=== PATIENT | male | born 1960 | race Caucasian/White ===

== ENCOUNTER 2020-06-18 11:01 | Inpatient (IN) ==
[2020-06-18 11:56] LABS: Basophils # (auto) 0.01 K/uL (0-0.2); Basophils % (auto) 0.1 %; Eosinophils # (auto) 0.07 K/uL (0-0.5); Eosinophils % (auto) 0.6 %; Hematocrit (blood only) 33.9 % (42-52); Hemoglobin 11.2 g/dL (14.0-18.0); Immature Granulocytes # (auto) 0.09 K/uL (0.00-0.02); Immature Granulocytes % (auto) 0.7 %; Lymphocytes # (auto) 1.29 K/uL (1.2-3.4); Lymphocytes % (auto) 10.2 %; Mean Corpuscular Hemoglobin 27.9 pg (25-34); Mean Corpuscular Volume 84.5 fL (80-100); Mean Platelet Volume 9.9 fL (7.4-10.4); Monocytes # (auto) 1.45 K/uL (0.11-0.59); Monocytes % (auto) 11.5 %; Neutrophils # (auto) 9.68 K/uL (1.4-6.5); Neutrophils % (auto) 76.9 %; Platelet Count 276 K/uL (130-400); RDW Coefficient of Variation 17.2 % (11.5-14.5); RDW Standard Deviation 53.5 fL (36.4-46.3); Red Blood Count 4.01 M/uL (4.7-6.1); White Blood Count 12.59 K/uL (4.8-10.8)
[2020-06-18 12:02] LABS: Albumin Level 1.9 gm/dl (3.4-5.0); BUN Creatinine Ratio 17.3 (10-20); Calcium 8.5 mg/dl (8.5-10.1); Creatinine Clr Calc Pharmacy 68.2 ml/min; Est GFR (African American) 76.5; Magnesium 1.8 mg/dl (1.8-2.4); Potassium 3.3 mmol/L (3.5-5.1)
[2020-06-18 12:06] LABS: INR 1.1 (0.9-1.1); Partial Thromboplastin Ratio 1.2; Prothrombin Time 11.7 Seconds (9.0-12.0)
--- NOTE | 2020-06-18 12:13 | XRay Report ---
XR chest 1V portable CLINICAL HISTORY: Dyspnea COMPARISON STUDY: No previous studies for comparison. FINDINGS: The heart is borderline enlarged. Small subpulmonic pleural effusions are visualized. There are bilateral pulmonary airspace opacities. The findings could represent multifocal pneumonia or pul monary edema.[ IMPRESSION: 1. Bilateral pulmonary airspace opacities, multifocal pneumonia versus pulmonary edema. Clinical and radiographic follow-up is recommended. 2. Suspected small bilateral subpulmonic pleural effusions ACT 112: Negative or not required by law. Electronically signed by: Easton Bazan M.D. 06/18/2020 12:12 PM
[2020-06-18 12:15] LABS: Albumin Globulin Ratio 0.4 (0.9-2); Bilirubin,Total 0.7 mg/dl (0.2-1); Globulin 4.4 gm/dl (2.5-4.0); Total Protein 6.3 gm/dl (6.4-8.2); Troponin I 3.43 ng/ml (0-0.045)
[2020-06-18] MEDS ORDERED: FUROSEMIDE 40 MG/4 ML VIAL IV STA (13:15)
[2020-06-18] MEDS ORDERED: POTASSIUM CHLORIDE / WTR 10 MEQ/100 ML PLCT IV SCH (13:30)
[2020-06-18] MEDS ORDERED: POTASSIUM CHLORIDE CRTAB 20 MEQ TABCR PO STA (13:45)
[2020-06-18] MEDS ORDERED: POTASSIUM CHLORIDE / WTR 10 MEQ/100 ML PLCT IV ONE (13:46)
[2020-06-18 14:12] LABS: Appearance Urine Clear (Clear); Bacteria Urine Automated Negative (Negative); Bilirubin Urine Negative (Negative); Blood Urine Trace (Negative); Color Urine Yellow; Glucose Urine UA Negative (Negative); Ketones Urine Negative (Negative); Leukocyte Esterase Urine Negative (Negative); Nitrite Urine Negative (Negative); Protein Urine Negative (Negative); Specific Gravity Urine 1.014 (1.000-1.030); Urobilinogen Urine Negative (Negative)
--- NOTE | 2020-06-18 14:19 | Cardiology Consultation ---
Date of Consultation June 18, 2020 Assessment & Plan (1) Congestive heart failure due to cardiomyopathy: He appears have an element of pulmonary vascular congestion based on his history, x-ray and examination. He was administered additional dose of intravenous diuretic in the emergency room and his breathing already seems improved. He may have a tenuous fluid balance given his severely reduced LV systolic function. He was discharged on daily dose of diuretic. Will have to see if this is adequate over time. No evidence of peripheral edema. Electrolytes also being replaced. He does have an ischemic cardiomyopathy. He is on metoprolol succinate but Pato inhibition was not initiated due to relative hypotension. His blood pressure still appears to represent a relative contraindication to more aggressive medical therapy. Based on his degree of LV dysfunction and his recent myocardial infarction he was discharged with a LifeVest. In the absence of sustained arrhythmia he will not meet criteria for a permanent implantable device for another 30 days. He does not need to wear the life vest in the hospital provided he is on telemetry and immediate defibrillation is available. (2) Coronary disease: His records suggest LAD disease, but there is no mention of disease in any other distribution. He did undergo percutaneous intervention to the LAD a will need to be continued on dual anti-platelet therapy and high-dose atorvastatin. (3) Elevated troponin: He has elevated biomarkers. Did have some mildly elevated biomarkers at the time of admission on June 07. His records do not report any additional values. I suspect his biomarker elevation peaked much higher than that given his severe cardiomyopathy and EKG changes. While his symptoms this morning could have represented recurrent ischemia resulting in pulmonary edema, I do not think his current troponin value is conclusive in that regard. This certainly could represent a declining value from a recent peak obtained at the time of his infarct. He is currently pain free. His symptoms were somewhat atypical in nature. I do not think he requires urgent re-evaluation of his coronaries in the absence of more sustained and recurrent symptoms or other objective signs of ongoing ischemia. His pain could also represent post myocardial chest discomfort. He certainly had a significant infarct, and has some pleuritic symptoms of chest discomfort and a leukocytosis as well. History of Present Illness Reason for Consultation: Shortness of breath, chest pain Requesting Physician: Blayne Attending Physician: Blayne History of Present Illness The patient is a 60-year-old gentleman with a history of coronary artery disease he suffered an acute anterior myocardial infarction on the 07 of June. Patient states on the day of his KS he began to experience symptoms of weakness and chest discomfort. His discomfort involved a sense pressure in the precordium and back discomfort. This was fairly severe in nature any contacted an ambulance and was transported to [facility]. He was noted to have an acute KS and transferred immediately to the catheterization suite where he underwent percutaneous intervention to the left anterior descending. The remainder of his hospitalization was complicated by development heart failure due to severe ischemic cardiomyopathy. He was eventually discharged to a local rehabilitation center for severe weakness and debility. He was sent out of the hospital with a LifeVest due to his recent KS and severely reduced LV systolic function (reported to have an ejection fraction of 16%) The patient arrived at rehab yesterday and this morning began to experience symptoms of both shortness of breath and chest discomfort. This discomfort involves several different portions of his chest including the left lower chest, right lower chest and right side. The symptoms were sharp in character. There were fairly fleeting and not severe. Based on the nature of his symptoms he was transported to our facility for evaluation. At the time of my interview the patient states that he is feeling much better he did not endorse any current symptoms of chest discomfort. He states that his breathing is actually quite good currently. Prior to his myocardial infarction the patient states that he was an active individual although he does not participate in regular exercise. He needs to at ascend 18 stairs at his apartment complex on a routine basis and can do this without symptom. He does have an element of dyspnea at times and is known to have COPD. Leading up to his myocardial infarction he did not have a history of chest discomfort Allergies Allergy/AdvReac Type Severity Reaction Status Date / Time No Known Allergies Allergy Unverified 06/18/20 12:07 Home Medications Medication Instructions Recorded Confirmed Type acetaminophen [Tylenol] 650 mg PO QID PRN 06/18/20 06/18/20 History albuterol 90 mcg INHALATION Q4H PRN 06/18/20 06/18/20 History aripiprazole 10 mg PO DAILY 06/18/20 06/18/20 History ascorbic acid (vitamin C) [Vitamin 500 mg PO DAILY 06/18/20 06/18/20 History C] aspirin 81 mg PO DAILY 06/18/20 06/18/20 History atorvastatin 80 mg PO HS 06/18/20 06/18/20 History cholecalciferol (vitamin D3) 50 mcg PO DAILY 06/18/20 06/18/20 History [Vitamin D3] clonazepam 0 mg PO UD 06/18/20 06/18/20 History clopidogrel 75 mg PO DAILY 06/18/20 06/18/20 History docusate sodium 100 mg PO BID 06/18/20 06/18/20 History duloxetine 60 mg PO BID 06/18/20 06/18/20 History enoxaparin 40 mg SUBCUT DAILY 06/18/20 06/18/20 History famotidine 20 mg PO DAILY 06/18/20 06/18/20 History folic acid 1 mg PO DAILY 06/18/20 06/18/20 History furosemide 20 mg PO DAILY 06/18/20 06/18/20 History hydrocodone-acetaminophen 1 tab PO Q6H PRN 06/18/20 06/18/20 History levothyroxine 50 mcg PO DAILY 06/18/20 06/18/20 History melatonin 3 mg PO HS 06/18/20 06/18/20 History metoprolol succinate 0 mg PO DAILY 06/18/20 06/18/20 History pantoprazole 40 mg PO DAILYBB 06/18/20 06/18/20 History polysaccharide iron complex 150 mg PO BID 06/18/20 06/18/20 History [Ferrex 150] trazodone 150 mg PO HS 06/18/20 06/18/20 History umeclidinium [Incruse Ellipta] 1 inh INHALATION DAILY 06/18/20 06/18/20 History zinc sulfate 220 mg PO DAILY 06/18/20 06/18/20 History Patient History Medical History (Updated 06/18/20 @ 14:20 by ROBYN Villasenor) Congestive heart failure due to cardiomyopathy COPD (chronic obstructive pulmonary disease) Coronary disease Ischemic cardiomyopathy Reported ejection fraction of 16% Myocardial infarction Anterior. 06/07/2020. Treated with percutaneous intervention at [facility] Surgical History (Updated 06/18/20 @ 14:22 by ROBYN Villasenor) Hx of cardiac cath Family History Denies family history of Coronary heart disease Social History Smoking Status: Current every day smoker Tobacco Type: Cigarettes Preferred Language: Occitan Feels Safe at Home: Yes Review of Systems Review of Systems: All systems reviewed & are unremarkable except as noted in HPI & below No recent fevers or chills. Some dizziness on occasion. This tends to occur when changing positions. Severe weakness. Significant drowsiness. Physical Exam Physical Exam: The patient is alert and oriented most of the time, but does become drowsy if not stimulated. He appears quite debilitated. HEENT: Pupils are equal and reactive to light and accommodation. Extraocular movements are intact. The sclerae are anicteric. Surgical scar midline scalp Neuro: Cranial nerves intact (wearing mask) Neck: Patient's neck is supple. He has palpable carotid pulses bilaterally without bruits on auscultation. The thyroid is not enlarged. Lungs: Normal respiratory effort. Crackles in both lungs, right worse than left. No expiratory wheezing. Cardiac: Heart demonstrates a regular rate and rhythm. Normal S1 and S2. No murmurs on examination. Chest: No pain to palpation. Pulses: The patient has palpable radial pulses bilaterally that are equal in intensity but diminished. Extremities: There was no evidence of hypoperfusion. There is no cyanosis or clubbing. There is no edema. Skin: I did not appreciate any rashes on examination today. Multiple ecchymoses in both hands and arms. Results & Data ([facility]) Vital Signs (Past 12 Hours) Vital Signs Temp Pulse Resp BP Pulse Ox 06/18/20 12:00 71 19 97/64 L 92 06/18/20 11:43 73 18 93 06/18/20 11:30 73 16 98/71 L 92 06/18/20 11:07 74 23 99/68 L 94 06/18/20 11:00 36.8 C 74 23 99/68 L 94 Laboratory Results Abnormal Lab Results 06/18/20 06/18/20 06/18/20 11:15 11:15 11:15 WBC 12.59 H RBC 4.01 L Hgb 11.2 L Hct 33.9 L MCV 84.5 MCH 27.9 MCHC 33.0 RDW Std Deviation 53.5 H RDW Coeff of Adrien 17.2 H Plt Count 276 MPV 9.9 Immature Gran % (Auto) 0.7 Neut % (Auto) 76.9 Lymph % (Auto) 10.2 [place] % (Auto) 11.5 Eos % (Auto) 0.6 Baso % (Auto) 0.1 Neut # (Auto) 9.68 H Lymph # (Auto) 1.29 [place] # (Auto) 1.45 H Eos # (Auto) 0.07 Baso # (Auto) 0.01 Immature Gran # (Auto) 0.09 H PT 11.7 INR 1.1 APTT 33.0 H PTT Ratio 1.2 Sodium 135 L Potassium 3.3 L Chloride 98 Carbon Dioxide 31 Anion Gap 6.0 BUN 21 H Creatinine 1.19 Est Cr Clr Drug Dosing 68.2 Est GFR ( Amer) 76.5 Est GFR (Non-Af Amer) 66.0 BUN/Creatinine Ratio 17.3 Glucose 94 Calcium 8.5 Magnesium 1.8 Total Bilirubin 0.7 AST 38 H ALT 48 Alkaline Phosphatase 47 Troponin I 3.430 H* Total Protein 6.3 L Albumin 1.9 L Globulin 4.4 H Albumin/Globulin Ratio 0.4 L COVID-19 Eval Order 06/18/20 13:30 WBC RBC Hgb Hct MCV MCH MCHC RDW Std Deviation RDW Coeff of Adrien Plt Count MPV Immature Gran % (Auto) Neut % (Auto) Lymph % (Auto) [place] % (Auto) Eos % (Auto) Baso % (Auto) Neut # (Auto) Lymph # (Auto) [place] # (Auto) Eos # (Auto) Baso # (Auto) Immature Gran # (Auto) PT INR APTT PTT Ratio Sodium Potassium Chloride Carbon Dioxide Anion Gap BUN Creatinine Est Cr Clr Drug Dosing Est GFR ( Amer) Est GFR (Non-Af Amer) BUN/Creatinine Ratio Glucose Calcium Magnesium Total Bilirubin AST ALT Alkaline Phosphatase Troponin I Total Protein Albumin Globulin Albumin/Globulin Ratio COVID-19 Eval [facility] Findings Chest x-ray obtained the time admission revealed bilateral pulmonary vascular congestion versus viral pneumonia. I reviewed the records from [facility] as well as [facility] ECG Additional Comments: EKG obtained the time admission revealed normal sinus rhythm with old anterior myocardial infarction and T-wave inversions in the inferior lead, likely all related to recent anterior infarct. PG Care Time/CCT Total # of Minutes Spent Total Time Spent with Patient: Total time spent is greater than 50% in coordination of care (as documented) at patient's floor/unit and/or counseling patient: Coding Level of Care Code 97010 OBS Care - Level 3 Diagnoses Congestive heart failure due to cardiomyopathy I50.9; I42.9 Coronary disease I25.10 Elevated troponin R77.8
--- NOTE | 2020-06-18 14:25 | History & Physical Report ---
Date of Service June 18, 2020 Assessment & Plan (1) Coronary disease: As per HPI patient with LAD stent, with return of angina this morning. Patient is currently pain free. - Cardiology consulted- appreciate assistance, no current plans to go to photographic laboratory technician - Continue DAPT - Lovenox 40 if troponin increase consider going to fondaparinux (oasis V trial) - Continue BB as patient remains hemodynamically stable and no evidenc of worsening failure - Continue high dose statin - Trend Troponin and ECG q6 hours / PRN chest pain - Admit to telemetry for observation - A1c morning labs (2) Myocardial infarction: LAD with Stent as above - Trend as above (3) Congestive heart failure due to cardiomyopathy: EF 16% per [facility] [place] reports. Likely ICM - Patient discharged on LifeVest - Continue lifeVest when dishcarged - Medication optimization as above - Mild evidence of congestion in the EMD, diurese now and follow - BiPAP if needed for COPD and CHF on standby - Follow biomarkers and symptoms - Slowly introduce SUZANNE/ARB onto patient as blood pressure can tolerate - Diurese up front offload some volume, follow biomarkers and physical exam - goal 500-1000 ml negative. (4) HTN (hypertension): As above, diurese, beta-valeriy, and add afterload reducing agent if able. (5) COVID-19: Unsure of onset of symptoms or diagnosis. - No results noted from [facility] or [facility] - Patient was treated with ABX and steroids while at [facility] for COPD exacerbation and CAP - Will add on Decadron 6 mg PO daily with COPD - If worsens will add on Azithromycin for COPD exacerbation with COVID - hold remdesivir as patient virtually asymptomatic. If symptoms worsen or biomarkers/end organ perfusion worsens in relation to COVID may add. (6) COPD (chronic obstructive pulmonary disease): As above Patient recently stopped smoking, smoked 1-5 cigarettes per day for 40 years. - Continue albuterol and Umeclidinium (7) Anxiety and depression: Continue current outpatient regime, awaiting outside records from [facility]/outside PCP for reference. (8) VTE (venous thromboembolism): SCDS Lovenox 40 (9) Hypothyroid: TSH pending in morning Continue Synthroid dose History of Present Illness [facility] 60[facility] with a significant history for COPD, smoker quit as of 07 June, general debility and weakness, hypertension, depression/anxiety, hyperlipidemia, and hypothyroidism. Brought to the emergency room today via EMS from [facility] where the patient was a resident following a STEMI on 07 June. Patient was originally seen on 06 June at [facility] where the patient was experiencing chest pain and having a NSTEMI as above and was transferred to [facility] for cardiac cath and evaluation. Patient was taken to the photographic laboratory technician and status post PTCA to the proximal LAD also noticed to have a ejection fraction of 16%. Was discharged on a life vest for further evaluation following rehabilitation. Patient also underwent treatment for CAP at that time and presumed to complete a course of levofloxacin. Patient got up this morning to go to rehab, was experiencing symptoms very similar to what he experienced on 07 June; to include chest pain left sternal squeezing in nature, shortness of breath, not mild nausea, and feeling cold and sweaty. Patient received aspirin oxygen and an EKG at [facility] and that is when the patient's symptoms improved. Patient has been chest pain-free in the ER and on my evaluation. In the emergency room, cardiology was emergently consulted, EKG was done. Patient will be admitted for observation treatment of symptoms and monitoring of hemodynamic/fluid volume status. Patient wishes to be full code. COVID (+) Allergies Allergy/AdvReac Type Severity Reaction Status Date / Time No Known Allergies Allergy Unverified 06/18/20 12:07 Home Medications Medication Instructions Recorded Confirmed Type acetaminophen [Tylenol] 650 mg PO QID PRN 06/18/20 06/18/20 History albuterol 90 mcg INHALATION Q4H PRN 06/18/20 06/18/20 History aripiprazole 10 mg PO DAILY 06/18/20 06/18/20 History ascorbic acid (vitamin C) [Vitamin 500 mg PO DAILY 06/18/20 06/18/20 History C] aspirin 81 mg PO DAILY 06/18/20 06/18/20 History atorvastatin 80 mg PO HS 06/18/20 06/18/20 History cholecalciferol (vitamin D3) 50 mcg PO DAILY 06/18/20 06/18/20 History [Vitamin D3] clonazepam 0 mg PO UD 06/18/20 06/18/20 History clopidogrel 75 mg PO DAILY 06/18/20 06/18/20 History docusate sodium 100 mg PO BID 06/18/20 06/18/20 History duloxetine 60 mg PO BID 06/18/20 06/18/20 History enoxaparin 40 mg SUBCUT DAILY 06/18/20 06/18/20 History famotidine 20 mg PO DAILY 06/18/20 06/18/20 History folic acid 1 mg PO DAILY 06/18/20 06/18/20 History furosemide 20 mg PO DAILY 06/18/20 06/18/20 History hydrocodone-acetaminophen 1 tab PO Q6H PRN 06/18/20 06/18/20 History levothyroxine 50 mcg PO DAILY 06/18/20 06/18/20 History melatonin 3 mg PO HS 06/18/20 06/18/20 History metoprolol succinate 0 mg PO DAILY 06/18/20 06/18/20 History pantoprazole 40 mg PO DAILYBB 06/18/20 06/18/20 History polysaccharide iron complex 150 mg PO BID 06/18/20 06/18/20 History [Ferrex 150] trazodone 150 mg PO HS 06/18/20 06/18/20 History umeclidinium [Incruse Ellipta] 1 inh INHALATION DAILY 06/18/20 06/18/20 History zinc sulfate 220 mg PO DAILY 06/18/20 06/18/20 History Past Med/Surg History Medical History (Updated 06/18/20 @ 15:08 by ROBYN Villasenor) Congestive heart failure due to cardiomyopathy COPD (chronic obstructive pulmonary disease) Coronary disease HTN (hypertension) Hypothyroid Ischemic cardiomyopathy Reported ejection fraction of 16% Myocardial infarction Anterior. 06/07/2020. Treated with percutaneous intervention at [facility] Surgical History (Updated 06/18/20 @ 14:22 by ROBYN Villasenor) Hx of cardiac cath Family History Denies family history of Coronary heart disease Social History Smoking Status: Current every day smoker Tobacco Type: Cigarettes Preferred Language: Bruneian Feels Safe at Home: Yes Review of Systems Review of Systems: REVIEW OF SYSTEMS: Constitutional: No fever, sweats or chills Eyes: No diplopia, no worsening or blurred vision ENT: normal hearing, no trouble swallowing Respiratory: (+) cough, dyspnea on exertion, (-) sputum, dyspnea at rest Cardiovascular: No chest pain at current, Abdomen: No pain, nausea, vomiting, diarrhea or constipation Musculoskeletal: No joint pain, calf pain, swelling Neurologic: No weakness, numbness/tingling, or balance problems Psychiatric: No anxiety or depression Skin: No rash or itch Physical Exam Physical Exam: PHYSICAL EXAM: General: awake, alert, no apparent distress, generally slow in response and speech. Head: Normocephalic, atraumatic ENT: PERRL, EOMI, no pharyngeal exudate, mucous membranes moist Neuro: AAO x 3, speech clear and appropriate, strength intact bilaterally 4/5, sensation intact and equal all extremities, no pronator drift Chest: equal rise and fall of the chest, no accessory muscle use, no heaves or thrills, crackles bilaterally in the bases, on room air, Cardiac: Regular rate and rhythm, telelmetry reviewed, skin warm dry, cap refill <3 seconds, peripheral pusles +2 no JVD, no murmur, no JVD, no edema GI: NABS x 4 quadrants, soft, nontender to palpation, no rebound, guarding or tenderness : Spontaneously voiding, no pain, no CVA tenderness, Extremities: Normal inspection, no peripheral edema or erythema, calfs nontender to palpation Psych: Normal mood and affect cits Skin: no rash or erythema Constitutional: + cachectic; no acute distress Eyes: normal visual arreguin by confrontation and + anicteric sclerae Neck: normal visual inspection and trachea midline Respiratory: normal respiratory effort; no respiratory distress Auscultation: + crackles Cardiovascular: Rate/Rhythm: regular rate and regular rhythm Gastrointestinal (Abdomen): Inspection/Auscultation: abdomen not distended Percussion/Palpation: abdomen soft; abdomen nontender Musculoskeletal: Head/Neck/Chest: normocephalic and head atraumatic Neg for peripheral LE edema, + pedal pulses Skin: no rashes, warm and dry Neurologic: awake; not confused Speech / Cognition: normal speech Psychiatric: A+Ox3, euthymic affect Lymphatic: Exam as done by Sherron Cisneros DO Results & Data Results & Data ([facility]) Vital Signs (Past 12 Hours) Vital Signs Temp Pulse Resp BP Pulse Ox 06/18/20 12:00 71 19 97/64 L 92 06/18/20 11:43 73 18 93 06/18/20 11:30 73 16 98/71 L 92 06/18/20 11:07 74 23 99/68 L 94 06/18/20 11:00 36.8 C 74 23 99/68 L 94 Supervising Physician Co-Signing Physician Notes Pt seen and examined by me. Denies current chest pain or SOB. No further epigastric pain. Does feel nauseated, but no emesis. Tolerating PO without issue. Agree with HPI/ROS as noted by ORCHARD WORKER See above for my exam in PE section Agree with plan as outlined above Recent STEMI, d/c'd from [facility] [place] with Life Vest Trop at 3.4 on admission, uncertain if new event vs trop elevated from last event Seen by cardiology in the ED, planning to monitor trop for now and if further increase, will consider photographic laboratory technician at that time Pt was d/c'd on brilinta, however is currently on plavix Cards recs for resume brilinta COVID + as a screening test, no allison COVID sx PG Care Time/CCT Total # of Minutes Spent Total Time Spent with Patient: Total time spent is greater than 50% in coordination of care (as documented) at patient's floor/unit and/or counseling patient: Coding Level of Care Code 50738 Initial Inpt Care Lvl 3 Diagnoses Coronary disease I25.119 Associated angina: with unspecified angina Coronary Disease-Associated Artery/Lesion type: [place] artery [place] vs. transplanted heart: [place] heart Myocardial infarction I21.9 Congestive heart failure due to cardiomyopathy I50.9; I42.9 HTN (hypertension) I10 Hypertension type: unspecified COVID-19 U07.1 COPD (chronic obstructive pulmonary disease) J44.9 COPD type: emphysema Anxiety and depression F41.9; F32.9 VTE (venous thromboembolism) I82.90 Hypothyroid E03.9 Hypothyroidism type: unspecified (1) Coronary disease Associated angina: with unspecified angina Coronary Disease-Associated Artery/Lesion type: [place] artery [place] vs. transplanted heart: [place] heart Qualified Code(s): I25.119 - Atherosclerotic heart disease of [place] coronary artery with unspecified angina pectoris (2) Hypothyroid Hypothyroidism type: unspecified Qualified Code(s): E03.9 - Hypothyroidism, unspecified (3) COPD (chronic obstructive pulmonary disease) COPD type: emphysema (4) HTN (hypertension) Hypertension type: unspecified Qualified Code(s): I10 - Essential (primary) hypertension
[2020-06-18] MEDS ORDERED: ALBUTEROL HFA 8 GM INHALER INH PRN (16:40)
[2020-06-18] MEDS ORDERED: NITROGLYCERIN SL 0.4 MG/TAB TAB SL PRN (16:40)
--- NOTE | 2020-06-18 16:49 | Electrocardiogram Report ---
Test Reason : Blood Pressure : / mmHG Vent. Rate : 076 BPM Atrial Rate : 076 BPM P-R Int : 168 ms QRS Dur : 094 ms QT Int : 414 ms P-R-T Axes : 061 080 -56 degrees QTc Int : 465 ms Normal sinus rhythm Possible Left atrial enlargement Low voltage QRS old anteroseptal infarct Abnormal ECG No previous ECGs available Confirmed by Faraz Harvey ([id number]) on 06/18/2020 4:49:18 PM Referred By: REFERRED SELF Confirmed By:Douglas Harvey
--- NOTE | 2020-06-18 18:14 | Emergency Department Note ---
Impression & Plan COVID-19, Coronary disease, Elevated troponin, Hypoxia, Low left ventricular ejection fraction ED Provider Note NAME: PATRICK DEAN AGE: 60 SEX: M ARRIVES VIA: Ambulance INFORMANT: Patient, [facility] records, [facility] records ED PROVIDER(S): Rosa M Wright MD CHIEF COMPLAINT: SOB PLAN: Disposition: Inpatient Condition: Fair Referral: Hospitalist, cardiology MEDICAL DECISION MAKING: This pt was evaluated and appeared to be in no distress. Pt appeared to be chronically ill but was fairly stable on n/c O2 supplementation. His Lifevest was removed by EMS, but after interventions were performed it was replaced. IV access was obtained and lab work was drawn. Pt was placed on the surveillance monitor and noted to be in a sinus rhythm at 74 bpm. He was noted to be persistently hypotensive at 90 systolic. EKG reveals deep Q waves anteroseptal leads. Records reveals post [employer] EF of 19% at [facility] via [facility] packet. Today's trop is 3.43, difficult to say if this is trending up of down from recent large infarct. Dr Harvey of [facility] was consulted. Pt CXR was reviewed and is concerning for CHF vs pneumonitis. He recommended Lasix IV, which was given. Pt later tested positive for COVID on admission screening. Case was d/w hospitalist service for further management. Triage Nursing notes reviewed. Prior medical records reviewed, [facility] Vital Signs: reviewed and remarkable for hypoxia, hypotension Differential diagnosis: Reactive airway disease, pneumonia, pneumothorax, COPD, CHF, infections, cardiac ischemia, pulmonary embolism, musculoskeletal, gastrointestinal, as well as other pathologies. ER treatment provided: IV lasix n/c O2 Diagnostics interpreted by me: ECG: NSR at [address] abnl inferior, anteriolateral leads. No PVC, no PAC. Normal QTc at 465. No prior avail Cardiac Monitoring: An order for cardiac monitoring was placed and reveals a NSR at 74 bpm. Laboratory studies: Troponin 3.43 Imaging studies: XR chest 1V portable CLINICAL HISTORY: Dyspnea COMPARISON STUDY: No previous studies for comparison. FINDINGS: The heart is borderline enlarged. Small subpulmonic pleural effusions are visualized. There are bilateral pulmonary airspace opacities. The findings could represent multifocal pneumonia or pulmonary edema.[ IMPRESSION: 1. Bilateral pulmonary airspace opacities, multifocal pneumonia versus pulmonary edema. Clinical and radiographic follow-up is recommended. 2. Suspected small bilateral subpulmonic pleural effusions ACT 112: Negative or not required by law. Electronically signed by: Easton Bazan M.D. 06/18/2020 12:12 PM Dictated: 06/18/201207Transcribed: 06/18/201207 Consultation(s): Hospitalistisaac HPI: 60/M arrives for evaluation of SOB and epigastric pain. Pt had a STEMI 06/12 and was transferred from [facility] to [facility] where he underwent LAD stenting. He has a post procedure EF of 19% by nursing report and was d/c to [facility] for rehab with a LifeVest. Pt had an episode of epigastric pain and SOB today, was noted to be hypoxic. He was given NTG and placed on O2. Pt was transferred to [facility] for further evaluation. ROS: See above HPI for pertinent positives & negatives. A total of 10 systems reviewed and were otherwise negative. PAST MEDICAL HISTORY:See Below PAST SURGICAL HISTORY:See Below FAMILY HISTORY:See Below SOCIAL HISTORY:See Below HOME MEDICATIONS:See Below ALLERGIES:See Below VITALS:See Below PHYSICAL EXAMINATION: Vital signs reviewed. Hypotensive, hypoxia on RA General: Chronically ill-appearing 60 year old male, in no significant distress. Disheveled. HEENT: No scleral icterus, PERRLA, neck supple. Cardiovascular: Regular rate and rhythm, no extra sounds. Pulmonary: Coarse and distant breath sounds to auscultation bilaterally, normal work of breathing on n/c O2. Abdomen: Soft, nontender, nondistended, positive bowel sounds. Musculoskeletal: Atraumatic, no peripheral edema. Neurologic: Patient awake alert and oriented x 3, moves all extremities, but speech is muffled. Articulation is difficult to understand. Aware of surroundings and events. Skin: Warm, dry, no rash Rosa M Wright MD Past Med/Surg History Medical History (Updated 06/18/20 @ 18:14 by Rosa M Wright MD) Congestive heart failure due to cardiomyopathy COPD (chronic obstructive pulmonary disease) Coronary disease HTN (hypertension) Hypothyroid Ischemic cardiomyopathy Reported ejection fraction of 16% Myocardial infarction Anterior. 06/07/2020. Treated with percutaneous intervention at [facility] Surgical History Hx of cardiac cath Family History Denies family history of Coronary heart disease Social History (Updated 06/19/20 @ 09:57 by Rosa M Wright MD) Smoking Status: Current every day smoker Tobacco Type: Cigarettes Cigarettes Per Day: 25; Second Hand Exposure: Yes; Do You Dip or Chew Tobacco: No; Tobacco Cessation Education Requested by Patient: No Hx Alcohol Use: Yes (Beer) Hx Substance Use: Yes Last Used Substance Other:: Cyndie Substance Use Type Other:: Marijuana Preferred Language: Cuban Communication Ability: Effective Beliefs That Will Affect Care: None Current Living Situation: Rehab Current Living Situation Comment: [facility] Feels Safe at Home: Yes Safety Concerns: Feels Safe At This Time Assistive Devices: Glasses Assistive Devices Comment: Life vest Allergies Allergies Allergy/AdvReac Type Severity Reaction Status Date / Time No Known Allergies Allergy Unverified 06/18/20 12:07 Home Meds Home Medications Medication Instructions Recorded Confirmed acetaminophen [Tylenol] 650 mg PO QID PRN 06/18/20 06/18/20 albuterol 90 mcg INHALATION Q4H PRN 06/18/20 06/18/20 aripiprazole 10 mg PO DAILY 06/18/20 06/18/20 ascorbic acid (vitamin C) [Vitamin 500 mg PO DAILY 06/18/20 06/18/20 C] aspirin 81 mg PO DAILY 06/18/20 06/18/20 atorvastatin 80 mg PO HS 06/18/20 06/18/20 cholecalciferol (vitamin D3) 50 mcg PO DAILY 06/18/20 06/18/20 [Vitamin D3] clonazepam 0 mg PO UD 06/18/20 06/18/20 clopidogrel 75 mg PO DAILY 06/18/20 06/18/20 docusate sodium 100 mg PO BID 06/18/20 06/18/20 duloxetine 60 mg PO BID 06/18/20 06/18/20 enoxaparin 40 mg SUBCUT DAILY 06/18/20 06/18/20 famotidine 20 mg PO DAILY 06/18/20 06/18/20 folic acid 1 mg PO DAILY 06/18/20 06/18/20 furosemide 20 mg PO DAILY 06/18/20 06/18/20 hydrocodone-acetaminophen 1 tab PO Q6H PRN 06/18/20 06/18/20 levothyroxine 50 mcg PO DAILY 06/18/20 06/18/20 melatonin 3 mg PO HS 06/18/20 06/18/20 metoprolol succinate 0 mg PO DAILY 06/18/20 06/18/20 pantoprazole 40 mg PO DAILYBB 06/18/20 06/18/20 polysaccharide iron complex 150 mg PO BID 06/18/20 06/18/20 [Ferrex 150] trazodone 150 mg PO HS 06/18/20 06/18/20 umeclidinium [Incruse Ellipta] 1 inh INHALATION DAILY 06/18/20 06/18/20 zinc sulfate 220 mg PO DAILY 06/18/20 06/18/20 Results & Data (ED) Vital Signs Vital Signs - 24 hr 06/18/20 11:00 06/18/20 11:07 06/18/20 11:30 Temperature 36.8 C Temperature Source Oral Pulse Rate 74 74 73 Pulse Rate from SpO2 Sensor 74 73 Respiratory Rate 23 23 16 Respiratory Effort / Characteristics Non-Labored Spontaneous Respiratory Depth Normal Respiratory Pattern Regular Blood Pressure 99/68 L 99/68 L 98/71 L Blood Pressure Mean 78 78 80 Blood Pressure Position Lying Pulse Oximetry 94 94 92 Oxygen Delivery Method Room Air Nasal Cannula Nasal Cannula Nasal Cannula Oxygen Flow Rate 0 2 2 Sepsis Recent Fever Within 48 Hours No Sepsis New/Unexplained Change in Mental Status N/A Sepsis Action Taken by Nursing No Action Required Oxygen Flow Rate - Titration 2 Pulse Oximetry Post Tiitration 95 06/18/20 11:43 06/18/20 12:00 06/18/20 12:30 Temperature Temperature Source Pulse Rate 73 71 72 Pulse Rate from SpO2 Sensor 71 72 Respiratory Rate 18 19 33 H Respiratory Effort / Characteristics Respiratory Depth Respiratory Pattern Blood Pressure 97/64 L 92/67 L Blood Pressure Mean 75 75 Blood Pressure Position Pulse Oximetry 93 92 90 Oxygen Delivery Method Nasal Cannula Nasal Cannula Oxygen Flow Rate 2 2 Sepsis Recent Fever Within 48 Hours Sepsis New/Unexplained Change in Mental Status Sepsis Action Taken by Nursing Oxygen Flow Rate - Titration Pulse Oximetry Post Tiitration 06/18/20 12:54 06/18/20 13:00 06/18/20 13:06 Temperature Temperature Source Pulse Rate 64 87 72 Pulse Rate from SpO2 Sensor 72 Respiratory Rate 15 16 19 Respiratory Effort / Characteristics Respiratory Depth Respiratory Pattern Blood Pressure 139/99 133/78 90/56 L Blood Pressure Mean 112 96 67 Blood Pressure Position Pulse Oximetry 92 Oxygen Delivery Method Oxygen Flow Rate Sepsis Recent Fever Within 48 Hours Sepsis New/Unexplained Change in Mental Status Sepsis Action Taken by Nursing Oxygen Flow Rate - Titration Pulse Oximetry Post Tiitration 06/18/20 13:31 06/18/20 14:00 Temperature Temperature Source Pulse Rate 70 70 Pulse Rate from SpO2 Sensor 70 70 Respiratory Rate 19 19 Respiratory Effort / Characteristics Respiratory Depth Respiratory Pattern Blood Pressure 100/61 104/73 Blood Pressure Mean 74 83 Blood Pressure Position Pulse Oximetry 92 90 Oxygen Delivery Method Oxygen Flow Rate Sepsis Recent Fever Within 48 Hours Sepsis New/Unexplained Change in Mental Status Sepsis Action Taken by Nursing Oxygen Flow Rate - Titration Pulse Oximetry Post Tiitration Laboratory Data Result diagrams: 06/18/20 11:15 06/18/20 11:15 Lab Results 06/18/20 06/18/20 06/18/20 Range/Units 11:15 11:15 11:15 WBC 12.59 H (4.8-10.8) K/uL RBC 4.01 L (4.7-6.1) M/uL Hgb 11.2 L (14.0-18.0) g/dL Hct 33.9 L (42-52) % MCV 84.5 (80-100) fL MCH 27.9 (25-34) pg MCHC 33.0 (32-36) g/dL RDW Std Deviation 53.5 H (36.4-46.3) fL RDW Coeff of Adrien 17.2 H (11.5-14.5) % Plt Count 276 (130-400) K/uL MPV 9.9 (7.4-10.4) fL Immature Gran % (Auto) 0.7 % Neut % (Auto) 76.9 % Lymph % (Auto) 10.2 % [place] % (Auto) 11.5 % Eos % (Auto) 0.6 % Baso % (Auto) 0.1 % Neut # (Auto) 9.68 H (1.4-6.5) K/uL Lymph # (Auto) 1.29 (1.2-3.4) K/uL [place] # (Auto) 1.45 H (0.11-0.59) K/uL Eos # (Auto) 0.07 (0-0.5) K/uL Baso # (Auto) 0.01 (0-0.2) K/uL Immature Gran # (Auto) 0.09 H (0.00-0.02) K/uL PT 11.7 (9.0-12.0) Seconds INR 1.1 (0.9-1.1) APTT 33.0 H (21.0-31.0) Seconds PTT Ratio 1.2 Sodium 135 L (136-145) mmol/L Potassium 3.3 L (3.5-5.1) mmol/L Chloride 98 (98-107) mmol/L Carbon Dioxide 31 (21-32) mmol/L Anion Gap 6.0 (3-11) BUN 21 H (7-18) mg/dl Creatinine 1.19 (0.6-1.4) mg/dl Est Cr Clr Drug Dosing 68.2 ml/min Est GFR ( Amer) 76.5 Est GFR (Non-Af Amer) 66.0 BUN/Creatinine Ratio 17.3 (10-20) Glucose 94 (70-99) mg/dl Estimat Average Glucose mg/dl Hemoglobin A1c (4.5-5.6) % Calcium 8.5 (8.5-10.1) mg/dl Magnesium 1.8 (1.8-2.4) mg/dl Total Bilirubin 0.7 (0.2-1) mg/dl AST 38 H (15-37) U/L ALT 48 (12-78) U/L Alkaline Phosphatase 47 (45-117) U/L Troponin I 3.430 H* (0-0.045) ng/ml Total Protein 6.3 L (6.4-8.2) gm/dl Albumin 1.9 L (3.4-5.0) gm/dl Globulin 4.4 H (2.5-4.0) gm/dl Albumin/Globulin Ratio 0.4 L (0.9-2) Urine Color Urine Appearance (Clear) Urine pH (4.5-7.5) Ur Specific [place] (1.000-1.030) Urine Protein (Negative) Urine Glucose (UA) (Negative) Urine Ketones (Negative) Urine Blood (Negative) Urine Nitrite (Negative) Urine Bilirubin (Negative) Urine Urobilinogen (Negative) Ur Leukocyte Esterase (Negative) Urine WBC (Auto) (0-5) /hpf Urine RBC (Auto) (0-4) /hpf U Hyaline Cast (Auto) (0-5) /lpf U Epithel Cells (Auto) (0-5) /lpf Urine Bacteria (Auto) (Negative) COVID-19 Eval Order SARS-CoV-2, RNA, NAAT (NEGATIVE) 06/18/20 06/18/20 06/18/20 Range/Units 11:15 13:30 13:30 WBC (4.8-10.8) K/uL RBC (4.7-6.1) M/uL Hgb (14.0-18.0) g/dL Hct (42-52) % MCV (80-100) fL MCH (25-34) pg MCHC (32-36) g/dL RDW Std Deviation (36.4-46.3) fL RDW Coeff of Adrien (11.5-14.5) % Plt Count (130-400) K/uL MPV (7.4-10.4) fL Immature Gran % (Auto) % Neut % (Auto) % Lymph % (Auto) % [place] % (Auto) % Eos % (Auto) % Baso % (Auto) % Neut # (Auto) (1.4-6.5) K/uL Lymph # (Auto) (1.2-3.4) K/uL [place] # (Auto) (0.11-0.59) K/uL Eos # (Auto) (0-0.5) K/uL Baso # (Auto) (0-0.2) K/uL Immature Gran # (Auto) (0.00-0.02) K/uL PT (9.0-12.0) Seconds INR (0.9-1.1) APTT (21.0-31.0) Seconds PTT Ratio Sodium (136-145) mmol/L Potassium (3.5-5.1) mmol/L Chloride (98-107) mmol/L Carbon Dioxide (21-32) mmol/L Anion Gap (3-11) BUN (7-18) mg/dl Creatinine (0.6-1.4) mg/dl Est Cr Clr Drug Dosing ml/min Est GFR ( Amer) Est GFR (Non-Af Amer) BUN/Creatinine Ratio (10-20) Glucose (70-99) mg/dl Estimat Average Glucose 117 mg/dl Hemoglobin A1c 5.7 H (4.5-5.6) % Calcium (8.5-10.1) mg/dl Magnesium (1.8-2.4) mg/dl Total Bilirubin (0.2-1) mg/dl AST (15-37) U/L ALT (12-78) U/L Alkaline Phosphatase (45-117) U/L Troponin I (0-0.045) ng/ml Total Protein (6.4-8.2) gm/dl Albumin (3.4-5.0) gm/dl Globulin (2.5-4.0) gm/dl Albumin/Globulin Ratio (0.9-2) Urine Color Yellow Urine Appearance Clear (Clear) Urine pH 6.0 (4.5-7.5) Ur Specific [place] 1.014 (1.000-1.030) Urine Protein Negative (Negative) Urine Glucose (UA) Negative (Negative) Urine Ketones Negative (Negative) Urine Blood Trace H (Negative) Urine Nitrite Negative (Negative) Urine Bilirubin Negative (Negative) Urine Urobilinogen Negative (Negative) Ur Leukocyte Esterase Negative (Negative) Urine WBC (Auto) 1-5 (0-5) /hpf Urine RBC (Auto) 5-10 H (0-4) /hpf U Hyaline Cast (Auto) 1-5 (0-5) /lpf U Epithel Cells (Auto) 10-20 H (0-5) /lpf Urine Bacteria (Auto) Negative (Negative) COVID[facility]19 [facility] [place], RNA, NAAT (NEGATIVE) 06/18/20 Range/Units 13:30 WBC (4.8-10.8) K/uL RBC (4.7-6.1) M/uL Hgb (14.0-18.0) g/dL Hct (42-52) % MCV (80-100) fL MCH (25-34) pg MCHC (32-36) g/dL RDW Std Deviation (36.4-46.3) fL RDW Coeff of Adrien (11.5-14.5) % Plt Count (130-400) K/uL MPV (7.4-10.4) fL Immature Gran % (Auto) % Neut % (Auto) % Lymph % (Auto) % [place] % (Auto) % Eos % (Auto) % Baso % (Auto) % Neut # (Auto) (1.4-6.5) K/uL Lymph # (Auto) (1.2-3.4) K/uL [place] # (Auto) (0.11-0.59) K/uL Eos # (Auto) (0-0.5) K/uL Baso # (Auto) (0-0.2) K/uL Immature Gran # (Auto) (0.00-0.02) K/uL PT (9.0-12.0) Seconds INR (0.9-1.1) APTT (21.0-31.0) Seconds PTT Ratio Sodium (136-145) mmol/L Potassium (3.5-5.1) mmol/L Chloride (98-107) mmol/L Carbon Dioxide (21-32) mmol/L Anion Gap (3-11) BUN (7-18) mg/dl Creatinine (0.6-1.4) mg/dl Est Cr Clr Drug Dosing ml/min Est GFR ( Amer) Est GFR (Non-Af Amer) BUN/Creatinine Ratio (10-20) Glucose (70-99) mg/dl Estimat Average Glucose mg/dl Hemoglobin A1c (4.5-5.6) % Calcium (8.5-10.1) mg/dl Magnesium (1.8-2.4) mg/dl Total Bilirubin (0.2-1) mg/dl AST (15-37) U/L ALT (12-78) U/L Alkaline Phosphatase (45-117) U/L Troponin I (0-0.045) ng/ml Total Protein (6.4-8.2) gm/dl Albumin (3.4-5.0) gm/dl Globulin (2.5-4.0) gm/dl Albumin/Globulin Ratio (0.9-2) Urine Color Urine Appearance (Clear) Urine pH (4.5-7.5) Ur Specific [place] (1.000-1.030) Urine Protein (Negative) Urine Glucose (UA) (Negative) Urine Ketones (Negative) Urine Blood (Negative) Urine Nitrite (Negative) Urine Bilirubin (Negative) Urine Urobilinogen (Negative) Ur Leukocyte Esterase (Negative) Urine WBC (Auto) (0-5) /hpf Urine RBC (Auto) (0-4) /hpf U Hyaline Cast (Auto) (0-5) /lpf U Epithel Cells (Auto) (0-5) /lpf Urine Bacteria (Auto) (Negative) COVID-19 Eval Order SARS-CoV-2, RNA, NAAT POSITIVE A* (NEGATIVE) Administered Medications Aripiprazole (Aripiprazole 10 Mg Tab) 10 mg PO DAILY [facility] Stop: 07/19/20 08:59 Last Admin: 06/19/20 08:54 Dose: 10 mg Documented by: [id number] Ascorbic Acid (Ascorbic Acid 500 Mg Tab) 500 mg PO DAILY [facility] Stop: 07/19/20 08:59 Last Admin: 06/19/20 08:57 Dose: 500 mg Documented by: [id number] Aspirin (Aspirin 81 Mg Ectab) 81 mg PO DAILY [facility] Stop: 07/19/20 08:59 Last Admin: 06/19/20 08:55 Dose: 81 mg Documented by: [id number] Atorvastatin Calcium (Atorvastatin 40 Mg Tab) 80 mg PO HS [facility] Stop: 07/18/20 20:59 Last Admin: 06/18/20 21:01 Dose: 80 mg Documented by: [id number] Clonazepam (Clonazepam 1 Mg Tab) 1 mg PO TID [facility] Stop: 07/18/20 20:59 Last Admin: 06/19/20 08:59 Dose: 1 mg Documented by: [id number] Admin: 06/18/20 21:02 Dose: 1 mg Documented by: [id number] Docusate Sodium (Docusate Sodium 100 Mg Cap) 100 mg PO BID [facility] Stop: 07/18/20 20:59 Last Admin: 06/19/20 08:55 Dose: 100 mg Documented by: [id number] Admin: 06/18/20 21:02 Dose: 100 mg Documented by: [id number] Duloxetine HCl (Duloxetine Hcl 60 Mg Cap) 60 mg PO BID [facility] Stop: 07/18/20 20:59 Last Admin: 06/19/20 08:55 Dose: 60 mg Documented by: [id number] Admin: 06/18/20 21:01 Dose: 60 mg Documented by: [id number] Famotidine (Famotidine 20 Mg Tab) 20 mg PO DAILY [facility] Stop: 07/19/20 08:59 Last Admin: 06/19/20 08:57 Dose: 20 mg Documented by: [id number] Folic Acid (Folic Acid 1 Mg Tab) 1 mg PO DAILY [facility] Stop: 07/19/20 08:59 Last Admin: 06/19/20 08:56 Dose: 1 mg Documented by: [id number] Levothyroxine Sodium (Levothyroxine Sodium 50 Mcg Tablet) 50 mcg PO DAILYBB [facility] Stop: 07/19/20 06:29 Last Admin: 06/19/20 06:23 Dose: 50 mcg Documented by: [id number] Melatonin (Melatonin 3 Mg Tab) 3 mg PO HSZ [facility] Stop: 07/18/20 21:59 Last Admin: 06/19/20 00:05 Dose: 3 mg Documented by: [id number] Metoprolol Succinate (Metoprolol Succ 25mg Ext Rel Tab) 25 mg PO DAILY [facility] Stop: 07/19/20 08:59 Last Admin: 06/19/20 08:57 Dose: Not Given Documented by: [id number] Pantoprazole Sodium (Pantoprazole 40 Mg Tab) 40 mg PO DAILYBB [facility] Stop: 07/19/20 06:29 Last Admin: 06/19/20 06:23 Dose: 40 mg Documented by: [id number] Polysaccharide Iron Complex (Iron Polysaccharide Complex 150 Mg Capsule) 150 mg PO BID [facility] Stop: 07/18/20 20:59 Last Admin: 06/19/20 08:58 Dose: 150 mg Documented by: [id number] Admin: 06/18/20 21:01 Dose: 150 mg Documented by: [id number] Ticagrelor (Ticagrelor 90 Mg Tab) 90 mg PO BID [facility] Stop: 07/18/20 20:59 Last Admin: 06/19/20 08:59 Dose: 90 mg Documented by: [id number] Admin: 06/18/20 21:01 Dose: 90 mg Documented by: [id number] Trazodone HCl (Trazodone Hcl 50 Mg Tab) 150 mg PO HS [facility] Stop: 07/18/20 20:59 Last Admin: 06/18/20 21:02 Dose: 150 mg Documented by: [id number] Umeclidinium [place] (Umeclidinium [place] 62.5mcg/Blister 7 Puffs/Inhaler) 1 puffs INH DAILY [facility] Stop: 07/19/20 08:59 Last Admin: 06/19/20 09:04 Dose: 1 puffs Documented by: [id number] Vitamin D (Cholecalciferol 1,000 Units 25 Mcg Tab) 2,000 units PO DAILY [facility] Stop: 07/19/20 08:59 Last Admin: 06/19/20 08:57 Dose: 2,000 units Documented by: [id number] Zinc Sulfate (Zinc Sulfate 220 Mg Capsule) 220 mg PO DAILY [facility] Stop: 07/19/20 08:59 Last Admin: 06/19/20 08:57 Dose: 220 mg Documented by: [id number] Discontinued Medications Furosemide (Furosemide 40 Mg/4 Ml Vial) 20 mg IV NOW STA Stop: 06/18/20 13:16 Last Admin: 06/18/20 13:49 Dose: 20 mg Documented by: [id number] Potassium Chloride (K Joe / Wtr) 10 meq in 100 mls @ 100 mls/hr IV Q1H [facility] Stop: 06/18/20 15:29 Last Admin: 06/18/20 13:49 Dose: Not Given Documented by: [id number] Potassium Chloride (K Joe / Wtr) 10 meq in 100 mls @ 100 mls/hr IV ONE ONE Stop: 06/18/20 14:45 Last Infusion: 06/18/20 15:05 Dose: 0 mls/hr Documented by: [id number] Admin: 06/18/20 13:51 Dose: 100 mls/hr Documented by: [id number] Potassium Chloride (Potassium Chloride Crtab 20 Meq Tabcr) 40 meq PO NOW STA Stop: 06/18/20 13:46 Last Admin: 06/18/20 14:16 Dose: 40 meq Documented by: [id number] Discharge Plan Visit Data Chief Complaint: Shortness of Breath/Dyspnea ED Provider: Rosa M Wright Discharge Problem: COVID-19, Coronary disease, Elevated troponin, Hypoxia, Low left ventricular ejection fraction Patient Disposition: Admitted As Inpatient Discharge Instructions Interventions: ED Discharge Assessment Last Done: 06/18/20 16:36 Discharge Problem: Coronary disease Qualifiers: Coronary Disease-Associated Artery/Lesion type: [place] artery [place] vs. transplanted heart: [place] heart Associated angina: with unspecified angina Qualified Code(s): I25.119 - Atherosclerotic heart disease of [place] coronary artery with unspecified angina pectoris
[2020-06-18] MEDS: TICAGRELOR 90 MG TAB PO SCH (21:01)
[2020-06-18] MEDS: ATORVASTATIN 40 MG TAB PO SCH (21:01)
[2020-06-18] MEDS: DULoxetine HCL 60 MG CAP PO SCH (21:01)
[2020-06-18] MEDS: IRON POLYSACCHARIDE COMPLEX 150 MG CAPSULE PO SCH (21:01)
[2020-06-18] MEDS: traZODone HCL 50 MG TAB PO SCH (21:02)
[2020-06-18] MEDS: DOCUSATE SODIUM 100 MG CAP PO SCH (21:02)
[2020-06-18] MEDS: clonazePAM 1 MG TAB PO SCH (21:02)
[2020-06-19] MEDS: MELATONIN 3 MG TAB PO SCH ×2 (00:05→21:02)
[2020-06-19 01:13] LABS: Troponin I 2.83 ng/ml (0-0.045)
[2020-06-19 04:45] LABS: Thyroid Stimulating Hormone 4.77 uIu/ml (0.300-4.500)
[2020-06-19 05:50] LABS: Estimated Average Glucose 117 mg/dl; Hemoglobin A1C 5.7 % (4.5-5.6)
[2020-06-19 05:55] LABS: T4 Free Thyroxine 2.25 ng/dl (0.8-1.6)
[2020-06-19] MEDS: LEVOTHYROXINE SODIUM 50 MCG TABLET PO SCH (06:23)
[2020-06-19] MEDS ORDERED: PANTOprazole 40 MG TAB PO SCH (06:30)
[2020-06-19] MEDS: ARIPiprazole 10 MG TAB PO SCH (08:54)
[2020-06-19] MEDS: DOCUSATE SODIUM 100 MG CAP PO SCH ×2 (08:55→21:02)
[2020-06-19] MEDS: DULoxetine HCL 60 MG CAP PO SCH ×2 (08:55→21:03)
[2020-06-19] MEDS: ASPIRIN 81 MG ECTAB PO SCH (08:55)
[2020-06-19] MEDS: FOLIC ACID 1 MG TAB PO SCH (08:56)
[2020-06-19] MEDS: ASCORBIC ACID 500 MG TAB PO SCH (08:57)
[2020-06-19] MEDS: FAMOTIDINE 20 MG TAB PO SCH (08:57)
[2020-06-19] MEDS: METOPROLOL SUCC 25MG EXT REL TAB PO SCH (08:57)
[2020-06-19] MEDS: ZINC SULFATE 220 MG CAPSULE PO SCH (08:57)
[2020-06-19] MEDS: CHOLECALCIFEROL 1,000 UNITS 25 MCG TAB PO SCH (08:57)
[2020-06-19] MEDS: IRON POLYSACCHARIDE COMPLEX 150 MG CAPSULE PO SCH ×2 (08:58→21:04)
[2020-06-19] MEDS: TICAGRELOR 90 MG TAB PO SCH ×2 (08:59→21:02)
[2020-06-19] MEDS: clonazePAM 1 MG TAB PO SCH (08:59)
[2020-06-19] MEDS: UMECLIDINIUM BROMIDE 62.5MCG/BLISTER 7 PUFFS/INHALER INH SCH (09:04)
[2020-06-19] MEDS ORDERED: REMDESIVIR 200 MG in SODIUM CHLORIDE 0.9% 210 ML IV ONE (09:30)
[2020-06-19 09:34] LABS: Hemoglobin 11.4 g/dL (14.0-18.0); Mean Corpuscular Hemoglobin 27.5 pg (25-34); Mean Corpuscular Hgb Conc 32.6 g/dL (32-36); Mean Corpuscular Volume 84.3 fL (80-100); Mean Platelet Volume 9.3 fL (7.4-10.4); Platelet Count 258 K/uL (130-400); RDW Coefficient of Variation 17.3 % (11.5-14.5); RDW Standard Deviation 53.6 fL (36.4-46.3); Red Blood Count 4.15 M/uL (4.7-6.1); White Blood Count 12.58 K/uL (4.8-10.8)
[2020-06-19 09:51] LABS: BUN Creatinine Ratio 15.6 (10-20); Calcium 8.4 mg/dl (8.5-10.1); Creatinine Clr Calc Pharmacy 63.5 ml/min; Est GFR (African American) 71.4; Est GFR (Non-African American) 61.6; Magnesium 1.8 mg/dl (1.8-2.4); Potassium 3.5 mmol/L (3.5-5.1)
[2020-06-19 09:52] LABS: Eosinophils # (auto) 0.02 K/uL (0-0.5); Eosinophils % (auto) 0.2 %; Immature Granulocytes # (auto) 0.04 K/uL (0.00-0.02); Immature Granulocytes % (auto) 0.3 %; Lymphocytes # (auto) 0.94 K/uL (1.2-3.4); Lymphocytes % (auto) 7.5 %; Monocytes # (auto) 0.95 K/uL (0.11-0.59); Monocytes % (auto) 7.6 %; Neutrophils # (auto) 10.63 K/uL (1.4-6.5); Neutrophils % (auto) 84.4 %
--- NOTE | 2020-06-19 09:54 | Electrocardiogram Report ---
Test Reason : Blood Pressure : / mmHG Vent. Rate : 084 BPM Atrial Rate : 084 BPM P-R Int : 158 ms QRS Dur : 092 ms QT Int : 372 ms P-R-T Axes : 068 119 -45 degrees QTc Int : 439 ms Poor data quality, interpretation may be adversely affected Normal sinus rhythm Anterolateral infarct (cited on or before 18-JUN-2020) Abnormal ECG When compared with ECG of 18-JUN-2020 11:12, QRS axis Shifted right Confirmed by Faraz Harvey ([id number]) on 06/19/2020 9:54:24 AM Referred By: REFERRED SELF Confirmed By:Douglas Harvey
[2020-06-19 09:59] LABS: Troponin I 2.31 ng/ml (0-0.045)
[2020-06-19] MEDS: DEXAMETHASONE SOD PHOSPHATE 6 MG in SYRINGE 0 ML IV SCH (10:00)
[2020-06-19] MEDS: FUROSEMIDE 20 MG TAB PO SCH (10:01)
--- NOTE | 2020-06-19 10:19 | Electrocardiogram Report ---
Test Reason : Blood Pressure : / mmHG Vent. Rate : 090 BPM Atrial Rate : 090 BPM P-R Int : 166 ms QRS Dur : 126 ms QT Int : 368 ms P-R-T Axes : 069 228 058 degrees QTc Int : 450 ms Normal sinus rhythm Right bundle branch block Anteroseptal infarct (cited on or before 18-JUN-2020) Abnormal ECG When compared with ECG of 18-JUN-2020 18:00, (unconfirmed) Right bundle branch block is now Present Confirmed by Faraz Harvey ([id number]) on 06/19/2020 10:18:50 AM Referred By: REFERRED SELF Confirmed By:Douglas Harvey
[2020-06-19] MEDS: SODIUM CHLORIDE 0.9% 10ML FLUSH IV SCH (12:08)
[2020-06-19] MEDS: ENOXAPARIN INJ 40 MG/0.4 ML SYR SQ SCH (12:08)
--- NOTE | 2020-06-19 12:41 | Cardiology Progress Note ---
Date of Service June 19, 2020 Assessment & Plan (1) Congestive heart failure due to cardiomyopathy: He likely affected some diuresis yesterday. Appears to have had a negative fluid balance overall. 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 Does not appear to have significant peripheral edema. He has both intrinsic lung disease with known COPD as well as what appears to be a viral pneumonia. He is at high risk for decompensated heart failure given his recent infarct and degree of LV dysfunction. At this point I would continue him on his oral Lasix monitoring his renal function and electrolytes closely. If his breathing deteriorates we may need to consider more aggressive diuresis. I would continue his metoprolol succinate. He does not appear to be in a good position for addition of other heart failure agents such as Pato inhibition or spironolactone. Will continue to monitor for ventricular arrhythmias. He will likely need to begin wearing his LifeVest again at the time of discharge. (2) Coronary disease: His records suggest LAD disease, but there is no mention of disease in any other distribution. He did undergo percutaneous intervention to the LAD a will need to be continued on dual anti-platelet therapy and high-dose atorvastatin. Switch from Plavix to Brilinta given his recent acute coronary syndrome. (3) Elevated troponin: He has elevated biomarkers. Slowly trending downward. I suspect were seeing the tail end of his recent infarct. Does have occasional symptoms of chest discomfort which are atypical and brief in duration. At this point I think it is reasonable simply to continue him on his dual anti-platelet therapy and high-dose atorvastatin. Admission and Anticipated Discharge Date Admission Date: June 18, 2020 Subjective This morning the patient did not report specific breathing difficulty. He did report being quite tired. He did report some pleuritic chest pain and occasional other chest pains in the left lower chest. He also reported dizziness at times Review of Systems Review of Systems: Per HPI Physical Exam Physical Exam: He was somnolent, and appeared debilitated. However, he was easily arousable and answers questions appropriately. HEENT: Pupils are equal and reactive to light and accommodation. Extraocular movements are intact. The sclerae are anicteric. Surgical scar midline scalp Neuro: Cranial nerves intact Lungs: Normal respiratory effort occasional episodes of tachypnea. Expiratory wheezing noted. Occasional crackles in both lung arreguin. Cardiac: Heart demonstrates a regular rate and rhythm. Normal S1 and S2. No murmurs on examination. Chest: No pain to palpation. Pulses: The patient has palpable radial pulses bilaterally that are equal in intensity but diminished. Extremities: There was no evidence of hypoperfusion. There is no cyanosis or clubbing. There is no edema. Skin: I did not appreciate any rashes on examination today. Multiple ecchymoses in both hands and arms. Results & Data ([facility]) Vital Signs (Past 12 Hours) Vital Signs Temp Pulse Resp BP Pulse Ox 06/19/20 11:01 36 C L 81 31 H 95/62 L 96 06/19/20 07:35 36.7 C 93 H 23 99/66 L 92 Laboratory Results Abnormal Lab Results 06/18/20 06/18/20 06/18/20 11:15 13:30 13:30 WBC RBC Hgb Hct MCV MCH MCHC RDW Std Deviation RDW Coeff of Adrien Plt Count MPV Immature Gran % (Auto) Neut % (Auto) Lymph % (Auto) [place] % (Auto) Eos % (Auto) Baso % (Auto) Neut # (Auto) Lymph # (Auto) [place] # (Auto) Eos # (Auto) Baso # (Auto) Immature Gran # (Auto) Sodium Potassium Chloride Carbon Dioxide Anion Gap BUN Creatinine Est Cr Clr Drug Dosing Est GFR ( Amer) Est GFR (Non-Af Amer) BUN/Creatinine Ratio Glucose Estimat Average Glucose 117 Hemoglobin A1c 5.7 H Calcium Magnesium Troponin I TSH Free T4 Urine Color Yellow Urine Appearance Clear Urine pH 6.0 Ur Specific [place] 1.014 Urine Protein Negative Urine Glucose (UA) Negative Urine Ketones Negative Urine Blood Trace H Urine Nitrite Negative Urine Bilirubin Negative Urine Urobilinogen Negative Ur Leukocyte Esterase Negative Urine WBC (Auto) 1-5 Urine RBC (Auto) 5-10 H U Hyaline Cast (Auto) 1-5 U Epithel Cells (Auto) 10-20 H Urine Bacteria (Auto) Negative COVID-19 Eval [facility] SARS-CoV-2, RNA, NAAT 06/18/20 06/19/20 06/19/20 13:30 00:19 09:04 WBC RBC Hgb Hct MCV MCH MCHC RDW Std Deviation RDW Coeff of Adrien Plt Count MPV Immature Gran % (Auto) Neut % (Auto) Lymph % (Auto) [place] % (Auto) Eos % (Auto) Baso % (Auto) Neut # (Auto) Lymph # (Auto) [place] # (Auto) Eos # (Auto) Baso # (Auto) Immature Gran # (Auto) Sodium 135 L Potassium 3.5 Chloride 99 Carbon Dioxide 30 Anion Gap 6.0 BUN 20 H Creatinine 1.26 Est Cr Clr Drug Dosing 63.5 Est GFR ( Amer) 71.4 Est GFR (Non-Af Amer) 61.6 BUN/Creatinine Ratio 15.6 Glucose 114 H Estimat Average Glucose Hemoglobin A1c Calcium 8.4 L Magnesium 1.8 Troponin I 2.830 H* 2.310 H* TSH 4.770 H Free T4 2.25 H Urine Color Urine Appearance Urine pH Ur Specific [place] Urine Protein Urine Glucose (UA) Urine Ketones Urine Blood Urine Nitrite Urine Bilirubin Urine Urobilinogen Ur Leukocyte Esterase Urine WBC (Auto) Urine RBC (Auto) U Hyaline Cast (Auto) U Epithel Cells (Auto) Urine Bacteria (Auto) COVID-19 Eval Order SARS-CoV-2, RNA, NAAT POSITIVE A* 06/19/20 09:04 WBC 12.58 H RBC 4.15 L Hgb 11.4 L Hct 35.0 L MCV 84.3 MCH 27.5 MCHC 32.6 RDW Std Deviation 53.6 H RDW Coeff of Adrien 17.3 H Plt Count 258 MPV 9.3 Immature Gran % (Auto) 0.3 Neut % (Auto) 84.4 Lymph % (Auto) 7.5 [place] % (Auto) 7.6 Eos % (Auto) 0.2 Baso % (Auto) 0.0 Neut # (Auto) 10.63 H Lymph # (Auto) 0.94 L [place] # (Auto) 0.95 H Eos # (Auto) 0.02 Baso # (Auto) 0.00 Immature Gran # (Auto) 0.04 H Sodium Potassium Chloride Carbon Dioxide Anion Gap BUN Creatinine Est Cr Clr Drug Dosing Est GFR ( Amer) Est GFR (Non-Af Amer) BUN/Creatinine Ratio Glucose Estimat Average Glucose Hemoglobin A1c Calcium Magnesium Troponin I TSH Free T4 Urine Color Urine Appearance Urine pH Ur Specific [place] Urine Protein Urine Glucose (UA) Urine Ketones Urine Blood Urine Nitrite Urine Bilirubin Urine Urobilinogen Ur Leukocyte Esterase Urine WBC (Auto) Urine RBC (Auto) U Hyaline Cast (Auto) U Epithel Cells (Auto) Urine Bacteria (Auto) COVID-19 Eval Order SARS-CoV-2, RNA, NAAT PG Care Time/CCT Total # of Minutes Spent Total Time Spent with Patient: Total time spent is greater than 50% in coordination of care (as documented) at patient's floor/unit and/or counseling patient: Coding Level of Care Code 74539 Subseq Hosp Care Lvl 2 Diagnoses Congestive heart failure due to cardiomyopathy I50.9; I42.9 Coronary disease I25.119 Coronary Disease-Associated Artery/Lesion type: [place] artery [place] vs. transplanted heart: [place] heart Associated angina: with unspecified angina Elevated troponin R77.8 (1) Coronary disease Coronary Disease-Associated Artery/Lesion type: [place] artery [place] vs. transplanted heart: [place] heart Associated angina: with unspecified angina Qualified Code(s): I25.119 - Atherosclerotic heart disease of [place] coronary artery with unspecified angina pectoris
[2020-06-19] MEDS ORDERED: PANTOPRAZOLE BOLUS/DRIP 1 EA IV STA (12:56)
[2020-06-19] MEDS ORDERED: PANTOprazole 80 MG in DEXTROSE 5% 100 ML IV ONE (12:56)
[2020-06-19] MEDS ORDERED: SODIUM CHLORIDE 0.9% 250 ML IV PRN (12:59)
--- NOTE | 2020-06-19 13:23 | Gastrointestinal Consultation ---
Date of Consultation June 19, 2020 Assessment & Plan (1) Black stool: This is a 60 y/o male with history of tobacco, ETOH use, recent history of STEMI s/p PCI 06/07/20 with ischemic cardiomyopathy with EF 16%, admitted with recurrent chest pain; COVID +, CHF/pneumonia. He's been started on Remdesevir and Decadron; satting at 90% on 3 LPM NC. GI consulted for GIB as pt had 2 bouts of liquid black stool today. HGB remains stable at 11; repeat BUN pending. He complains of intermittent abd pain but none now. No hematemesis. Vitals are stable; he is ill appearing, though abd soft; he has no active GIB on exam. Diff dx to consider including PUD (recent STEMI, previous ETOH/tobacco us), AVM, gastritis, small bowel or right-sided colonic source. - PPI gtt - NPO - Will obtain CTAP, given abd pain. If indicated, would start broad-spectrum ABX - EGD in the AM - Continue supportive care with IVF - Trend H&H, transfuse PRN - Monitor and document GI output - Appreciate cardiology, critical care/primary team mgmt of his co-morbids, COVID infection Thank you for allowing us to participate in the care of this patient. Please call with any acute changes, questions or concerns. Please see addendum below with additional recommendation from my supervising physician. Supervising Physician Co-Signing Physician Notes Late entry: Patient was seen and examined on 06/19 with Andre Reyes PA-C whose note reflects our findings and plan. History of Present Illness Reason for Consultation: GI Bleed Requesting Physician: Dr. Cook Attending Physician: Miguelina Cook MD History of Present Illness This is a 60 y/o male with h/o recent STEMI s/p PCI LAD 06/07/20 at [facility], with ischemic cardiomyopathy with LVEF 16%, on outpt ASA and Plavix daily. He was admitted yesterday with recurrent chest pain found to have COVID +, CHF/pneumonia on CXR, and had elevated troponin that has been trending down 3.4- >2.3, (unclear if this is tail end from his recent ACS or new bump), and is being managed by cardiology. Pt on Brilinta during this hospitalization given recent ACS. He's satting 90% on O2 3 LPM NC, BP remains stable at 96/77, p 85; has intermittent tachypnea. He's had intermittent chest discomfort since admission. Most recent EKG today with NSR, RBBB, anteroseptal infarct. He's been started on Remdesevir and Decadron. GI consulted for GI bleed as pt had 2 large black liquid stools today. On arrival yesterday HGB 11.4, crit 35%, BUN 20 (baseline), cr 1.26; today repeat HGB after black stool is 11.0; repeat BUN pending. He was started on PPI gtt. Pt states he has been having intermittent LLQ/periumbilical pain today; doesn't typically have abd pain, but has chronic daily heartburn despite PPI BID. Pt takes oral iron and his stool is always black, but typically solid, twice a day. States he was drinking 2 beers daily up until [place] when he quit. Quit smoking within the last 2 weeks. History of EGDs x 2 and 1 colonoscopy for abd pain- these were years ago at a hospital near [place], [place] - pt states nothing was found; results not available. Denies history of GIB. Denies nausea, vomiting, hematemesis, dysphagia, hematochezia, dysuria, hematuria, syncope. Tolerated some pudding earlier today. Allergies Allergy/AdvReac Type Severity Reaction Status Date / Time No Known Allergies Allergy Unverified 06/18/20 12:07 Home Medications Medication Instructions Recorded Confirmed Type acetaminophen [Tylenol] 650 mg PO QID PRN 06/18/20 06/18/20 History albuterol 90 mcg INHALATION Q4H PRN 06/18/20 06/18/20 History aripiprazole 10 mg PO DAILY 06/18/20 06/18/20 History ascorbic acid (vitamin C) [Vitamin 500 mg PO DAILY 06/18/20 06/18/20 History C] aspirin 81 mg PO DAILY 06/18/20 06/18/20 History atorvastatin 80 mg PO HS 06/18/20 06/18/20 History cholecalciferol (vitamin D3) 50 mcg PO DAILY 06/18/20 06/18/20 History [Vitamin D3] clonazepam 0 mg PO UD 06/18/20 06/18/20 History clopidogrel 75 mg PO DAILY 06/18/20 06/18/20 History docusate sodium 100 mg PO BID 06/18/20 06/18/20 History duloxetine 60 mg PO BID 06/18/20 06/18/20 History enoxaparin 40 mg SUBCUT DAILY 06/18/20 06/18/20 History famotidine 20 mg PO DAILY 06/18/20 06/18/20 History folic acid 1 mg PO DAILY 06/18/20 06/18/20 History furosemide 20 mg PO DAILY 06/18/20 06/18/20 History hydrocodone-acetaminophen 1 tab PO Q6H PRN 06/18/20 06/18/20 History levothyroxine 50 mcg PO DAILY 06/18/20 06/18/20 History melatonin 3 mg PO HS 06/18/20 06/18/20 History metoprolol succinate 0 mg PO DAILY 06/18/20 06/18/20 History pantoprazole 40 mg PO DAILYBB 06/18/20 06/18/20 History polysaccharide iron complex 150 mg PO BID 06/18/20 06/18/20 History [Ferrex 150] trazodone 150 mg PO HS 06/18/20 06/18/20 History umeclidinium [Incruse Ellipta] 1 inh INHALATION DAILY 06/18/20 06/18/20 History zinc sulfate 220 mg PO DAILY 06/18/20 06/18/20 History Patient History Medical History (Updated 06/29/20 @ 07:29 by Gallito Mcdonough DO) Congestive heart failure due to cardiomyopathy COPD (chronic obstructive pulmonary disease) Coronary disease HTN (hypertension) Hypothyroid Ischemic cardiomyopathy Reported ejection fraction of 16% Myocardial infarction Anterior. 06/07/2020. Treated with percutaneous intervention at [facility] Surgical History Hx of cardiac cath Family History Denies family history of Coronary heart disease Social History (Updated 06/19/20 @ 09:57 by Rosa M Wright MD) Smoking Status: Current every day smoker Tobacco Type: Cigarettes Cigarettes Per Day: 25; Second Hand Exposure: Yes; Hx Alcohol Use: Yes (Beer) Hx Substance Use: Yes Last Used Substance Other:: Cyndie Substance Use Type Other:: Marijuana Preferred Language: Salvadorean Communication Ability: Effective Beliefs That Will Affect Care: None Current Living Situation: Rehab Current Living Situation Comment: [facility] Feels Safe at Home: Yes Assistive Devices: Oxygen - Continuous Review of Systems Review of Systems: All systems reviewed & are unremarkable except as noted in HPI & below Physical Exam Constitutional: + ill appearing and + thin in moderate distress; resting with eyes closed but arouses to voice Eyes: + anicteric sclerae Respiratory: normal respiratory effort occasional bilateral crackles and wheezes; occasional labored breathing Cardiovascular: Rate/Rhythm: regular rate and regular rhythm Extremities: no pedal edema Gastrointestinal (Abdomen): Inspection/Auscultation: abdomen normal to inspection and normal bowel sounds; abdomen not distended Percussion/Palpation: abdomen soft; abdomen nontender and no guarding On gross exam he has no melena/hematochezia Skin: no rashes, warm and dry Psychiatric: A+Ox3, euthymic affect Results & Data ([facility]) Vital Signs (Past 12 Hours) Vital Signs Temp Pulse Resp BP Pulse Ox 06/19/20 12:46 85 43 H 96/77 L 90 06/19/20 11:01 36 C L 81 31 H 95/62 L 96 06/19/20 07:35 36.7 C 93 H 23 99/66 L 92 Laboratory Results 06/19/20 06/19/20 06/19/20 Range/Units 13:28 13:28 13:28 WBC 14.86 H (4.8-10.8) K/uL RBC 3.98 L (4.7-6.1) M/uL Hgb 11.0 L (14.0-18.0) g/dL Hct 33.6 L (42-52) % MCV 84.4 (80-100) fL MCH 27.6 (25-34) pg MCHC 32.7 (32-36) g/dL RDW Std Deviation 54.4 H (36.4-46.3) fL RDW Coeff of Adrien 17.4 H (11.5-14.5) % Plt Count 261 (130-400) K/uL MPV 9.8 (7.4-10.4) fL Immature Gran % (Auto) % Neut % (Auto) % Lymph % (Auto) % [place] % (Auto) % Eos % (Auto) % Baso % (Auto) % Neut # (Auto) (1.4-6.5) K/uL Lymph # (Auto) (1.2-3.4) K/uL [place] # (Auto) (0.11-0.59) K/uL Eos # (Auto) (0-0.5) K/uL Baso # (Auto) (0-0.2) K/uL Immature Gran # (Auto) (0.00-0.02) K/uL ABG pH 7.50 H (7.35-7.45) ABG pCO2 32 L (35-46) mmHg ABG pO2 67 L (80-95) mmHg ABG HCO3 24 (19-24) mmol/L ABG O2 Saturation 94.0 (90-95) % ABG Base Excess 1.4 (-9-1.8) mEq/L Reagan Test Pos (Pos) Barometric Pressure 735.8 mm/Hg Oxygen Given 3 Sodium (136-145) mmol/L Potassium (3.5-5.1) mmol/L Chloride (98-107) mmol/L Carbon Dioxide (21-32) mmol/L Anion Gap (3-11) BUN (7-18) mg/dl Creatinine (0.6-1.4) mg/dl Est Cr Clr Drug Dosing ml/min Est GFR ( Amer) Est GFR (Non-Af Amer) BUN/Creatinine Ratio (10-20) Glucose (70-99) mg/dl Estimat Average Glucose mg/dl Hemoglobin A1c (4.5-5.6) % Calcium (8.5-10.1) mg/dl Magnesium (1.8-2.4) mg/dl Troponin I (0-0.045) ng/ml TSH (0.300-4.500) uIu/ml Free T4 (0.8-1.6) ng/dl Blood Type Pending Antibody Screen Pending Crossmatch See Detail 06/19/20 06/19/20 06/19/20 Range/Units 09:04 09:04 00:19 WBC 12.58 H (4.8-10.8) K/uL RBC 4.15 L (4.7-6.1) M/uL Hgb 11.4 L (14.0-18.0) g/dL Hct 35.0 L (42-52) % MCV 84.3 (80-100) fL MCH 27.5 (25-34) pg MCHC 32.6 (32-36) g/dL RDW Std Deviation 53.6 H (36.4-46.3) fL RDW Coeff of Adrien 17.3 H (11.5-14.5) % Plt Count 258 (130-400) K/uL MPV 9.3 (7.4-10.4) fL Immature Gran % (Auto) 0.3 % Neut % (Auto) 84.4 % Lymph % (Auto) 7.5 % [place] % (Auto) 7.6 % Eos % (Auto) 0.2 % Baso % (Auto) 0.0 % Neut # (Auto) 10.63 H (1.4-6.5) K/uL Lymph # (Auto) 0.94 L (1.2-3.4) K/uL [place] # (Auto) 0.95 H (0.11-0.59) K/uL Eos # (Auto) 0.02 (0-0.5) K/uL Baso # (Auto) 0.00 (0-0.2) K/uL Immature Gran # (Auto) 0.04 H (0.00-0.02) K/uL ABG pH (7.35-7.45) ABG pCO2 (35-46) mmHg ABG pO2 (80-95) mmHg ABG HCO3 (19-24) mmol/L ABG O2 Saturation (90-95) % ABG Base Excess (-9-1.8) mEq/L Reagan Test (Pos) Barometric Pressure mm/Hg Oxygen Given Sodium 135 L (136-145) mmol/L Potassium 3.5 (3.5-5.1) mmol/L Chloride 99 (98-107) mmol/L Carbon Dioxide 30 (21-32) mmol/L Anion Gap 6.0 (3-11) BUN 20 H (7-18) mg/dl Creatinine 1.26 (0.6-1.4) mg/dl Est Cr Clr Drug Dosing 63.5 ml/min Est GFR ( Amer) 71.4 Est GFR (Non-Af Amer) 61.6 BUN/Creatinine Ratio 15.6 (10-20) Glucose 114 H (70-99) mg/dl Estimat Average Glucose mg/dl Hemoglobin A1c (4.5-5.6) % Calcium 8.4 L (8.5-10.1) mg/dl Magnesium 1.8 (1.8-2.4) mg/dl Troponin I 2.310 H* 2.830 H* (0-0.045) ng/ml TSH 4.770 H (0.300-4.500) uIu/ml Free T4 2.25 H (0.8-1.6) ng/dl Blood Type Antibody Screen Crossmatch 06/18/20 Range/Units 11:15 WBC (4.8-10.8) K/uL RBC (4.7-6.1) M/uL Hgb (14.0-18.0) g/dL Hct (42-52) % MCV (80-100) fL MCH (25-34) pg MCHC (32-36) g/dL RDW Std Deviation (36.4-46.3) fL RDW Coeff of Adrien (11.5-14.5) % Plt Count (130-400) K/uL MPV (7.4-10.4) fL Immature Gran % (Auto) % Neut % (Auto) % Lymph % (Auto) % [place] % (Auto) % Eos % (Auto) % Baso % (Auto) % Neut # (Auto) (1.4-6.5) K/uL Lymph # (Auto) (1.2-3.4) K/uL [place] # (Auto) (0.11-0.59) K/uL Eos # (Auto) (0-0.5) K/uL Baso # (Auto) (0-0.2) K/uL Immature Gran # (Auto) (0.00-0.02) K/uL ABG pH (7.35-7.45) ABG pCO2 (35-46) mmHg ABG pO2 (80-95) mmHg ABG HCO3 (19-24) mmol/L ABG O2 Saturation (90-95) % ABG Base Excess (-9-1.8) mEq/L Reagan Test (Pos) Barometric Pressure mm/Hg Oxygen Given Sodium (136-145) mmol/L Potassium (3.5-5.1) mmol/L Chloride (98-107) mmol/L Carbon Dioxide (21-32) mmol/L Anion Gap (3-11) BUN (7-18) mg/dl Creatinine (0.6-1.4) mg/dl Est Cr Clr Drug Dosing ml/min Est GFR ( Amer) Est GFR (Non-Af Amer) BUN/Creatinine Ratio (10-20) Glucose (70-99) mg/dl Estimat Average Glucose 117 mg/dl Hemoglobin A1c 5.7 H (4.5-5.6) % Calcium (8.5-10.1) mg/dl Magnesium (1.8-2.4) mg/dl Troponin I (0-0.045) ng/ml TSH (0.300-4.500) uIu/ml Free T4 (0.8-1.6) ng/dl Blood Type Antibody Screen Crossmatch Diagnostic Findings CXR: 1. Bilateral pulmonary airspace opacities, multifocal pneumonia versus pulmonary edema. Clinical and radiographic follow-up is recommended. 2. Suspected small bilateral subpulmonic pleural effusions
--- NOTE | 2020-06-19 13:33 | Hospitalist Progress Note ---
Date of Service June 19, 2020 Assessment & Plan (1) Chest pain: Patient presented with left-sided chest pain reminiscent of his previous angina before his STEMI 2 weeks ago Troponin is trending downward likely from previous STEMI No acute coronary syndrome here Chest pain is resolved (2) COVID-19: Unsure of onset of symptoms or diagnosis. Patient reports he tested negative prior to going to rehab, but here is positive and hypoxic with possible viral pneumonitis seen on chest x-ray - Patient was treated with ABX and steroids while at [facility] for COPD exacerbation and CAP -As he is hypoxic now, will start Decadron 6 mg IV once daily x10-day course -Start remdesivir x5-day course Hold off on convalescent plasma given pulmonary edema and EF of 15% (3) Lethargy: Secondary to Covid-19 most likely Also with GI bleeding as below possibly contributing Is also on clonazepam-PDMP website shows that he takes 1 mg 3 times daily, however discharge medication list from [facility] [place] states 0.5 mg p.o. 3 times daily He received 1 mg here this morning-we will hold off on further clonazepam for now given lethargy and watch for withdrawal symptoms Checked ABG-shows ABG seven-point on 3 L nasal cannula-consistent with hyperventilation from tachypnea with possible sepsis and GI bleeding (4) Hypoxia: As above, secondary to pulmonary edema and Covid-19 pneumonia Treating Covid-19 as above Received IV Lasix upon admission now we will continue Lasix p.o. once daily Follow I's and O's, daily weights Supplemental O2 to keep pulse ox greater than 90% as he likely has COPD given 50 years of smoking (5) Black stool: Patient had a large black bowel movement on the early afternoon of 06/19 He complains of left lower quadrant abdominal pain as well He has been in the hospital for recent admission for STEMI and is on dual antiplatelet therapy-high risk for stress ulcer but could be GI bleed from AVM -Hold Lovenox, but must continue dual antiplatelet therapy due to recent stent in the LAD -Start Protonix drip and hold home p.o. Protonix -Check CBC serially and transfuse if hemoglobin drops less than 8 or becomes hemodynamically unstable -Consult GI-plan for n.p.o. and EGD tomorrow -Check CT abdomen/pelvis given left lower quadrant abdominal pain -Check lactate with next blood draw (6) Pneumonia: Secondary to Covid-19 as above Starting IV Zosyn for diverticulitis as below which would also cover for healthcare associated pneumonia (7) Acute diverticulitis: CT abdomen/pelvis performed for acute GI bleeding and left lower quadrant pain With sigmoid diverticulitis seen, no bowel obstruction -Start IV Zosyn Follow CBC, CMP, lactate, procalcitonin (8) Coronary disease: Status post recent STEMI with LAD stent-remains chest pain-free since admission - Cardiology consulted- appreciate assistance, no current plans to go to [employer] - Continue DAPT - Continue BB as patient remains hemodynamically stable and no evidence of worsening failure - Continue high dose statin (9) Congestive heart failure due to cardiomyopathy: EF 16% per [facility] [place] reports. Likely ICM - Patient discharged on LifeVest - Continue lifeVest when dishcarged - Medication optimization as above - Mild evidence of congestion on chest x-ray and with hypoxia-was given IV Lasix -Continue Lasix p.o. daily -Appreciate cardiology consultation - Slowly introduce SUZANNE/ARB onto patient as blood pressure can tolerate Follow I's and O's Continue metoprolol (10) HTN (hypertension): Blood pressures chronically low likely secondary to severe systolic dysfunction Continue metoprolol, Lasix (11) Elevated troponin: 3 on admission and trending down to 2, likely trending downward from recent STEMI and not a new acute coronary syndrome (12) COPD (chronic obstructive pulmonary disease): As above Patient recently stopped smoking, smoked 1-5 cigarettes per day for 40 years. - Continue albuterol and Umeclidinium -On Decadron for hypoxia with Covid-19 pneumonia (13) Anxiety and depression: Continue current outpatient regime but holding clonazepam as above for lethargy Continue home Abilify, trazodone, duloxetine (14) Hypothyroid: TSH mildly elevated, free T4 also mildly elevated-unclear picture Continue home Synthroid dose for now Repeat TFTs in 2 weeks (15) GERD (gastroesophageal reflux disease): Convert home p.o. Protonix to IV Protonix drip as above for acute GI bleeding (16) DVT prophylaxis: Holding Lovenox for GI bleed Disposition-continued stay in PCU Full code as discussed with patient on 06/19 Admission and Anticipated Discharge Date Admission Date: June 18, 2020 Subjective Patient had a large "large coffee-ground stool" as per nursing around 12:45 PM. He was tachypneic and lethargic when I saw him but could answer my questions. He reported having some left lower quadrant abdominal pain, but no epigastric pain. Denies heartburn or indigestion. No further chest pain. He does feel short of breath and remains on oxygen. He is agreeable to blood transfusion if necessary-I verbally consented him but could not bring the paper consent into his room due to Covid restrictions. Because he was hypoxic, he was started on dexamethasone Remdesivir this morning. I discussed the case with GI as well as cardiology. Review of Systems Review of Systems: All systems reviewed & are unremarkable except as noted in HPI & below Physical Exam Constitutional: + ill appearing, cooperative and + lethargic; no acute distress Eyes: + anicteric sclerae ENMT: Mouth: + lip abnormality (Bleeding upper lip that is cracked) and + oral mucosal abnormality (Seems dry) Neck: trachea midline, no thyromegaly Respiratory: + tachypneic; does not use accessory muscles Auscultation: + crackles (Bilateral) and + wheezes; no rhonchi Cardiovascular: RRR, no murmur, no edema Chest (Breasts): Chest: normal inspection of chest Gastrointestinal (Abdomen): Inspection/Auscultation: normal bowel sounds Percussion/Palpation: + abdomen tender (in left lower quadrant without guarding or rebound) and abdomen soft; no guarding Musculoskeletal: Extremities: extremities normal to inspection; no cyanosis and no clubbing Skin: no rashes, warm and dry Neurologic: moves all extremities and awake; no focal motor deficits Psychiatric: Orientation: alert and oriented x 3 Affect: + flat affect Lymphatic: no lymphedema Results & Data Results & Data ([facility]) Vital Signs (Past 12 Hours) Vital Signs Temp Pulse Resp BP Pulse Ox 06/19/20 12:46 85 43 H 96/77 L 90 06/19/20 11:01 36 C L 81 31 H 95/62 L 96 06/19/20 07:35 36.7 C 93 H 23 99/66 L 92 Laboratory Results 06/19/20 06/19/20 06/19/20 Range/Units 18:12 14:35 14:34 WBC 11.48 H (4.8-10.8) K/uL RBC 3.89 L (4.7-6.1) M/uL Hgb 11.1 L (14.0-18.0) g/dL Hct 32.5 L (42-52) % MCV 83.5 (80-100) fL MCH 28.5 (25-34) pg MCHC 34.2 (32-36) g/dL RDW Std Deviation 53.2 H (36.4-46.3) fL RDW Coeff of Adrien 17.3 H (11.5-14.5) % Plt Count 269 (130-400) K/uL MPV 9.4 (7.4-10.4) fL Immature Gran % (Auto) % Neut % (Auto) % Lymph % (Auto) % [place] % (Auto) % Eos % (Auto) % Baso % (Auto) % Neut # (Auto) (1.4-6.5) K/uL Lymph # (Auto) (1.2-3.4) K/uL [place] # (Auto) (0.11-0.59) K/uL Eos # (Auto) (0-0.5) K/uL Baso # (Auto) (0-0.2) K/uL Immature Gran # (Auto) (0.00-0.02) K/uL ABG pH (7.35-7.45) ABG pCO2 (35-46) mmHg ABG pO2 (80-95) mmHg ABG HCO3 (19-24) mmol/L ABG O2 Saturation (90-95) % ABG Base Excess (-9-1.8) mEq/L Reagan Test (Pos) Barometric Pressure mm/Hg Oxygen Given Sodium (136-145) mmol/L Potassium (3.5-5.1) mmol/L Chloride (98-107) mmol/L Carbon Dioxide (21-32) mmol/L Anion Gap (3-11) BUN 20 H (7-18) mg/dl Creatinine (0.6-1.4) mg/dl Est Cr Clr Drug Dosing ml/min Est GFR ( Amer) Est GFR (Non-Af Amer) BUN/Creatinine Ratio (10-20) Glucose (70-99) mg/dl Estimat Average Glucose mg/dl Hemoglobin A1c (4.5-5.6) % Calcium (8.5-10.1) mg/dl Magnesium (1.8-2.4) mg/dl Troponin I (0-0.045) ng/ml TSH (0.300-4.500) uIu/ml Free T4 (0.8-1.6) ng/dl Blood Type Blood Type Recheck O Positive Antibody Screen Crossmatch 06/19/20 06/19/20 06/19/20 Range/Units 13:28 13:28 13:28 WBC 14.86 H (4.8-10.8) K/uL RBC 3.98 L (4.7-6.1) M/uL Hgb 11.0 L (14.0-18.0) g/dL Hct 33.6 L (42-52) % MCV 84.4 (80-100) fL MCH 27.6 (25-34) pg MCHC 32.7 (32-36) g/dL RDW Std Deviation 54.4 H (36.4-46.3) fL RDW Coeff of Adrien 17.4 H (11.5-14.5) % Plt Count 261 (130-400) K/uL MPV 9.8 (7.4-10.4) fL Immature Gran % (Auto) % Neut % (Auto) % Lymph % (Auto) % [place] % (Auto) % Eos % (Auto) % Baso % (Auto) % Neut # (Auto) (1.4-6.5) K/uL Lymph # (Auto) (1.2-3.4) K/uL [place] # (Auto) (0.11-0.59) K/uL Eos # (Auto) (0-0.5) K/uL Baso # (Auto) (0-0.2) K/uL Immature Gran # (Auto) (0.00-0.02) K/uL ABG pH 7.50 H (7.35-7.45) ABG pCO2 32 L (35-46) mmHg ABG pO2 67 L (80-95) mmHg ABG HCO3 24 (19-24) mmol/L ABG O2 Saturation 94.0 (90-95) % ABG Base Excess 1.4 (-9-1.8) mEq/L Reagan Test Pos (Pos) Barometric Pressure 735.8 mm/Hg Oxygen Given 3 Sodium (136-145) mmol/L Potassium (3.5-5.1) mmol/L Chloride (98-107) mmol/L Carbon Dioxide (21-32) mmol/L Anion Gap (3-11) BUN (7-18) mg/dl Creatinine (0.6-1.4) mg/dl Est Cr Clr Drug Dosing ml/min Est GFR ( Amer) Est GFR (Non-Af Amer) BUN/Creatinine Ratio (10-20) Glucose (70-99) mg/dl Estimat Average Glucose mg/dl Hemoglobin A1c (4.5-5.6) % Calcium (8.5-10.1) mg/dl Magnesium (1.8-2.4) mg/dl Troponin I (0-0.045) ng/ml TSH (0.300-4.500) uIu/ml Free T4 (0.8-1.6) ng/dl Blood Type O Positive Blood Type Recheck Antibody Screen NEGATIVE Crossmatch See Detail 06/19/20 06/19/20 06/19/20 Range/Units 09:04 09:04 00:19 WBC 12.58 H (4.8-10.8) K/uL RBC 4.15 L (4.7-6.1) M/uL Hgb 11.4 L (14.0-18.0) g/dL Hct 35.0 L (42-52) % MCV 84.3 (80-100) fL MCH 27.5 (25-34) pg MCHC 32.6 (32-36) g/dL RDW Std Deviation 53.6 H (36.4-46.3) fL RDW Coeff of Adrien 17.3 H (11.5-14.5) % Plt Count 258 (130-400) K/uL MPV 9.3 (7.4-10.4) fL Immature Gran % (Auto) 0.3 % Neut % (Auto) 84.4 % Lymph % (Auto) 7.5 % [place] % (Auto) 7.6 % Eos % (Auto) 0.2 % Baso % (Auto) 0.0 % Neut # (Auto) 10.63 H (1.4-6.5) K/uL Lymph # (Auto) 0.94 L (1.2-3.4) K/uL [place] # (Auto) 0.95 H (0.11-0.59) K/uL Eos # (Auto) 0.02 (0-0.5) K/uL Baso # (Auto) 0.00 (0-0.2) K/uL Immature Gran # (Auto) 0.04 H (0.00-0.02) K/uL ABG pH (7.35-7.45) ABG pCO2 (35-46) mmHg ABG pO2 (80-95) mmHg ABG HCO3 (19-24) mmol/L ABG O2 Saturation (90-95) % ABG Base Excess (-9-1.8) mEq/L Reagan Test (Pos) Barometric Pressure mm/Hg Oxygen Given Sodium 135 L (136-145) mmol/L Potassium 3.5 (3.5-5.1) mmol/L Chloride 99 (98-107) mmol/L Carbon Dioxide 30 (21-32) mmol/L Anion Gap 6.0 (3-11) BUN 20 H (7-18) mg/dl Creatinine 1.26 (0.6-1.4) mg/dl Est Cr Clr Drug Dosing 63.5 ml/min Est GFR ( Amer) 71.4 Est GFR (Non-Af Amer) 61.6 BUN/Creatinine Ratio 15.6 (10-20) Glucose 114 H (70-99) mg/dl Estimat Average Glucose mg/dl Hemoglobin A1c (4.5-5.6) % Calcium 8.4 L (8.5-10.1) mg/dl Magnesium 1.8 (1.8-2.4) mg/dl Troponin I 2.310 H* 2.830 H* (0-0.045) ng/ml TSH 4.770 H (0.300-4.500) uIu/ml Free T4 2.25 H (0.8-1.6) ng/dl Blood Type Blood Type Recheck Antibody Screen Crossmatch 06/18/20 Range/Units 11:15 WBC (4.8-10.8) K/uL RBC (4.7-6.1) M/uL Hgb (14.0-18.0) g/dL Hct (42-52) % MCV (80-100) fL MCH (25-34) pg MCHC (32-36) g/dL RDW Std Deviation (36.4-46.3) fL RDW Coeff of Adrien (11.5-14.5) % Plt Count (130-400) K/uL MPV (7.4-10.4) fL Immature Gran % (Auto) % Neut % (Auto) % Lymph % (Auto) % [place] % (Auto) % Eos % (Auto) % Baso % (Auto) % Neut # (Auto) (1.4-6.5) K/uL Lymph # (Auto) (1.2-3.4) K/uL [place] # (Auto) (0.11-0.59) K/uL Eos # (Auto) (0-0.5) K/uL Baso # (Auto) (0-0.2) K/uL Immature Gran # (Auto) (0.00-0.02) K/uL ABG pH (7.35-7.45) ABG pCO2 (35-46) mmHg ABG pO2 (80-95) mmHg ABG HCO3 (19-24) mmol/L ABG O2 Saturation (90-95) % ABG Base Excess (-9-1.8) mEq/L Reagan Test (Pos) Barometric Pressure mm/Hg Oxygen Given Sodium (136-145) mmol/L Potassium (3.5-5.1) mmol/L Chloride (98-107) mmol/L Carbon Dioxide (21-32) mmol/L Anion Gap (3-11) BUN (7-18) mg/dl Creatinine (0.6-1.4) mg/dl Est Cr Clr Drug Dosing ml/min Est GFR ( Amer) Est GFR (Non-Af Amer) BUN/Creatinine Ratio (10-20) Glucose (70-99) mg/dl Estimat Average Glucose 117 mg/dl Hemoglobin A1c 5.7 H (4.5-5.6) % Calcium (8.5-10.1) mg/dl Magnesium (1.8-2.4) mg/dl Troponin I (0-0.045) ng/ml TSH (0.300-4.500) uIu/ml Free T4 (0.8-1.6) ng/dl Blood Type Blood Type Recheck Antibody Screen Crossmatch PG Care Time/CCT Total # of Minutes Spent Total Time Spent with Patient: Total time spent is greater than 50% in coordination of care (as documented) at patient's floor/unit and/or counseling patient: Coding Level of Care Code 47591 Subseq Hosp Care Lvl 3 Diagnoses Chest pain R07.9 COVID-19 U07.1 Lethargy R53.83 Hypoxia R09.02 Black stool K92.1 Pneumonia J18.9 Acute diverticulitis K57.92 Coronary disease I25.119 Associated angina: with unspecified angina Coronary Disease-Associated Artery/Lesion type: [place] artery [place] vs. transplanted heart: [place] heart Congestive heart failure due to cardiomyopathy I50.9; I42.9 HTN (hypertension) I10 Hypertension type: unspecified Elevated troponin R77.8 COPD (chronic obstructive pulmonary disease) J44.9 COPD type: emphysema Anxiety and depression F41.9; F32.9 Hypothyroid E03.9 Hypothyroidism type: unspecified GERD (gastroesophageal reflux disease) K21.9 DVT prophylaxis Z29.9 (1) Coronary disease Associated angina: with unspecified angina Coronary Disease-Associated Artery/Lesion type: [place] artery [place] vs. transplanted heart: [place] heart Qualified Code(s): I25.119 - Atherosclerotic heart disease of [place] coronary artery with unspecified angina pectoris (2) Hypothyroid Hypothyroidism type: unspecified Qualified Code(s): E03.9 - Hypothyroidism, unspecified (3) COPD (chronic obstructive pulmonary disease) COPD type: emphysema (4) HTN (hypertension) Hypertension type: unspecified Qualified Code(s): I10 - Essential (primary) hypertension
[2020-06-19 13:47] LABS: Base Excess ABG 1.4 mEq/L (-9-1.8); HCO3 ABG 24 mmol/L (19-24); PCO2 ABG 32 mmHg (35-46); PO2 ABG 67 mmHg (80-95)
[2020-06-19 13:48] LABS: Allen Test Pos (Pos)
[2020-06-19] MEDS ORDERED: clonazePAM 0.5 MG TAB PO SCH (14:00)
[2020-06-19 14:12] LABS: Hematocrit (blood only) 33.6 % (42-52); Mean Corpuscular Hemoglobin 27.6 pg (25-34); Mean Corpuscular Hgb Conc 32.7 g/dL (32-36); Mean Corpuscular Volume 84.4 fL (80-100); Mean Platelet Volume 9.8 fL (7.4-10.4); Platelet Count 261 K/uL (130-400); RDW Coefficient of Variation 17.4 % (11.5-14.5); RDW Standard Deviation 54.4 fL (36.4-46.3); Red Blood Count 3.98 M/uL (4.7-6.1); White Blood Count 14.86 K/uL (4.8-10.8)
[2020-06-19] MEDS: PANTOprazole 40 MG in DEXTROSE 5% 100 ML IV SCH ×2 (14:57→21:00)
[2020-06-19 18:30] LABS: Hematocrit (blood only) 32.5 % (42-52); Hemoglobin 11.1 g/dL (14.0-18.0); Mean Corpuscular Hemoglobin 28.5 pg (25-34); Mean Corpuscular Hgb Conc 34.2 g/dL (32-36); Mean Corpuscular Volume 83.5 fL (80-100); Mean Platelet Volume 9.4 fL (7.4-10.4); Platelet Count 269 K/uL (130-400); RDW Coefficient of Variation 17.3 % (11.5-14.5); RDW Standard Deviation 53.2 fL (36.4-46.3); Red Blood Count 3.89 M/uL (4.7-6.1); White Blood Count 11.48 K/uL (4.8-10.8)
[2020-06-19] MEDS ORDERED: IOVERSOL 100ml IV ONE (18:37)
--- NOTE | 2020-06-19 18:46 | CT Scan Report ---
CT abd pelvis oral and IV con CLINICAL HISTORY: Abdominal pain. Gastrointestinal hemorrhage. COMPARISON STUDY: None. TECHNIQUE: The patient was scanned following administration of dilute oral contrast, and in a dynamic helical fashion during intravenous administration of 95 cc of Optiray 320 A dose lowering technique was utilized adhering to the principles of ALARA. CT DOSE: 322.37 mGy.cm FINDINGS: Lower chest: There is extensive artifact from metallic chest wall devices. There are groundglass pulm onary opacities suspicious for multifocal pneumonia. There are bilateral pleural effusions. Liver: The contrast-enhanced liver is normal in size, contour, and attenuation. There is no intrahepa tic biliary ductal dilatation. The hepatic veins and portal veins are patent. Gallbladder: Surgically absent Spleen: Normal in size and attenuation. Pancreas: Unremarkable. Adrenal glands: Unremarkable. Kidneys: There is symmetric renal cortical enhancement. The kidneys are normal in size without hydron ephrosis. Bowel: There are no transition zones indicate bowel obstruction. By history the appendix is surgicall y absent. There is colonic diverticulosis. There is mild sigmoid wall thickening, likely secondary to peridiverticular muscular hypertrophy. There are very sigmoid peridiverticular inflammatory changes. Peritoneum: There is no intraperitoneal free air or abdominal ascites. Vasculature: The abdominal aorta is normal in course and caliber. Adenopathy: None. Pelvic viscera: The bladder, and pelvic viscera are unremarkable. Skeletal structures: No destructive osseous lesions are seen. IMPRESSION: 1. No evidence of bowel obstruction. No evidence of free air 2. Sigmoid diverticulosis. Very minimal sigmoid diverticulitis is suspected 3. Bilateral pleural effusions 4. Groundglass pulmonary opacities consistent with a multifocal pneumonia ACT 112: Negative or not required by law. Electronically signed by: Easton Bazan M.D. 06/19/2020 6:45 PM
[2020-06-19] MEDS ORDERED: PIPERACILL/TAZOBAC CONSULT ACTIVE PRN (20:14)
[2020-06-19] MEDS ORDERED: PIPERACILLIN/TAZOBACTAM 3.375 GM in DEXTROSE 5% 100 ML IV ONE (20:30)
[2020-06-19] MEDS: traZODone HCL 50 MG TAB PO SCH (21:02)
[2020-06-19] MEDS: ATORVASTATIN 40 MG TAB PO SCH (21:04)
[2020-06-19 22:33] LABS: Hemoglobin 10.1 g/dL (14.0-18.0); Mean Corpuscular Hgb Conc 33.7 g/dL (32-36); Mean Corpuscular Volume 83.1 fL (80-100); Mean Platelet Volume 9.4 fL (7.4-10.4); Platelet Count 234 K/uL (130-400); RDW Coefficient of Variation 17.1 % (11.5-14.5); RDW Standard Deviation 52.2 fL (36.4-46.3); Red Blood Count 3.61 M/uL (4.7-6.1)
[2020-06-20] MEDS: PANTOprazole 40 MG in DEXTROSE 5% 100 ML IV SCH ×5 (00:20→19:47)
[2020-06-20] MEDS: PIPERACILLIN/TAZOBACTAM 3.375 GM in DEXTROSE 5% 100 ML IV SCH ×3 (00:26→18:01)
[2020-06-20] MEDS: LEVOTHYROXINE SODIUM 50 MCG TABLET PO SCH (05:31)
[2020-06-20 06:39] LABS: Hematocrit (blood only) 30.8 % (42-52); Hemoglobin 10.3 g/dL (14.0-18.0); Immature Granulocytes # (auto) 0.05 K/uL (0.00-0.02); Immature Granulocytes % (auto) 0.4 %; Lymphocytes # (auto) 0.65 K/uL (1.2-3.4); Lymphocytes % (auto) 5.3 %; Mean Corpuscular Hemoglobin 27.8 pg (25-34); Mean Corpuscular Hgb Conc 33.4 g/dL (32-36); Mean Corpuscular Volume 83.2 fL (80-100); Mean Platelet Volume 9.6 fL (7.4-10.4); Monocytes # (auto) 1.26 K/uL (0.11-0.59); Monocytes % (auto) 10.4 %; Neutrophils # (auto) 10.21 K/uL (1.4-6.5); Neutrophils % (auto) 83.9 %; Platelet Count 258 K/uL (130-400); RDW Coefficient of Variation 17.2 % (11.5-14.5); RDW Standard Deviation 52.6 fL (36.4-46.3); White Blood Count 12.17 K/uL (4.8-10.8)
[2020-06-20 07:15] LABS: Albumin Level 1.7 gm/dl (3.4-5.0); BUN Creatinine Ratio 19.5 (10-20); Calcium 8.3 mg/dl (8.5-10.1); Creatinine Clr Calc Pharmacy 75.8 ml/min; Est GFR (Non-African American) 75.1; Potassium 3.5 mmol/L (3.5-5.1)
[2020-06-20 07:18] LABS: Albumin Globulin Ratio 0.4 (0.9-2); Bilirubin,Total 0.8 mg/dl (0.2-1); Globulin 4.1 gm/dl (2.5-4.0); Phosphorus 4.1 mg/dl (2.5-4.9); Total Protein 5.9 gm/dl (6.4-8.2)
[2020-06-20] MEDS: UMECLIDINIUM BROMIDE 62.5MCG/BLISTER 7 PUFFS/INHALER INH SCH (09:20)
[2020-06-20] MEDS: DEXAMETHASONE SOD PHOSPHATE 6 MG in SYRINGE 0 ML IV SCH (09:21)
[2020-06-20] MEDS: CHOLECALCIFEROL 1,000 UNITS 25 MCG TAB PO SCH (10:17)
[2020-06-20] MEDS: ZINC SULFATE 220 MG CAPSULE PO SCH (10:17)
[2020-06-20] MEDS: ASPIRIN 81 MG ECTAB PO SCH (10:17)
[2020-06-20] MEDS: ARIPiprazole 10 MG TAB PO SCH (10:17)
[2020-06-20] MEDS: FOLIC ACID 1 MG TAB PO SCH (10:18)
[2020-06-20] MEDS: IRON POLYSACCHARIDE COMPLEX 150 MG CAPSULE PO SCH ×2 (10:18→21:08)
[2020-06-20] MEDS: FAMOTIDINE 20 MG TAB PO SCH (10:18)
[2020-06-20] MEDS: DOCUSATE SODIUM 100 MG CAP PO SCH ×2 (10:18→21:00)
[2020-06-20] MEDS: FUROSEMIDE 20 MG TAB PO SCH (10:18)
[2020-06-20] MEDS: DULoxetine HCL 60 MG CAP PO SCH ×2 (10:19→21:08)
[2020-06-20] MEDS: ASCORBIC ACID 500 MG TAB PO SCH (10:19)
[2020-06-20] MEDS: METOPROLOL SUCC 25MG EXT REL TAB PO SCH (10:21)
[2020-06-20] MEDS: TICAGRELOR 90 MG TAB PO SCH ×2 (10:24→21:07)
[2020-06-20] MEDS: REMDESIVIR 100 MG in SODIUM CHLORIDE 0.9% 230 ML IV SCH (11:24)
--- NOTE | 2020-06-20 12:05 | Gastroenterology Progress Note ---
Date of Service June 20, 2020 Assessment & Plan (1) Black stool: This is a 60 y/o male with recent history of STEMI s/p PCI 06/07/20 with ischemic cardiomyopathy, EF 16%, admit with recurrent chest pain; COVID +, CHF/pneumonia, on Remdesevir and Decadron and O2 via NC. GI consulted for GIB yesterday as pt had 2 bouts of liquid black stool yesterday and 1 today. HGB dipped slightly to 10.3 without rise in BUN. He was having some abd discomfort and CT yesterday noted very mild sigmoid diverticulitis; he was started on Zosyn. No hematemesis. He is on Brilinta given recent ACS. Concern with black stool would be PUD (recent STEMI, previous ETOH/tobacco us), AVM, gastritis, small bowel or right-sided colonic source; of note, pt has chronic black stools on oral iron. Pt satting in the mid 90's on 3 LPM NC. - Initial plan was for EGD today, though after speaking with care team including anesthesia, his underlying cardiac and respiratory status is of concern. Perhaps the best approach would be to continue PPI gtt x 72 hours, monitor GI output, trend H&H, transfuse PRN. Continue ABX per primary service. - Appreciate cardiology, critical care/primary team mgmt of his co-morbids, COVID infection Thank you for allowing us to participate in the care of this patient. Please call with any acute changes, questions or concerns. Please see addendum below with additional recommendation from my supervising physician. Admission and Anticipated Discharge Date Admission Date: June 18, 2020 Supervising Physician Co-Signing Physician Notes I saw and evaluated the patient this morning. We were consulted with regard to question of melena. Overnight the patient has had no recurrence of dark sticky stools. His blood count has also remained stable over the last 24 hours. Patient was recently found to have evidence of a Covid associated pneumonia, congestive heart failure and is requiring continuous oxygen supplementation to maintain his oxygen saturations. I did have a discussion with her anesthesia service and they were concerned about doing an upper endoscopy on this patient given his poor respiratory and c ardiac status. As the patient does not appear to be actively bleeding today I would recommend that we hold on endoscopic evaluation for the present time. Recommendations Patient may have a liquid diet Continue Protonix drip for a total of 72 hours Carafate slurry 4 times daily Continue to monitor hemoglobin and hematocrit Please and avoid use of nonsteroidals if possible If patient develops symptoms or signs suggestive of active bleeding then endoscopic intervention could be reconsidered Subjective Overnight pt had CTAP noting mild acute sigmoid diverticulitis, groundglass pulmonary opacities consistent with a multifocal pneumonia lactate was WNL, and pt was started on Zosyn. He had 1 black coffee ground stool this AM. HGB stable at 10.3, crit 30%, WBC 12k, and VS stable with slight hypotension with BP's running in high 90's systolic. O2 sat 95% on 3 LPM. Physical Exam Constitutional: + ill appearing and + thin Eyes: + anicteric sclerae Respiratory: normal respiratory effort Cardiovascular: Rate/Rhythm: regular rate and regular rhythm Extremities: no pedal edema Gastrointestinal (Abdomen): Inspection/Auscultation: abdomen normal to inspection and normal bowel sounds; abdomen not distended Percussion/Palpation: abdomen soft; abdomen nontender and no guarding Skin: no rashes, warm and dry Psychiatric: A+Ox3, euthymic affect Results & Data ([facility]) Vital Signs (Past 12 Hours) Vital Signs Temp Pulse Resp BP Pulse Ox 06/20/20 11:20 36.5 C 83 19 98/74 L 95 06/20/20 07:59 81 25 H 99/61 L 96 06/20/20 03:09 36.8 C 74 21 94/62 L 95 Laboratory Results 06/20/20 06/20/20 06/20/20 Range/Units Unknown 05:21 05:21 WBC 12.17 H (4.8-10.8) K/uL RBC 3.70 L (4.7-6.1) M/uL Hgb 10.3 L (14.0-18.0) g/dL Hct 30.8 L (42-52) % MCV 83.2 (80-100) fL MCH 27.8 (25-34) pg MCHC 33.4 (32-36) g/dL RDW Std Deviation 52.6 H (36.4-46.3) fL RDW Coeff of Adrien 17.2 H (11.5-14.5) % Plt Count 258 (130-400) K/uL MPV 9.6 (7.4-10.4) fL Immature Gran % (Auto) 0.4 % Neut % (Auto) 83.9 % Lymph % (Auto) 5.3 % [place] % (Auto) 10.4 % Eos % (Auto) 0.0 % Baso % (Auto) 0.0 % Neut # (Auto) 10.21 H (1.4-6.5) K/uL Lymph # (Auto) 0.65 L (1.2-3.4) K/uL [place] # (Auto) 1.26 H (0.11-0.59) K/uL Eos # (Auto) 0.00 (0-0.5) K/uL Baso # (Auto) 0.00 (0-0.2) K/uL Immature Gran # (Auto) 0.05 H (0.00-0.02) K/uL ABG pH (7.35-7.45) ABG pCO2 (35-46) mmHg ABG pO2 (80-95) mmHg ABG HCO3 (19-24) mmol/L ABG O2 Saturation (90-95) % ABG Base Excess (-9-1.8) mEq/L Reagan Test (Pos) Barometric Pressure mm/Hg Oxygen Given Sodium 137 (136-145) mmol/L Potassium 3.5 (3.5-5.1) mmol/L Chloride 101 (98-107) mmol/L Carbon Dioxide 28 (21-32) mmol/L Anion Gap 8.0 (3-11) BUN 21 H (7-18) mg/dl Creatinine 1.07 (0.6-1.4) mg/dl Est Cr Clr Drug Dosing 75.8 ml/min Est GFR ( Amer) 87.0 Est GFR (Non-Af Amer) 75.1 BUN/Creatinine Ratio 19.5 (10-20) Glucose 116 H (70-99) mg/dl Lactate (0.4-2.0) mmol/L Calcium 8.3 L (8.5-10.1) mg/dl Phosphorus 4.1 (2.5-4.9) mg/dl Magnesium 2.0 (1.8-2.4) mg/dl Total Bilirubin 0.8 (0.2-1) mg/dl AST 96 H (15-37) U/L ALT 84 H (12-78) U/L Alkaline Phosphatase 53 (45-117) U/L Total Protein 5.9 L (6.4-8.2) gm/dl Albumin 1.7 L (3.4-5.0) gm/dl Globulin 4.1 H (2.5-4.0) gm/dl Albumin/Globulin Ratio 0.4 L (0.9-2) Procalcitonin (0-0.5) ng/ml Stool Occult Bld Scrn Negative (Negative) Blood Type Blood Type Recheck Antibody Screen Crossmatch 06/19/20 06/19/20 06/19/20 Range/Units 22:20 22:20 22:20 WBC 9.90 (4.8-10.8) K/uL RBC 3.61 L (4.7-6.1) M/uL Hgb 10.1 L (14.0-18.0) g/dL Hct 30.0 L (42-52) % MCV 83.1 (80-100) fL MCH 28.0 (25-34) pg MCHC 33.7 (32-36) g/dL RDW Std Deviation 52.2 H (36.4-46.3) fL RDW Coeff of Adrien 17.1 H (11.5-14.5) % Plt Count 234 (130-400) K/uL MPV 9.4 (7.4-10.4) fL Immature Gran % (Auto) % Neut % (Auto) % Lymph % (Auto) % [place] % (Auto) % Eos % (Auto) % Baso % (Auto) % Neut # (Auto) (1.4-6.5) K/uL Lymph # (Auto) (1.2-3.4) K/uL [place] # (Auto) (0.11-0.59) K/uL Eos # (Auto) (0-0.5) K/uL Baso # (Auto) (0-0.2) K/uL Immature Gran # (Auto) (0.00-0.02) K/uL ABG pH (7.35-7.45) ABG pCO2 (35-46) mmHg ABG pO2 (80-95) mmHg ABG HCO3 (19-24) mmol/L ABG O2 Saturation (90-95) % ABG Base Excess (-9-1.8) mEq/L Reagan Test (Pos) Barometric Pressure mm/Hg Oxygen Given Sodium (136-145) mmol/L Potassium (3.5-5.1) mmol/L Chloride (98-107) mmol/L Carbon Dioxide (21-32) mmol/L Anion Gap (3-11) BUN (7-18) mg/dl Creatinine (0.6-1.4) mg/dl Est Cr Clr Drug Dosing ml/min Est GFR ( Amer) Est GFR (Non-Af Amer) BUN/Creatinine Ratio (10-20) Glucose (70-99) mg/dl Lactate 1.3 (0.4-2.0) mmol/L Calcium (8.5-10.1) mg/dl Phosphorus (2.5-4.9) mg/dl Magnesium (1.8-2.4) mg/dl Total Bilirubin (0.2-1) mg/dl AST (15-37) U/L ALT (12-78) U/L Alkaline Phosphatase (45-117) U/L Total Protein (6.4-8.2) gm/dl Albumin (3.4-5.0) gm/dl Globulin (2.5-4.0) gm/dl Albumin/Globulin Ratio (0.9-2) Procalcitonin 0.27 (0-0.5) ng/ml Stool Occult Bld Scrn (Negative) Blood Type Blood Type Recheck Antibody Screen Crossmatch 06/19/20 06/19/20 06/19/20 Range/Units 18:12 14:35 14:34 WBC 11.48 H (4.8-10.8) K/uL RBC 3.89 L (4.7-6.1) M/uL Hgb 11.1 L (14.0-18.0) g/dL Hct 32.5 L (42-52) % MCV 83.5 (80-100) fL MCH 28.5 (25-34) pg MCHC 34.2 (32-36) g/dL RDW Std Deviation 53.2 H (36.4-46.3) fL RDW Coeff of [place] 17.3 H (11.5-14.5) % Plt Count 269 (130-400) K/uL MPV 9.4 (7.4-10.4) fL Immature Gran % (Auto) % Neut % (Auto) % Lymph % (Auto) % [place] % (Auto) % Eos % (Auto) % Baso % (Auto) % Neut # (Auto) (1.4-6.5) K/uL Lymph # (Auto) (1.2-3.4) K/uL [place] # (Auto) (0.11-0.59) K/uL Eos # (Auto) (0-0.5) K/uL Baso # (Auto) (0-0.2) K/uL Immature Gran # (Auto) (0.00-0.02) K/uL ABG pH (7.35-7.45) ABG pCO2 (35-46) mmHg ABG pO2 (80-95) mmHg ABG HCO3 (19-24) mmol/L ABG O2 Saturation (90-95) % ABG Base Excess (-9-1.8) mEq/L Reagan Test (Pos) Barometric Pressure mm/Hg Oxygen Given Sodium (136-145) mmol/L Potassium (3.5-5.1) mmol/L Chloride (98-107) mmol/L Carbon Dioxide (21-32) mmol/L Anion Gap (3-11) BUN 20 H (7-18) mg/dl Creatinine (0.6-1.4) mg/dl Est Cr Clr Drug Dosing ml/min Est GFR ( Amer) Est GFR (Non-Af Amer) BUN/Creatinine Ratio (10-20) Glucose (70-99) mg/dl Lactate (0.4-2.0) mmol/L Calcium (8.5-10.1) mg/dl Phosphorus (2.5-4.9) mg/dl Magnesium (1.8-2.4) mg/dl Total Bilirubin (0.2-1) mg/dl AST (15-37) U/L ALT (12-78) U/L Alkaline Phosphatase (45-117) U/L Total Protein (6.4-8.2) gm/dl Albumin (3.4-5.0) gm/dl Globulin (2.5-4.0) gm/dl Albumin/Globulin Ratio (0.9-2) Procalcitonin (0-0.5) ng/ml Stool Occult Bld Scrn (Negative) Blood Type Blood Type Recheck O Positive Antibody Screen Crossmatch 06/19/20 06/19/20 06/19/20 Range/Units 13:28 13:28 13:28 WBC 14.86 H (4.8-10.8) K/uL RBC 3.98 L (4.7-6.1) M/uL Hgb 11.0 L (14.0-18.0) g/dL Hct 33.6 L (42-52) % MCV 84.4 (80-100) fL MCH 27.6 (25-34) pg MCHC 32.7 (32-36) g/dL RDW Std Deviation 54.4 H (36.4-46.3) fL RDW Coeff of Adrien 17.4 H (11.5-14.5) % Plt Count 261 (130-400) K/uL MPV 9.8 (7.4-10.4) fL Immature Gran % (Auto) % Neut % (Auto) % Lymph % (Auto) % [place] % (Auto) % Eos % (Auto) % Baso % (Auto) % Neut # (Auto) (1.4-6.5) K/uL Lymph # (Auto) (1.2-3.4) K/uL [place] # (Auto) (0.11-0.59) K/uL Eos # (Auto) (0-0.5) K/uL Baso # (Auto) (0-0.2) K/uL Immature Gran # (Auto) (0.00-0.02) K/uL ABG pH 7.50 H (7.35-7.45) ABG pCO2 32 L (35-46) mmHg ABG pO2 67 L (80-95) mmHg ABG HCO3 24 (19-24) mmol/L ABG O2 Saturation 94.0 (90-95) % ABG Base Excess 1.4 (-9-1.8) mEq/L Reagan Test Pos (Pos) Barometric Pressure 735.8 mm/Hg Oxygen Given 3 Sodium (136-145) mmol/L Potassium (3.5-5.1) mmol/L Chloride (98-107) mmol/L Carbon Dioxide (21-32) mmol/L Anion Gap (3-11) BUN (7-18) mg/dl Creatinine (0.6-1.4) mg/dl Est Cr Clr Drug Dosing ml/min Est GFR ( Amer) Est GFR (Non-Af Amer) BUN/Creatinine Ratio (10-20) Glucose (70-99) mg/dl Lactate (0.4-2.0) mmol/L Calcium (8.5-10.1) mg/dl Phosphorus (2.5-4.9) mg/dl Magnesium (1.8-2.4) mg/dl Total Bilirubin (0.2-1) mg/dl AST (15-37) U/L ALT (12-78) U/L Alkaline Phosphatase (45-117) U/L Total Protein (6.4-8.2) gm/dl Albumin (3.4-5.0) gm/dl Globulin (2.5-4.0) gm/dl Albumin/Globulin Ratio (0.9-2) Procalcitonin (0-0.5) ng/ml Stool Occult Bld Scrn (Negative) Blood Type O Positive Blood Type Recheck Antibody Screen NEGATIVE Crossmatch See Detail Diagnostic Findings CTAP: Lower chest: There is extensive artifact from metallic chest wall devices. There are groundglass pulmonary opacities suspicious for multifocal pneumonia. There are bilateral pleural effusions. Liver: The contrast-enhanced liver is normal in size, contour, and attenuation. There is no intrahepatic biliary ductal dilatation. The hepatic veins and portal veins are patent. Gallbladder: Surgically absent Spleen: Normal in size and attenuation. Pancreas: Unremarkable. Adrenal glands: Unremarkable. Kidneys: There is symmetric renal cortical enhancement. The kidneys are normal in size without hydronephrosis. Bowel: There are no transition zones indicate bowel obstruction. By history the appendix is surgically absent. There is colonic diverticulosis. There is mild sigmoid wall thickening, likely secondary to peridiverticular muscular hypertrophy. There are very sigmoid peridiverticular inflammatory changes. Peritoneum: There is no intraperitoneal free air or abdominal ascites. Vasculature: The abdominal aorta is normal in course and caliber. Adenopathy: None. Pelvic viscera: The bladder, and pelvic viscera are unremarkable. Skeletal structures: No destructive osseous lesions are seen. IMPRESSION: 1. No evidence of bowel obstruction. No evidence of free air 2. Sigmoid diverticulosis. Very minimal sigmoid diverticulitis is suspected 3. Bilateral pleural effusions 4. Groundglass pulmonary opacities consistent with a multifocal pneumonia
[2020-06-20] MEDS ORDERED: POTASSIUM CHLORIDE CRTAB 20 MEQ TABCR PO STA (12:42)
[2020-06-20] MEDS ORDERED: FUROSEMIDE 20 MG in SYRINGE 0 ML IV STA (12:42)
[2020-06-20] MEDS: SODIUM CHLORIDE 0.9% 10ML FLUSH IV SCH (12:57)
[2020-06-20] MEDS ORDERED: FUROSEMIDE 40 MG/4 ML VIAL IV ONE (12:59)
--- NOTE | 2020-06-20 14:05 | Cardiology Progress Note ---
Date of Service June 20, 2020 Assessment & Plan (1) Congestive heart failure due to cardiomyopathy: His volume status appears stable. While his lung examination is abnormal he is known to have an element of COPD and viral pneumonia. I do not think requires more aggressive diuresis currently. We will need to monitor his volume status closely. Continue metoprolol succinate. I do not think he is ready for any attempt to initiate Pato inhibition or aldosterone antagonism at this point. He does not need to wear the life vest while in the hospital. (2) Coronary disease: His records suggest LAD disease, but there is no mention of disease in any other distribution. He did undergo percutaneous intervention to the LAD a will need to be continued on dual anti-platelet therapy and high-dose atorvastatin. Currently on Brilinta and aspirin. Unfortunately, given the recent percutaneous intervention in the setting of an ACS, I would not stop his anti-platelet agents except an extreme circumstances. While there was some suspicion of a gastrointestinal hemorrhage, his hemoglobin is stable and he thinks his dark stools could be secondary to his prior iron supplementation. (3) Elevated troponin: Trending downward. Related to the tail end of his anterior infarct. Admission and Anticipated Discharge Date Admission Date: June 18, 2020 Subjective This afternoon the patient reported feeling somewhat tired but had no specific concerns. He states that his breathing is still not normal but fairly comfortable. He denied abdominal discomfort. He did report 1 additional bowel movement which was dark in color. He has not been out of bed much. Review of Systems Review of Systems: Per HPI Physical Exam Physical Exam: He was alert and conversive today. Much improved versus yesterday. He answered all questions appropriately. HEENT: Pupils are equal and reactive to light and accommodation. Extraocular movements are intact. The sclerae are anicteric. Surgical scar midline scalp Neuro: Cranial nerves intact Lungs: Normal respiratory effort and respiratory rate. Some decreased breath sounds in the left mid lung and occasional crackle in the right base. No expiratory wheezing. Cardiac: Heart demonstrates a regular rate and rhythm. Normal S1 and S2. No murmurs on examination. Chest: No pain to palpation. Pulses: The patient has palpable radial pulses bilaterally that are equal in intensity but diminished. Extremities: There was no evidence of hypoperfusion. There is no cyanosis or clubbing. There is no edema. Skin: I did not appreciate any rashes on examination today. Multiple ecchymoses in both hands and arms. Results & Data ([facility]) Vital Signs (Past 12 Hours) Vital Signs Temp Pulse Resp BP Pulse Ox 06/20/20 11:20 36.5 C 83 19 98/74 L 95 06/20/20 07:59 81 25 H 99/61 L 96 06/20/20 03:09 36.8 C 74 21 94/62 L 95 Laboratory Results Abnormal Lab Results 06/19/20 06/19/20 06/19/20 13:28 13:28 14:34 WBC 14.86 H RBC 3.98 L Hgb 11.0 L Hct 33.6 L MCV 84.4 MCH 27.6 MCHC 32.7 RDW Std Deviation 54.4 H RDW Coeff of Adrien 17.4 H Plt Count 261 MPV 9.8 Immature Gran % (Auto) Neut % (Auto) Lymph % (Auto) [place] % (Auto) Eos % (Auto) Baso % (Auto) Neut # (Auto) Lymph # (Auto) [place] # (Auto) Eos # (Auto) Baso # (Auto) Immature Gran # (Auto) Sodium Potassium Chloride Carbon Dioxide Anion Gap BUN 20 H Creatinine Est Cr Clr Drug Dosing Est GFR ( Amer) Est GFR (Non-Af Amer) BUN/Creatinine Ratio Glucose Lactate Calcium Phosphorus Magnesium Total Bilirubin AST ALT Alkaline Phosphatase Total Protein Albumin Globulin Albumin/Globulin Ratio Procalcitonin Stool Occult Bld Scrn Blood Type O Positive Blood Type Recheck Antibody Screen NEGATIVE 06/19/20 06/19/20 06/19/20 14:35 18:12 22:20 WBC 11.48 H RBC 3.89 L Hgb 11.1 L Hct 32.5 L MCV 83.5 MCH 28.5 MCHC 34.2 RDW Std Deviation 53.2 H RDW Coeff of Adrien 17.3 H Plt Count 269 MPV 9.4 Immature Gran % (Auto) Neut % (Auto) Lymph % (Auto) [place] % (Auto) Eos % (Auto) Baso % (Auto) Neut # (Auto) Lymph # (Auto) [place] # (Auto) Eos # (Auto) Baso # (Auto) Immature Gran # (Auto) Sodium Potassium Chloride Carbon Dioxide Anion Gap BUN Creatinine Est Cr Clr Drug Dosing Est GFR ( Amer) Est GFR (Non-Af Amer) BUN/Creatinine Ratio Glucose Lactate 1.3 Calcium Phosphorus Magnesium Total Bilirubin AST ALT Alkaline Phosphatase Total Protein Albumin Globulin Albumin/Globulin Ratio Procalcitonin Stool Occult Bld Scrn Blood Type Blood Type Recheck O Positive Antibody Screen 06/19/20 06/19/20 06/20/20 22:20 22:20 05:21 WBC 9.90 12.17 H RBC 3.61 L 3.70 L Hgb 10.1 L 10.3 L Hct 30.0 L 30.8 L MCV 83.1 83.2 MCH 28.0 27.8 MCHC 33.7 33.4 RDW Std Deviation 52.2 H 52.6 H RDW Coeff of Adrien 17.1 H 17.2 H Plt Count 234 258 MPV 9.4 9.6 Immature Gran % (Auto) 0.4 Neut % (Auto) 83.9 Lymph % (Auto) 5.3 [place] % (Auto) 10.4 Eos % (Auto) 0.0 Baso % (Auto) 0.0 Neut # (Auto) 10.21 H Lymph # (Auto) 0.65 L [place] # (Auto) 1.26 H Eos # (Auto) 0.00 Baso # (Auto) 0.00 Immature Gran # (Auto) 0.05 H Sodium Potassium Chloride Carbon Dioxide Anion Gap BUN Creatinine Est Cr Clr Drug Dosing Est GFR ( Amer) Est GFR (Non-Af Amer) BUN/Creatinine Ratio Glucose Lactate Calcium Phosphorus Magnesium Total Bilirubin AST ALT Alkaline Phosphatase Total Protein Albumin Globulin Albumin/Globulin Ratio Procalcitonin 0.27 Stool Occult Bld Scrn Blood Type Blood Type Recheck Antibody Screen 06/20/20 06/20/20 05:21 Unknown WBC RBC Hgb Hct MCV MCH MCHC RDW Std Deviation RDW Coeff of Adrien Plt Count MPV Immature Gran % (Auto) Neut % (Auto) Lymph % (Auto) [place] % (Auto) Eos % (Auto) Baso % (Auto) Neut # (Auto) Lymph # (Auto) [place] # (Auto) Eos # (Auto) Baso # (Auto) Immature Gran # (Auto) Sodium 137 Potassium 3.5 Chloride 101 Carbon Dioxide 28 Anion Gap 8.0 BUN 21 H Creatinine 1.07 Est Cr Clr Drug Dosing 75.8 Est GFR ( Amer) 87.0 Est GFR (Non-Af Amer) 75.1 BUN/Creatinine Ratio 19.5 Glucose 116 H Lactate Calcium 8.3 L Phosphorus 4.1 Magnesium 2.0 Total Bilirubin 0.8 AST 96 H ALT 84 H Alkaline Phosphatase 53 Total Protein 5.9 L Albumin 1.7 L Globulin 4.1 H Albumin/Globulin Ratio 0.4 L Procalcitonin Stool Occult Bld Scrn Negative Blood Type Blood Type Recheck Antibody Screen PG Care Time/CCT Total # of Minutes Spent Total Time Spent with Patient: Total time spent is greater than 50% in coordination of care (as documented) at patient's floor/unit and/or counseling patient: Coding Level of Care Code 90210 Subseq Hosp Care Lvl 3 Diagnoses Congestive heart failure due to cardiomyopathy I50.9; I42.9 Coronary disease I25.119 Coronary Disease-Associated Artery/Lesion type: [place] artery [place] vs. transplanted heart: [place] heart Associated angina: with unspecified angina Elevated troponin R77.8 (1) Coronary disease Coronary Disease-Associated Artery/Lesion type: [place] artery [place] vs. transplanted heart: [place] heart Associated angina: with unspecified angina Qualified Code(s): I25.119 - Atherosclerotic heart disease of [place] coronary artery with unspecified angina pectoris
[2020-06-20 15:31] LABS: Hematocrit (blood only) 33.4 % (42-52); Hemoglobin 11.6 g/dL (14.0-18.0); Immature Granulocytes # (auto) 0.02 K/uL (0.00-0.02); Immature Granulocytes % (auto) 0.1 %; Lymphocytes # (auto) 0.76 K/uL (1.2-3.4); Lymphocytes % (auto) 5.2 %; Mean Corpuscular Hemoglobin 28.7 pg (25-34); Mean Corpuscular Hgb Conc 34.7 g/dL (32-36); Mean Corpuscular Volume 82.7 fL (80-100); Mean Platelet Volume 10.1 fL (7.4-10.4); Monocytes # (auto) 0.03 K/uL (0.11-0.59); Monocytes % (auto) 0.2 %; Neutrophils # (auto) 13.79 K/uL (1.4-6.5); Neutrophils % (auto) 94.5 %; Platelet Count 290 K/uL (130-400); RDW Coefficient of Variation 17.3 % (11.5-14.5); RDW Standard Deviation 53.5 fL (36.4-46.3); Red Blood Count 4.04 M/uL (4.7-6.1)
[2020-06-20] MEDS ORDERED: COUGH DROP (SUGAR FREE) LOZ 24 LOZ/1 BOX BUCCAL STA (15:43)
[2020-06-20] MEDS ORDERED: COUGH DROP (SUGAR FREE) LOZ 24 LOZ/1 BOX BUCCAL PRN (15:43)
[2020-06-20] MEDS ORDERED: clonazePAM 0.5 MG TAB PO PRN (15:50)
--- NOTE | 2020-06-20 15:50 | Hospitalist Progress Note ---
Date of Service June 20, 2020 Assessment & Plan (1) Chest pain: Patient presented with left-sided chest pain reminiscent of his previous angina before his STEMI 2 weeks ago Troponin is trending downward likely from previous STEMI from 3--> 2 No acute coronary syndrome here Chest pain is resolved (2) COVID-19: Unsure of onset of symptoms or diagnosis. Patient reports he tested negative prior to going to rehab, but here is positive and hypoxic with possible viral pneumonitis seen on chest x-ray - Patient was treated with ABX and steroids while at [facility] for COPD exacerbation and CAP -As he is hypoxic here, started Decadron 6 mg IV once daily x10-day course-last day will be 2/6 -continue remdesivir x5-day course-last day of tx will be 2 Hold off on convalescent plasma given pulmonary edema and EF of 15% Clear liquids diet for now and advance as tolerated (3) Lethargy: Secondary to Covid-19 most likely--> now much improved ABG c/w hyperventilation, not hypercarbia Also with suspected GI bleeding possibly contributing although this is resolving Is also on clonazepam-PDMP website shows that he takes 1 mg 3 times daily, however discharge medication list from [facility] [place] states 0.5 mg p.o. 3 times daily He received 1 mg here initially but then HELD for lethargy--> ok to restart on a prn basis to avoid withdrawal (4) Hypoxia: As above, secondary to pulmonary edema and Covid-19 pneumonia as well as COPD exacerbation Treating Covid-19 as above Received IV Lasix upon admission continued Lasix p.o. once daily Given crackles and mild intermittent tachypnea today, gave another dose IV lasix 20mg x 1 Follow I's and O's, daily weights Supplemental O2 to keep pulse ox greater than 90% as he likely has COPD given 50 years of smoking (5) Black stool: Patient had a large black bowel movement on the early afternoon of 06/19 and smaller loose black stool on AM of 06/20 He is on Fe pills prior to admission He complains of left lower quadrant abdominal pain as well which is now known to be from acute diverticulitis He has been in the hospital for recent admission for STEMI and is on dual antiplatelet therapy-high risk for stress ulcer but could be GI bleed from AVM Hgb has remained fairly stable at 10-11 on serial CBC Lactate negative CT abd/pel with acute sigmoid diverticulitis -started IV PPI gtt--> continue through 06/21 end of day -start Carafate as per GI -continue to hold Lovenox, but must continue dual antiplatelet therapy due to recent stent in the LAD -follow CBC daily now and transfuse if hemoglobin drops less than 8-9 given recent STEMI or becomes hemodynamically unstable -Consult GI-appreciated--> holding off on EGD as he has stabilized and high risk for anesthesia (6) Pneumonia: Secondary to Covid-19 as above PCT 0.27, borderline elevated Continue IV Zosyn for diverticulitis as below which would also cover for healthcare associated pneumonia (7) Acute diverticulitis: CT abdomen/pelvis performed for acute GI bleeding and left lower quadrant pain With sigmoid diverticulitis seen, no bowel obstruction Pain improved today -advance diet to clears -continue IV Zosyn-start date 06/19 Lactate neg, remains withleukocytosis but on steroids too Follow CBC, CMP (8) Coronary disease: Status post recent STEMI with LAD stent-remains chest pain-free since admission - Cardiology consulted- appreciate assistance, no current plans to go to [facility] - Continue DAPT - Continue BB as patient remains hemodynamically stable and no evidence of worsening failure - Continue high dose statin (9) Congestive heart failure due to cardiomyopathy: EF 16% per [facility] [place] reports. Likely ICM - Patient discharged on LifeVest - Continue lifeVest when dishcarged - Medication optimization as above - with acute on chronic systolic CHF--> giving lasix IV again today -Continue Lasix p.o. daily -Appreciate cardiology consultation - Slowly introduce SUZANNE/ARB onto patient as blood pressure can tolerate Follow I's and O's Continue metoprolol (10) HTN (hypertension): Blood pressures chronically low likely secondary to severe systolic dysfunction Continue metoprolol, Lasix (11) Elevated troponin: 3 on admission and trending down to 2, likely trending downward from recent STEMI and not a new acute coronary syndrome (12) COPD (chronic obstructive pulmonary disease): As above Patient recently stopped smoking, smoked 1-5 cigarettes per day for 40 years. With wheezing here and mild COPD exacerbation - Continue albuterol and Umeclidinium -On Decadron for hypoxia with Covid-19 pneumonia (13) Anxiety and depression: Continue current outpatient regime but restrting clonazepam as above at lower dose of 0.5mg bid prn anxiety given previous lethargy on higher dose Continue home Abilify, trazodone, duloxetine (14) Hypothyroid: TSH mildly elevated, free T4 also mildly elevated-unclear picture Continue home Synthroid dose for now Repeat TFTs in 2 weeks (15) GERD (gastroesophageal reflux disease): Convert home p.o. Protonix to IV Protonix drip as above for acute GI bleeding (16) DVT prophylaxis: Holding Lovenox for GI bleed, continue SCDs Disposition-continued stay in PCU Full code Admission and Anticipated Discharge Date Admission Date: June 18, 2020 Subjective Pt feeling better today, asking for a throat lozenge or hard candy. Says LLQ abd pain is better. Had a dark liquid stool this AM but none since then. Is indeed on Fe pills prior to admission. Is less SOB today. No chest pain. EGD cancelled due to hgb stability and poor anesthesia candidate Tele with NSR Review of Systems Review of Systems: All systems reviewed & are unremarkable except as noted in HPI & below Physical Exam Constitutional: + ill appearing (chronically) and cooperative; no acute distress and not lethargic Eyes: + anicteric sclerae Neck: trachea midline, no thyromegaly Respiratory: normal respiratory effort; not tachypneic Auscultation: + crackles (Bilateral at bases); no rhonchi and no wheezes Cardiovascular: RRR, no murmur, no edema Chest (Breasts): Chest: normal inspection of chest Gastrointestinal (Abdomen): Inspection/Auscultation: normal bowel sounds Percussion/Palpation: + abdomen tender (in left lower quadrant without guarding or rebound but much improved) and abdomen soft; no guarding Musculoskeletal: Extremities: extremities normal to inspection; no cyanosis and no clubbing Skin: no rashes, warm and dry Neurologic: moves all extremities and awake; no focal motor deficits Psychiatric: Orientation: alert and oriented x 3 Affect: + flat affect Lymphatic: no lymphedema Results & Data Results & Data ([facility]) Vital Signs (Past 12 Hours) Vital Signs Temp Pulse Pulse Resp BP Pulse Ox 06/20/20 15:22 36.6 C 84 16 108/77 92 06/20/20 11:20 36.5 C 83 19 98/74 L 95 06/20/20 07:59 81 25 H 99/61 L 96 Laboratory Results 06/20/20 06/20/20 06/20/20 Range/Units Unknown 15:12 05:21 WBC 14.60 H (4.8-10.8) K/uL RBC 4.04 L (4.7-6.1) M/uL Hgb 11.6 L (14.0-18.0) g/dL Hct 33.4 L (42-52) % MCV 82.7 (80-100) fL MCH 28.7 (25-34) pg MCHC 34.7 (32-36) g/dL RDW Std Deviation 53.5 H (36.4-46.3) fL RDW Coeff of Adrien 17.3 H (11.5-14.5) % Plt Count 290 (130-400) K/uL MPV 10.1 (7.4-10.4) fL Immature Gran % (Auto) 0.1 % Neut % (Auto) 94.5 % Lymph % (Auto) 5.2 % [place] % (Auto) 0.2 % Eos % (Auto) 0.0 % Baso % (Auto) 0.0 % Neut # (Auto) 13.79 H (1.4-6.5) K/uL Lymph # (Auto) 0.76 L (1.2-3.4) K/uL [place] # (Auto) 0.03 L (0.11-0.59) K/uL Eos # (Auto) 0.00 (0-0.5) K/uL Baso # (Auto) 0.00 (0-0.2) K/uL Immature Gran # (Auto) 0.02 (0.00-0.02) K/uL Sodium 137 (136-145) mmol/L Potassium 3.5 (3.5-5.1) mmol/L Chloride 101 (98-107) mmol/L Carbon Dioxide 28 (21-32) mmol/L Anion Gap 8.0 (3-11) BUN 21 H (7-18) mg/dl Creatinine 1.07 (0.6-1.4) mg/dl Est Cr Clr Drug Dosing 75.8 ml/min Est GFR ( Amer) 87.0 Est GFR (Non-Af Amer) 75.1 BUN/Creatinine Ratio 19.5 (10-20) Glucose 116 H (70-99) mg/dl Lactate (0.4-2.0) mmol/L Calcium 8.3 L (8.5-10.1) mg/dl Phosphorus 4.1 (2.5-4.9) mg/dl Magnesium 2.0 (1.8-2.4) mg/dl Total Bilirubin 0.8 (0.2-1) mg/dl AST 96 H (15-37) U/L ALT 84 H (12-78) U/L Alkaline Phosphatase 53 (45-117) U/L Total Protein 5.9 L (6.4-8.2) gm/dl Albumin 1.7 L (3.4-5.0) gm/dl Globulin 4.1 H (2.5-4.0) gm/dl Albumin/Globulin Ratio 0.4 L (0.9-2) Procalcitonin (0-0.5) ng/ml Stool Occult Bld Scrn Negative (Negative) Blood Type Recheck 06/20/20 06/19/20 06/19/20 Range/Units 05:21 22:20 22:20 WBC 12.17 H 9.90 (4.8-10.8) K/uL RBC 3.70 L 3.61 L (4.7-6.1) M/uL Hgb 10.3 L 10.1 L (14.0-18.0) g/dL Hct 30.8 L 30.0 L (42-52) % MCV 83.2 83.1 (80-100) fL MCH 27.8 28.0 (25-34) pg MCHC 33.4 33.7 (32-36) g/dL RDW Std Deviation 52.6 H 52.2 H (36.4-46.3) fL RDW Coeff of Adrien 17.2 H 17.1 H (11.5-14.5) % Plt Count 258 234 (130-400) K/uL MPV 9.6 9.4 (7.4-10.4) fL Immature Gran % (Auto) 0.4 % Neut % (Auto) 83.9 % Lymph % (Auto) 5.3 % [place] % (Auto) 10.4 % Eos % (Auto) 0.0 % Baso % (Auto) 0.0 % Neut # (Auto) 10.21 H (1.4-6.5) K/uL Lymph # (Auto) 0.65 L (1.2-3.4) K/uL [place] # (Auto) 1.26 H (0.11-0.59) K/uL Eos # (Auto) 0.00 (0-0.5) K/uL Baso # (Auto) 0.00 (0-0.2) K/uL Immature Gran # (Auto) 0.05 H (0.00-0.02) K/uL Sodium (136-145) mmol/L Potassium (3.5-5.1) mmol/L Chloride (98-107) mmol/L Carbon Dioxide (21-32) mmol/L Anion Gap (3-11) BUN (7-18) mg/dl Creatinine (0.6-1.4) mg/dl Est Cr Clr Drug Dosing ml/min Est GFR ( Amer) Est GFR (Non-Af Amer) BUN/Creatinine Ratio (10-20) Glucose (70-99) mg/dl Lactate (0.4-2.0) mmol/L Calcium (8.5-10.1) mg/dl Phosphorus (2.5-4.9) mg/dl Magnesium (1.8-2.4) mg/dl Total Bilirubin (0.2-1) mg/dl AST (15-37) U/L ALT (12-78) U/L Alkaline Phosphatase (45-117) U/L Total Protein (6.4-8.2) gm/dl Albumin (3.4-5.0) gm/dl Globulin (2.5-4.0) gm/dl Albumin/Globulin Ratio (0.9-2) Procalcitonin 0.27 (0-0.5) ng/ml Stool Occult Bld Scrn (Negative) Blood Type Recheck 06/19/20 06/19/20 06/19/20 Range/Units 22:20 18:12 14:35 WBC 11.48 H (4.8-10.8) K/uL RBC 3.89 L (4.7-6.1) M/uL Hgb 11.1 L (14.0-18.0) g/dL Hct 32.5 L (42-52) % MCV 83.5 (80-100) fL MCH 28.5 (25-34) pg MCHC 34.2 (32-36) g/dL RDW Std Deviation 53.2 H (36.4-46.3) fL RDW Coeff of Adrien 17.3 H (11.5-14.5) % Plt Count 269 (130-400) K/uL MPV 9.4 (7.4-10.4) fL Immature Gran % (Auto) % Neut % (Auto) % Lymph % (Auto) % [place] % (Auto) % Eos % (Auto) % Baso % (Auto) % Neut # (Auto) (1.4-6.5) K/uL Lymph # (Auto) (1.2-3.4) K/uL [place] # (Auto) (0.11-0.59) K/uL Eos # (Auto) (0-0.5) K/uL Baso # (Auto) (0-0.2) K/uL Immature Gran # (Auto) (0.00-0.02) K/uL Sodium (136-145) mmol/L Potassium (3.5-5.1) mmol/L Chloride (98-107) mmol/L Carbon Dioxide (21-32) mmol/L Anion Gap (3-11) BUN (7-18) mg/dl Creatinine (0.6-1.4) mg/dl Est Cr Clr Drug Dosing ml/min Est GFR ( Amer) Est GFR (Non-Af Amer) BUN/Creatinine Ratio (10-20) Glucose (70-99) mg/dl Lactate 1.3 (0.4-2.0) mmol/L Calcium (8.5-10.1) mg/dl Phosphorus (2.5-4.9) mg/dl Magnesium (1.8-2.4) mg/dl Total Bilirubin (0.2-1) mg/dl AST (15-37) U/L ALT (12-78) U/L Alkaline Phosphatase (45-117) U/L Total Protein (6.4-8.2) gm/dl Albumin (3.4-5.0) gm/dl Globulin (2.5-4.0) gm/dl Albumin/Globulin Ratio (0.9-2) Procalcitonin (0-0.5) ng/ml Stool Occult Bld Scrn (Negative) Blood Type Recheck O Positive PG Care Time/CCT Total # of Minutes Spent Total Time Spent with Patient: Total time spent is greater than 50% in coordination of care (as documented) at patient's floor/unit and/or counseling patient: Coding Level of Care Code 86928 Subseq Hosp Care Lvl 3 Diagnoses Chest pain R07.9 COVID-19 U07.1 Lethargy R53.83 Hypoxia R09.02 Black stool K92.1 Pneumonia J18.9 Acute diverticulitis K57.92 Coronary disease I25.119 Coronary Disease-Associated Artery/Lesion type: [place] artery [place] vs. transplanted heart: [place] heart Associated angina: with unspecified angina Congestive heart failure due to cardiomyopathy I50.9; I42.9 HTN (hypertension) I10 Hypertension type: unspecified Elevated troponin R77.8 COPD (chronic obstructive pulmonary disease) J44.9 COPD type: emphysema Anxiety and depression F41.9; F32.9 Hypothyroid E03.9 Hypothyroidism type: unspecified GERD (gastroesophageal reflux disease) K21.9 DVT prophylaxis Z29.9 (1) Coronary disease Coronary Disease-Associated Artery/Lesion type: [place] artery [place] vs. transplanted heart: [place] heart Associated angina: with unspecified angina Qualified Code(s): I25.119 - Atherosclerotic heart disease of [place] coronary artery with unspecified angina pectoris (2) HTN (hypertension) Hypertension type: unspecified Qualified Code(s): I10 - Essential (primary) hypertension (3) COPD (chronic obstructive pulmonary disease) COPD type: emphysema (4) Hypothyroid Hypothyroidism type: unspecified Qualified Code(s): E03.9 - Hypothyroidism, unspecified
[2020-06-20] MEDS: SUCRALFATE 1 GM/10 ML UDC PO SCH ×2 (16:57→21:07)
[2020-06-20] MEDS: ACETAMINOPHEN 325 MG TAB PO PRN (19:18)
[2020-06-20] MEDS ORDERED: POTASSIUM CHLORIDE CRTAB 20 MEQ TABCR PO ONE (21:00)
[2020-06-20] MEDS: ATORVASTATIN 40 MG TAB PO SCH (21:08)
[2020-06-20] MEDS: traZODone HCL 50 MG TAB PO SCH (21:08)
[2020-06-20] MEDS: MELATONIN 3 MG TAB PO SCH (21:09)
[2020-06-21] MEDS: PANTOprazole 40 MG in DEXTROSE 5% 100 ML IV SCH ×5 (01:01→20:52)
[2020-06-21] MEDS: PIPERACILLIN/TAZOBACTAM 3.375 GM in DEXTROSE 5% 100 ML IV SCH ×3 (01:06→17:27)
[2020-06-21] MEDS: LEVOTHYROXINE SODIUM 50 MCG TABLET PO SCH (05:42)
[2020-06-21] MEDS: SUCRALFATE 1 GM/10 ML UDC PO SCH ×4 (08:18→20:56)
[2020-06-21] MEDS: ARIPiprazole 10 MG TAB PO SCH (08:19)
[2020-06-21] MEDS: DOCUSATE SODIUM 100 MG CAP PO SCH ×2 (08:19→20:51)
[2020-06-21] MEDS: DULoxetine HCL 60 MG CAP PO SCH ×2 (08:20→20:56)
[2020-06-21] MEDS: DEXAMETHASONE SOD PHOSPHATE 6 MG in SYRINGE 0 ML IV SCH (08:21)
[2020-06-21] MEDS: TICAGRELOR 90 MG TAB PO SCH ×2 (08:21→20:52)
[2020-06-21] MEDS: ASPIRIN 81 MG ECTAB PO SCH (08:22)
[2020-06-21] MEDS: FOLIC ACID 1 MG TAB PO SCH (08:22)
[2020-06-21] MEDS: FUROSEMIDE 20 MG TAB PO SCH (08:23)
[2020-06-21] MEDS: UMECLIDINIUM BROMIDE 62.5MCG/BLISTER 7 PUFFS/INHALER INH SCH (08:23)
[2020-06-21] MEDS: IRON POLYSACCHARIDE COMPLEX 150 MG CAPSULE PO SCH ×2 (08:24→20:57)
[2020-06-21] MEDS: FAMOTIDINE 20 MG TAB PO SCH (08:24)
[2020-06-21] MEDS: METOPROLOL SUCC 25MG EXT REL TAB PO SCH (08:24)
[2020-06-21] MEDS: ASCORBIC ACID 500 MG TAB PO SCH (08:25)
[2020-06-21] MEDS: CHOLECALCIFEROL 1,000 UNITS 25 MCG TAB PO SCH (08:25)
[2020-06-21] MEDS: ZINC SULFATE 220 MG CAPSULE PO SCH (08:25)
[2020-06-21 09:22] LABS: Eosinophils # (auto) 0.01 K/uL (0-0.5); Eosinophils % (auto) 0.1 %; Hematocrit (blood only) 36.3 % (42-52); Immature Granulocytes # (auto) 0.03 K/uL (0.00-0.02); Immature Granulocytes % (auto) 0.2 %; Lymphocytes # (auto) 1.05 K/uL (1.2-3.4); Lymphocytes % (auto) 6.7 %; Mean Corpuscular Hemoglobin 27.8 pg (25-34); Mean Corpuscular Hgb Conc 33.1 g/dL (32-36); Mean Corpuscular Volume 84.2 fL (80-100); Monocytes # (auto) 0.93 K/uL (0.11-0.59); Monocytes % (auto) 5.9 %; Neutrophils # (auto) 13.65 K/uL (1.4-6.5); Neutrophils % (auto) 87.1 %; Platelet Count 378 K/uL (130-400); RDW Coefficient of Variation 17.4 % (11.5-14.5); RDW Standard Deviation 54.5 fL (36.4-46.3); Red Blood Count 4.31 M/uL (4.7-6.1); White Blood Count 15.67 K/uL (4.8-10.8)
[2020-06-21 09:30] LABS: Albumin Level 1.9 gm/dl (3.4-5.0); BUN Creatinine Ratio 17.7 (10-20); Calcium 8.3 mg/dl (8.5-10.1); Creatinine Clr Calc Pharmacy 59.6 ml/min; Est GFR (African American) 65.1; Est GFR (Non-African American) 56.2; Potassium 3.4 mmol/L (3.5-5.1)
[2020-06-21] MEDS ORDERED: POTASSIUM CHLORIDE CRTAB 20 MEQ TABCR PO STA (09:51)
[2020-06-21] MEDS ORDERED: FUROSEMIDE 20 MG in SYRINGE 0 ML IV ONE (10:00)
[2020-06-21 10:06] LABS: Albumin Globulin Ratio 0.4 (0.9-2); Bilirubin,Total 0.7 mg/dl (0.2-1); Globulin 4.6 gm/dl (2.5-4.0); Phosphorus 2.9 mg/dl (2.5-4.9); Total Protein 6.5 gm/dl (6.4-8.2)
[2020-06-21] MEDS ORDERED: FUROSEMIDE 40 MG/4 ML VIAL IV ONE (12:57)
[2020-06-21] MEDS: REMDESIVIR 100 MG in SODIUM CHLORIDE 0.9% 230 ML IV SCH (13:00)
[2020-06-21] MEDS: SODIUM CHLORIDE 0.9% 10ML FLUSH IV SCH (13:00)
--- NOTE | 2020-06-21 13:19 | Electrocardiogram Report ---
Test Reason : Blood Pressure : / mmHG Vent. Rate : 066 BPM Atrial Rate : 066 BPM P-R Int : 138 ms QRS Dur : 098 ms QT Int : 440 ms P-R-T Axes : 074 054 237 degrees QTc Int : 461 ms Normal sinus rhythm Anteroseptal infarct (cited on or before 18-JUN-2020) Abnormal ECG When compared with ECG of 19-JUN-2020 06:25, Right bundle branch block is no longer Present Confirmed by Jason Wan [id number] on 06/21/2020 1:19:37 PM Referred By: REFERRED SELF Confirmed By:Jason Wan
--- NOTE | 2020-06-21 16:15 | Hospitalist Progress Note ---
Date of Service June 21, 2020 Assessment & Plan (1) Chest pain: Patient presented with left-sided chest pain reminiscent of his previous angina before his STEMI 2 weeks prior to admission Troponin is trending downward likely from previous STEMI from 3--> 2-->1.5 No acute coronary syndrome here Chest pain was resolved but then had a recurrent episode overnight on 06/20 associated with hypoxia and tachypnea that was relieved with nitroglycerin-no recurrence and troponin trended downward, ECG without acute ischemia Continue to diurese as needed-IV Lasix given today (2) COVID-19: Unsure of onset of symptoms or diagnosis. Patient reports he tested negative prior to going to rehab, but here is positive and hypoxic with possible viral pneumonitis seen on chest x-ray - Patient was treated with ABX and steroids while at [facility] for COPD exacerbation and CAP -As he is hypoxic here, started Decadron 6 mg IV once daily x10-day course-last day will be 06/28 -continue remdesivir x5-day course-last day of tx will be 2 Hold off on convalescent plasma given pulmonary edema and EF of 15% (3) Lethargy: Secondary to Covid-19 most likely--> now much improved ABG c/w hyperventilation, not hypercarbia Also with suspected GI bleeding possibly contributing although this is resolving Is also [facility] 1 mg 3 times daily, however discharge medication list from [facility] [place] states 0.5 mg p.o. 3 times daily He received 1 mg here initially but then HELD for lethargy--> ok to restart and will make scheduled twice daily to avoid withdrawal as he is having some anxiety (4) Hypoxia: As above, secondary to pulmonary edema and Covid-19 pneumonia as well as COPD exacerbation-worsening overnight now requiring 5 L Treating Covid-19 as above Received IV Lasix upon admission and on 06/20 Given crackles and mild intermittent tachypnea today, gave another dose IV lasix 20mg x 1 Follow I's and O's, daily weights Supplemental O2 to keep pulse ox greater than 90% as he likely has COPD given 50 years of smoking (5) Black stool: Patient had a large black bowel movement on the early afternoon of 06/19 and smaller loose black stool on AM of 06/20 He is on Fe pills prior to admission He complains of left lower quadrant abdominal pain as well which is now known to be from acute diverticulitis-this is improving Continues to have loose dark stools but is on a clear liquids diet He has been in the hospital for recent admission for STEMI and is on dual antiplatelet therapy-high risk for stress ulcer but could be GI bleed from AVM. However seems less likely had a true GI bleed as hemoglobin has gone up Hgb has remained fairly stable at 10-11 on serial CBC Lactate negative CT abd/pel with acute sigmoid diverticulitis -started IV PPI gtt--> continue through 06/21 end of day -Continue Carafate as per GI -continue to hold Lovenox, but must continue dual antiplatelet therapy due to recent stent in the LAD -follow CBC daily now and transfuse if hemoglobin drops less than 8-9 given recent STEMI or becomes hemodynamically unstable -Consult GI-appreciated--> holding off on EGD as he has stabilized and high risk for anesthesia (6) Pneumonia: Secondary to Covid-19 as above PCT 0.27, borderline elevated Continue IV Zosyn for diverticulitis as below but do not suspect bacterial pneumonia (7) Acute diverticulitis: CT abdomen/pelvis performed for acute GI bleeding and left lower quadrant pain With sigmoid diverticulitis seen, no bowel obstruction Pain more improved -advance diet to full liquids -continue IV Zosyn-start date 06/19 Lactate neg, remains with leukocytosis but on steroids too Follow CBC, CMP (8) Coronary disease: Status post recent STEMI with LAD stent-remains chest pain-free since admission - Cardiology consulted- appreciate assistance, no current plans to go to [facility] - Continue DAPT - Continue BB as patient remains hemodynamically stable and no evidence of worsening failure - Continue high dose statin (9) Congestive heart failure due to cardiomyopathy: EF 16% per [facility] [place] reports. Likely ICM - Patient discharged on LifeVest - Continue lifeVest when dishcarged - Medication optimization as above - with acute on chronic systolic CHF--> giving lasix IV again today -Continue Lasix p.o. daily -Appreciate cardiology consultation - Slowly introduce SUZANNE/ARB onto patient as blood pressure can tolerate Follow I's and O's Continue metoprolol (10) HTN (hypertension): Blood pressures chronically low likely secondary to severe systolic dysfunction Continue metoprolol, Lasix (11) Elevated troponin: 3 on admission and trending down to 2, likely trending downward from recent STEMI and not a new acute coronary syndrome (12) COPD (chronic obstructive pulmonary disease): As above Patient recently stopped smoking, smoked 1-5 cigarettes per day for 40 years. With wheezing here and mild COPD exacerbation - Continue albuterol and Umeclidinium -On Decadron for hypoxia with Covid-19 pneumonia (13) Anxiety and depression: Continue current outpatient regime but restrting clonazepam as above at lower dose of 0.5mg bid for anxiety given previous lethargy on higher dose Continue home Abilify, trazodone, duloxetine Make clonazepam scheduled today as he seems to be having some anxiety with withdrawal (14) Hypothyroid: TSH mildly elevated, free T4 also mildly elevated-unclear picture Continue home Synthroid dose for now Repeat TFTs in 2 weeks (15) GERD (gastroesophageal reflux disease): Convert home p.o. Protonix to IV Protonix drip as above for acute GI bleeding (16) Hypokalemia: Due to IV Lasix use Replace with p.o. potassium chloride Follow BMP and magnesium in the morning (17) DVT prophylaxis: Holding Lovenox for GI bleed, continue SCDs Disposition-continued stay in PCU Full code Admission and Anticipated Discharge Date Admission Date: June 18, 2020 Subjective Patient reports he feels more short of breath today. He had an episode last night of hypoxia in the low 80s with tachypnea and substernal chest pain which was relieved with nitroglycerin. He had a repeat ECG which was without acute ischemic changes. Repeat troponin x2 stayed stable at 1.5. He still feels short of breath but no further chest pain. He is more anxious and reports chest palpitations at times. Telemetry with normal sinus rhythm with PVCs rates in the 70s to 90s with a short period of bradycardia in the 40s to 50s overnight. He has had 6 loose dark bowel movements today but blames this on the liquids diet. Reports his left lower quadrant abdominal pain is improved from yesterday. Review of Systems Review of Systems: All systems reviewed & are unremarkable except as noted in HPI & below Reports having a mild bloody nose last night Physical Exam Constitutional: + ill appearing (chronically) and cooperative; no acute distress and not lethargic Eyes: + anicteric sclerae Neck: trachea midline, no thyromegaly Respiratory: normal respiratory effort; not tachypneic Auscultation: + crackles (Bilateral at bases); no rhonchi and no wheezes Cardiovascular: RRR, no murmur, no edema Chest (Breasts): Chest: normal inspection of chest Gastrointestinal (Abdomen): Inspection/Auscultation: normal bowel sounds Percussion/Palpation: + abdomen tender (Minimal in LLQ without guarding or rebound) and abdomen soft; no guarding Musculoskeletal: Extremities: extremities normal to inspection; no cyanosis and no clubbing Skin: no rashes, warm and dry Neurologic: moves all extremities and awake; no focal motor deficits Psychiatric: Orientation: alert and oriented x 3 Affect: + anxious affect Lymphatic: no lymphedema Results & Data Results & Data ([facility]) Vital Signs (Past 12 Hours) Vital Signs Temp Pulse Resp BP Pulse Ox 06/21/20 11:15 36.5 C 76 21 101/73 98 06/21/20 07:26 36.5 C 83 18 123/85 96 Laboratory Results 06/21/20 06/21/20 06/21/20 Range/Units 08:41 08:41 08:41 WBC 15.67 H (4.8-10.8) K/uL RBC 4.31 L (4.7-6.1) M/uL Hgb 12.0 L (14.0-18.0) g/dL Hct 36.3 L (42-52) % MCV 84.2 (80-100) fL MCH 27.8 (25-34) pg MCHC 33.1 (32-36) g/dL RDW Std Deviation 54.5 H (36.4-46.3) fL RDW Coeff of Adrien 17.4 H (11.5-14.5) % Plt Count 378 (130-400) K/uL MPV 10.0 (7.4-10.4) fL Immature Gran % (Auto) 0.2 % Neut % (Auto) 87.1 % Lymph % (Auto) 6.7 % [place] % (Auto) 5.9 % Eos % (Auto) 0.1 % Baso % (Auto) 0.0 % Neut # (Auto) 13.65 H (1.4-6.5) K/uL Lymph # (Auto) 1.05 L (1.2-3.4) K/uL [place] # (Auto) 0.93 H (0.11-0.59) K/uL Eos # (Auto) 0.01 (0-0.5) K/uL Baso # (Auto) 0.00 (0-0.2) K/uL Immature Gran # (Auto) 0.03 H (0.00-0.02) K/uL Sodium 138 (136-145) mmol/L Potassium 3.4 L (3.5-5.1) mmol/L Chloride 103 (98-107) mmol/L Carbon Dioxide 29 (21-32) mmol/L Anion Gap 6.0 (3-11) BUN 24 H (7-18) mg/dl Creatinine 1.36 (0.6-1.4) mg/dl Est Cr Clr Drug Dosing 59.6 ml/min Est GFR ( Amer) 65.1 Est GFR (Non-Af Amer) 56.2 BUN/Creatinine Ratio 17.7 (10-20) Glucose 114 H (70-99) mg/dl Calcium 8.3 L (8.5-10.1) mg/dl Phosphorus 2.9 D (2.5-4.9) mg/dl Magnesium 2.0 (1.8-2.4) mg/dl Total Bilirubin 0.7 (0.2-1) mg/dl AST 103 H (15-37) U/L ALT 114 H (12-78) U/L Alkaline Phosphatase 55 (45-117) U/L Troponin I 1.510 H* (0-0.045) ng/ml Total Protein 6.5 (6.4-8.2) gm/dl Albumin 1.9 L (3.4-5.0) gm/dl Globulin 4.6 H (2.5-4.0) gm/dl Albumin/Globulin Ratio 0.4 L (0.9-2) Nasal Screen MRSA (PCR) (Negative) 06/21/20 06/20/20 Range/Units 02:24 Unknown WBC (4.8-10.8) K/uL RBC (4.7-6.1) M/uL Hgb (14.0-18.0) g/dL Hct (42-52) % MCV (80-100) fL MCH (25-34) pg MCHC (32-36) g/dL RDW Std Deviation (36.4-46.3) fL RDW Coeff of Adrien (11.5-14.5) % Plt Count (130-400) K/uL MPV (7.4-10.4) fL Immature Gran % (Auto) % Neut % (Auto) % Lymph % (Auto) % [place] % (Auto) % Eos % (Auto) % Baso % (Auto) % Neut # (Auto) (1.4-6.5) K/uL Lymph # (Auto) (1.2-3.4) K/uL [place] # (Auto) (0.11-0.59) K/uL Eos # (Auto) (0-0.5) K/uL Baso # (Auto) (0-0.2) K/uL Immature Gran # (Auto) (0.00-0.02) K/uL Sodium (136-145) mmol/L Potassium (3.5-5.1) mmol/L Chloride (98-107) mmol/L Carbon Dioxide (21-32) mmol/L Anion Gap (3-11) BUN (7-18) mg/dl Creatinine (0.6-1.4) mg/dl Est Cr Clr Drug Dosing ml/min Est GFR ( Amer) Est GFR (Non-Af Amer) BUN/Creatinine Ratio (10-20) Glucose (70-99) mg/dl Calcium (8.5-10.1) mg/dl Phosphorus (2.5-4.9) mg/dl Magnesium (1.8-2.4) mg/dl Total Bilirubin (0.2-1) mg/dl AST (15-37) U/L ALT (12-78) U/L Alkaline Phosphatase (45-117) U/L Troponin I 1.550 H* (0-0.045) ng/ml Total Protein (6.4-8.2) gm/dl Albumin (3.4-5.0) gm/dl Globulin (2.5-4.0) gm/dl Albumin/Globulin Ratio (0.9-2) Nasal Screen MRSA (PCR) Negative (Negative) PG Care Time/CCT Total # of Minutes Spent Total Time Spent with Patient: Total time spent is greater than 50% in coordination of care (as documented) at patient's floor/unit and/or counseling patient: Coding Level of Care Code 85360 Subseq Hosp Care Lvl 3 Diagnoses Chest pain R07.9 COVID-19 U07.1 Lethargy R53.83 Hypoxia R09.02 Black stool K92.1 Pneumonia J18.9 Acute diverticulitis K57.92 Coronary disease I25.119 Coronary Disease-Associated Artery/Lesion type: [place] artery [place] vs. transplanted heart: [place] heart Associated angina: with unspecified angina Congestive heart failure due to cardiomyopathy I50.9; I42.9 HTN (hypertension) I10 Hypertension type: unspecified Elevated troponin R77.8 COPD (chronic obstructive pulmonary disease) J44.9 COPD type: emphysema Anxiety and depression F41.9; F32.9 Hypothyroid E03.9 Hypothyroidism type: unspecified GERD (gastroesophageal reflux disease) K21.9 Hypokalemia E87.6 DVT prophylaxis Z29.9 (1) Coronary disease Coronary Disease-Associated Artery/Lesion type: [place] artery [place] vs. transplanted heart: [place] heart Associated angina: with unspecified angina Qualified Code(s): I25.119 - Atherosclerotic heart disease of [place] coronary artery with unspecified angina pectoris (2) HTN (hypertension) Hypertension type: unspecified Qualified Code(s): I10 - Essential (primary) hypertension (3) COPD (chronic obstructive pulmonary disease) COPD type: emphysema (4) Hypothyroid Hypothyroidism type: unspecified Qualified Code(s): E03.9 - Hypothyroidism, unspecified
[2020-06-21] MEDS: traZODone HCL 50 MG TAB PO SCH (20:52)
[2020-06-21] MEDS: MELATONIN 3 MG TAB PO SCH (20:52)
[2020-06-21] MEDS: clonazePAM 0.5 MG TAB PO SCH (20:53)
[2020-06-21] MEDS: ATORVASTATIN 40 MG TAB PO SCH (20:56)
[2020-06-22] MEDS: PIPERACILLIN/TAZOBACTAM 3.375 GM in DEXTROSE 5% 100 ML IV SCH ×3 (01:21→17:15)
[2020-06-22] MEDS: LEVOTHYROXINE SODIUM 50 MCG TABLET PO SCH (06:11)
[2020-06-22 06:55] LABS: Eosinophils # (auto) 0.04 K/uL (0-0.5); Eosinophils % (auto) 0.3 %; Hemoglobin 11.5 g/dL (14.0-18.0); Immature Granulocytes # (auto) 0.04 K/uL (0.00-0.02); Immature Granulocytes % (auto) 0.3 %; Lymphocytes # (auto) 1.37 K/uL (1.2-3.4); Lymphocytes % (auto) 9.2 %; Mean Corpuscular Hemoglobin 27.8 pg (25-34); Mean Corpuscular Hgb Conc 32.9 g/dL (32-36); Mean Corpuscular Volume 84.5 fL (80-100); Monocytes # (auto) 1.15 K/uL (0.11-0.59); Monocytes % (auto) 7.7 %; Neutrophils # (auto) 12.35 K/uL (1.4-6.5); Neutrophils % (auto) 82.5 %; Platelet Count 378 K/uL (130-400); RDW Coefficient of Variation 17.4 % (11.5-14.5); RDW Standard Deviation 54.4 fL (36.4-46.3); Red Blood Count 4.14 M/uL (4.7-6.1); White Blood Count 14.95 K/uL (4.8-10.8)
[2020-06-22 07:27] LABS: Albumin Level 1.9 gm/dl (3.4-5.0); Creatinine Clr Calc Pharmacy 64.4 ml/min; Est GFR (African American) 71.4; Est GFR (Non-African American) 61.6; Potassium 3.3 mmol/L (3.5-5.1)
[2020-06-22 07:30] LABS: Albumin Globulin Ratio 0.4 (0.9-2); Bilirubin,Total 0.8 mg/dl (0.2-1); Globulin 4.4 gm/dl (2.5-4.0); Phosphorus 2.9 mg/dl (2.5-4.9); Total Protein 6.3 gm/dl (6.4-8.2)
[2020-06-22] MEDS ORDERED: POTASSIUM CHLORIDE CRTAB 20 MEQ TABCR PO STA (07:56)
[2020-06-22] MEDS ORDERED: FUROSEMIDE 20 MG in SYRINGE 0 ML IV ONE (08:15)
[2020-06-22] MEDS: SUCRALFATE 1 GM/10 ML UDC PO SCH ×4 (09:15→20:44)
[2020-06-22] MEDS: DEXAMETHASONE SOD PHOSPHATE 6 MG in SYRINGE 0 ML IV SCH (09:16)
[2020-06-22] MEDS: FAMOTIDINE 20 MG TAB PO SCH (09:17)
[2020-06-22] MEDS: UMECLIDINIUM BROMIDE 62.5MCG/BLISTER 7 PUFFS/INHALER INH SCH (09:17)
[2020-06-22] MEDS: DULoxetine HCL 60 MG CAP PO SCH ×2 (09:17→20:45)
[2020-06-22] MEDS: IRON POLYSACCHARIDE COMPLEX 150 MG CAPSULE PO SCH ×2 (09:17→20:44)
[2020-06-22] MEDS: DOCUSATE SODIUM 100 MG CAP PO SCH ×2 (09:17→20:44)
[2020-06-22] MEDS: ZINC SULFATE 220 MG CAPSULE PO SCH (09:18)
[2020-06-22] MEDS: ASPIRIN 81 MG ECTAB PO SCH (09:18)
[2020-06-22] MEDS: ASCORBIC ACID 500 MG TAB PO SCH (09:18)
[2020-06-22] MEDS: CHOLECALCIFEROL 1,000 UNITS 25 MCG TAB PO SCH (09:18)
[2020-06-22] MEDS: FOLIC ACID 1 MG TAB PO SCH (09:19)
[2020-06-22] MEDS: ARIPiprazole 10 MG TAB PO SCH (09:19)
[2020-06-22] MEDS: METOPROLOL SUCC 25MG EXT REL TAB PO SCH (09:19)
[2020-06-22] MEDS: TICAGRELOR 90 MG TAB PO SCH ×2 (09:25→20:51)
[2020-06-22] MEDS: clonazePAM 0.5 MG TAB PO SCH ×2 (09:25→20:51)
[2020-06-22] MEDS: REMDESIVIR 100 MG in SODIUM CHLORIDE 0.9% 230 ML IV SCH (11:57)
[2020-06-22] MEDS: SODIUM CHLORIDE 0.9% 10ML FLUSH IV SCH (11:58)
--- NOTE | 2020-06-22 12:27 | Electrocardiogram Report ---
Test Reason : Blood Pressure : / mmHG Vent. Rate : 088 BPM Atrial Rate : 088 BPM P-R Int : 168 ms QRS Dur : 096 ms QT Int : 414 ms P-R-T Axes : 051 023 -16 degrees QTc Int : 500 ms Normal sinus rhythm Anterior infarct (cited on or before 18-JUN-2020) Prolonged QT Abnormal ECG When compared with ECG of 21-JUN-2020 01:33, Serial changes of evolving Anterior infarct Present Confirmed by Jason Wan ([id number]) on 06/22/2020 12:27:21 PM Referred By: REFERRED SELF Confirmed By:Jason Wan
--- NOTE | 2020-06-22 17:46 | Hospitalist Progress Note ---
Date of Service June 22, 2020 Assessment & Plan (1) Chest pain: Patient presented with left-sided chest pain reminiscent of his previous angina before his STEMI 2 weeks prior to admission Troponin is trending downward likely from previous STEMI from 3--> 2-->1.5 No acute coronary syndrome here Chest pain was resolved but then had a recurrent episode overnight on 06/20 associated with hypoxia and tachypnea that was relieved with nitroglycerin-no recurrence and troponin trended downward, ECG without acute ischemia Continue to diurese as needed-IV Lasix given again today and he is now weaning down off of his oxygen (2) COVID-19: Unsure of onset of symptoms or diagnosis. Patient reports he tested negative prior to going to rehab, but here is positive and hypoxic with possible viral pneumonitis seen on chest x-ray - Patient was treated with ABX and steroids while at [facility] for COPD exacerbation and CAP -As he is hypoxic here, started Decadron 6 mg IV once daily x10-day course-last day will be 06/28 -continue remdesivir x5-day course-last day of tx will be 06/23 Hold off on convalescent plasma given pulmonary edema and EF of 15% He seems to be doing much better, appetite is improving, weaning down off supplemental oxygen LFTs are improving (3) Lethargy: Secondary to Covid-19 most likely--> now much improved ABG c/w hyperventilation, not hypercarbia Also with suspected GI bleeding possibly contributing although this is resolving Is also on [facility] that [facility] takes 1 mg 3 times daily, however discharge medication list from [facility] [place] states 0.5 mg p.o. 3 times daily He received 1 mg here initially but then HELD for lethargy--> restarted scheduled dosing at clonazepam 0.5 mg p.o. twice daily to avoid withdrawal as he was having some anxiety on 06/21 (4) Hypoxia: As above, secondary to pulmonary edema and Covid-19 pneumonia as well as COPD exacerbation-was worsening and was requiring 5 L Now much improved with IV Lasix on 06/20 and 06/21, now weaning down off of supplemental O2 Treating Covid-19 as above Follow I's and O's, daily weights Supplemental O2 to keep pulse ox greater than 90% as he likely has COPD given 50 years of smoking Continue to wean down O2 -Continue Decadron for Covid-19 Continue albuterol as needed Make Lasix scheduled p.o. starting tomorrow and give IV Lasix as needed (5) Black stool: Patient had a large black bowel movement on the early afternoon of 06/19 and smaller loose black stool on AM of 06/20 He is on Fe pills prior to admission He complains of left lower quadrant abdominal pain as well which is now known to be from acute diverticulitis-this is improving Continues to have loose dark stools but is on a clear liquids diet and hemoglo bin remained stable-this is not likely acute GI bleeding as originally thought He has been in the hospital for recent admission for STEMI and is on dual antiplatelet therapy-high risk for stress ulcer but could be GI bleed from AVM. However seems less likely had a true GI bleed as hemoglobin has gone up Hgb has remained fairly stable at 10-11 on serial CBC Lactate negative CT abd/pel with acute sigmoid diverticulitis -started IV PPI gtt x3 days-now convert to Protonix 40 mg once daily -Also continue Pepcid -Continue Carafate as per GI x2-week course -Okay to restart Lovenox -Continue dual antiplatelet therapy due to recent stent in the LAD -follow CBC daily now and transfuse if hemoglobin drops less than 8-9 given recent STEMI or becomes hemodynamically unstable -Consult GI-appreciated--> holding off on EGD as he has stabilized and high risk for anesthesia (6) Pneumonia: Secondary to Covid-19 as above PCT 0.27, borderline elevated Continue IV Zosyn for diverticulitis as below but do not suspect bacterial pneumonia (7) Acute diverticulitis: CT abdomen/pelvis performed for acute GI bleeding and left lower quadrant pain With sigmoid diverticulitis seen, no bowel obstruction Pain is now resolved with bowel rest and IV antibiotics -advance diet to heart healthy, low fiber -continue IV Zosyn-start date 06/19-plan to treat for 10 days total but can convert to p.o. antibiotics in a few days Lactate neg, remains with leukocytosis but on steroids too Follow CBC, CMP (8) Coronary disease: Status post recent STEMI with LAD stent-remains chest pain-free since admission - Cardiology consulted- appreciate assistance, no current plans to go to [facility] - Continue DAPT - Continue BB as patient remains hemodynamically stable and no evidence of worsening failure - Continue high dose statin (9) Congestive heart failure due to cardiomyopathy: EF 16% per [facility] perfecto reports. Likely ICM - Patient discharged on LifeVest - Continue lifeVest when discharged - Medication optimization as above - with acute on chronic systolic CHF--> giving lasix IV again today and convert to p.o. Lasix tomorrow -Appreciate cardiology consultation - Slowly introduce SUZANNE/ARB onto patient as blood pressure can tolerate Follow I's and O's Continue metoprolol (10) HTN (hypertension): Blood pressures chronically low likely secondary to severe systolic dysfunction Continue metoprolol, Lasix (11) Elevated troponin: 3 on admission and trending down to 1.5, likely trending downward from recent STEMI and not a new acute coronary syndrome (12) COPD (chronic obstructive pulmonary disease): As above Patient recently stopped smoking, smoked 1-5 cigarettes per day for 40 years. With wheezing here and mild COPD exacerbation - Continue albuterol and Umeclidinium -On Decadron for hypoxia with Covid-19 pneumonia (13) Anxiety and depression: Continue current outpatient regime but decrease clonazepam to a lower dose of 0.5mg bid given previous lethargy on higher dose Continue home Abilify, trazodone, duloxetine (14) Hypothyroid: TSH mildly elevated, free T4 also mildly elevated-unclear picture Continue home Synthroid dose for now Repeat TFTs in 2 weeks (15) GERD (gastroesophageal reflux disease): DC IV Protonix for suspected GI bleed and convert back to p.o. Protonix once daily now Continue Pepcid (16) Hypokalemia: Due to IV Lasix use Replace again today with p.o. potassium chloride and make it scheduled 20 mEq p.o. twice daily Follow BMP and magnesium in the morning (17) DVT prophylaxis: Okay to restart Lovenox SQ, continue SCDs Disposition-continued stay in PCU, slowly improving but very frail given severe CHF, acute diverticulitis, Covid-19, and acute respiratory failure with hypoxia Came from [facility], but likely cannot return there with positive Covid. Will need to look for shelter facilities elsewhere that will accept him with Covid in the next few days Full code Admission and Anticipated Discharge Date Admission Date: June 18, 2020 Subjective Patient feels better today than yesterday. Reports no further abdominal pain in the left lower quadrant. He is hungry for macaroni and cheese. He denies shortness of breath. No chest pain He had his nasal prongs above his nose when I walked in and he was satting 94% on room air essentially. Telemetry with normal sinus rhythm with rates in the 60s to 70s Review of Systems Review of Systems: All systems reviewed & are unremarkable except as noted in HPI & below Physical Exam Constitutional: + ill appearing (chronically) and cooperative; no acute distress and not lethargic Eyes: + anicteric sclerae Neck: trachea midline, no thyromegaly Respiratory: normal respiratory effort; not tachypneic Auscultation: + crackles (Bilateral at bases); no rhonchi and no wheezes Cardiovascular: RRR, no murmur, no edema Chest (Breasts): Chest: normal inspection of chest Gastrointestinal (Abdomen): normal bowel sounds, soft, nontender, no hepatosplenomegaly Musculoskeletal: Extremities: extremities normal to inspection; no cyanosis and no clubbing Skin: no rashes, warm and dry Neurologic: moves all extremities and awake; no focal motor deficits Psychiatric: Orientation: alert and oriented x 3 Lymphatic: no lymphedema Results & Data Results & Data ([facility]) Vital Signs (Past 12 Hours) Vital Signs Temp Pulse Pulse Resp BP Pulse Ox 06/22/20 15:34 36.8 C 84 18 102/63 94 06/22/20 11:10 37.0 C 84 24 97/66 L 92 06/22/20 06:57 37.0 C 66 18 100/62 95 Laboratory Results 06/22/20 06/22/20 Range/Units 05:55 05:55 WBC 14.95 H (4.8-10.8) K/uL RBC 4.14 L (4.7-6.1) M/uL Hgb 11.5 L (14.0-18.0) g/dL Hct 35.0 L (42-52) % MCV 84.5 (80-100) fL MCH 27.8 (25-34) pg MCHC 32.9 (32-36) g/dL RDW Std Deviation 54.4 H (36.4-46.3) fL RDW Coeff of Adrien 17.4 H (11.5-14.5) % Plt Count 378 (130-400) K/uL MPV 10.0 (7.4-10.4) fL Immature Gran % (Auto) 0.3 % Neut % (Auto) 82.5 % Lymph % (Auto) 9.2 % Louis[place] % (Auto) 7.7 % Eos % (Auto) 0.3 % Baso % (Auto) 0.0 % Neut # (Auto) 12.35 H (1.4-6.5) K/uL Lymph # (Auto) 1.37 (1.2-3.4) K/uL Louisa # (Auto) 1.15 H (0.11-0.59) K/uL Eos # (Auto) 0.04 (0-0.5) K/uL Baso # (Auto) 0.00 (0-0.2) K/uL Immature Gran # (Auto) 0.04 H (0.00-0.02) K/uL Sodium 141 (136-145) mmol/L Potassium 3.3 L (3.5-5.1) mmol/L Chloride 106 (98-107) mmol/L Carbon Dioxide 29 (21-32) mmol/L Anion Gap 6.0 (3-11) BUN 23 H (7-18) mg/dl Creatinine 1.26 (0.6-1.4) mg/dl Est Cr Clr Drug Dosing 64.4 ml/min Est GFR ( Amer) 71.4 Est GFR (Non-Af Amer) 61.6 BUN/Creatinine Ratio 18.0 (10-20) Glucose 97 (70-99) mg/dl Calcium 8.0 L (8.5-10.1) mg/dl Phosphorus 2.9 (2.5-4.9) mg/dl Magnesium 2.0 (1.8-2.4) mg/dl Total Bilirubin 0.8 (0.2-1) mg/dl AST 60 H (15-37) U/L ALT 86 H (12-78) U/L Alkaline Phosphatase 55 (45-117) U/L Total Protein 6.3 L (6.4-8.2) gm/dl Albumin 1.9 L (3.4-5.0) gm/dl Globulin 4.4 H (2.5-4.0) gm/dl Albumin/Globulin Ratio 0.4 L (0.9-2) PG Care Time/CCT Total # of Minutes Spent Total Time Spent with Patient: Total time spent is greater than 50% in coordination of care (as documented) at patient's floor/unit and/or counseling patient: Coding Level of Care Code 30636 Subseq Hosp Care Lvl 3 Diagnoses Chest pain R07.9 COVID-19 U07.1 Lethargy R53.83 Hypoxia R09.02 Black stool K92.1 Pneumonia J18.9 Acute diverticulitis K57.92 Coronary disease I25.119 Coronary Disease-Associated Artery/Lesion type: [place] artery [place] vs. 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 transplanted heart: [place] heart Associated angina: with unspecified angina Qualified Code(s): I25.119 - Atherosclerotic heart disease of [place] coronary artery with unspecified angina pectoris (2) HTN (hypertension) Hypertension type: unspecified Qualified Code(s): I10 - Essential (primary) hypertension (3) COPD (chronic obstructive pulmonary disease) COPD type: emphysema (4) Hypothyroid Hypothyroidism type: unspecified Qualified Code(s): E03.9 - Hypothyroidism, unspecified
[2020-06-22] MEDS: PANTOprazole 40 MG TAB PO SCH (18:35)
[2020-06-22] MEDS: POTASSIUM CHLORIDE CRTAB 20 MEQ TABCR PO SCH (20:46)
[2020-06-22] MEDS: ATORVASTATIN 40 MG TAB PO SCH (20:47)
[2020-06-22] MEDS: traZODone HCL 50 MG TAB PO SCH (20:50)
[2020-06-22] MEDS: MELATONIN 3 MG TAB PO SCH (20:51)
[2020-06-23] MEDS: PIPERACILLIN/TAZOBACTAM 3.375 GM in DEXTROSE 5% 100 ML IV SCH ×3 (01:34→17:08)
[2020-06-23] MEDS: LEVOTHYROXINE SODIUM 50 MCG TABLET PO SCH (05:42)
[2020-06-23 06:52] LABS: Eosinophils # (auto) 0.05 K/uL (0-0.5); Eosinophils % (auto) 0.3 %; Hematocrit (blood only) 33.3 % (42-52); Hemoglobin 10.9 g/dL (14.0-18.0); Immature Granulocytes # (auto) 0.06 K/uL (0.00-0.02); Immature Granulocytes % (auto) 0.4 %; Lymphocytes # (auto) 1.28 K/uL (1.2-3.4); Lymphocytes % (auto) 7.9 %; Mean Corpuscular Hemoglobin 27.5 pg (25-34); Mean Corpuscular Hgb Conc 32.7 g/dL (32-36); Mean Corpuscular Volume 84.1 fL (80-100); Mean Platelet Volume 9.7 fL (7.4-10.4); Monocytes # (auto) 1.21 K/uL (0.11-0.59); Monocytes % (auto) 7.5 %; Neutrophils # (auto) 13.52 K/uL (1.4-6.5); Neutrophils % (auto) 83.9 %; Platelet Count 360 K/uL (130-400); RDW Coefficient of Variation 17.3 % (11.5-14.5); RDW Standard Deviation 53.4 fL (36.4-46.3); Red Blood Count 3.96 M/uL (4.7-6.1); White Blood Count 16.12 K/uL (4.8-10.8)
[2020-06-23 07:27] LABS: Albumin Level 1.8 gm/dl (3.4-5.0); Creatinine Clr Calc Pharmacy 78.3 ml/min; Est GFR (African American) 95.5; Est GFR (Non-African American) 82.4; Magnesium 2.1 mg/dl (1.8-2.4); Potassium 3.5 mmol/L (3.5-5.1)
--- NOTE | 2020-06-23 07:27 | Communication Note ---
Date of Service: June 23, 2020 Chart reviewed. Remains on 8L O2, sats 95 this AM. HGB stable. BUN pending. No further dark stools reported, documented is a loose brown stool earlier this AM. 60 year old male w/ history of recent STEMI, ischemic cardiomyopathy EF 16%, CHF, COVID PNA with dark stools last week w/o significant HGB drop or BUN rise, treated conservatively on IV PPI given his increased risk for anesthesia. It appears he is no longer having black stools. Would continue with conservative care. Ensure 72 hours IV PPI then PO PPI BID. Avoid NSAIDs. Trend HGB. Transfuse PRN. In the event of concern for acute GI bleed, please update GI. Thank you for allowing us to participate in the care of this patient. Please call with any acute changes, questions or concerns. Please see addendum below with additional recommendation from my supervising physician.
[2020-06-23 07:30] LABS: Albumin Globulin Ratio 0.4 (0.9-2); Bilirubin,Total 0.8 mg/dl (0.2-1); Globulin 4.2 gm/dl (2.5-4.0)
[2020-06-23] MEDS: SUCRALFATE 1 GM/10 ML UDC PO SCH ×4 (07:40→20:50)
[2020-06-23] MEDS: DOCUSATE SODIUM 100 MG CAP PO SCH ×2 (09:09→20:48)
[2020-06-23] MEDS: DEXAMETHASONE SOD PHOSPHATE 6 MG in SYRINGE 0 ML IV SCH (09:09)
[2020-06-23] MEDS: POTASSIUM CHLORIDE CRTAB 20 MEQ TABCR PO SCH ×2 (09:10→20:51)
[2020-06-23] MEDS: ZINC SULFATE 220 MG CAPSULE PO SCH (09:10)
[2020-06-23] MEDS: ARIPiprazole 10 MG TAB PO SCH (09:10)
[2020-06-23] MEDS: DULoxetine HCL 60 MG CAP PO SCH ×2 (09:11→20:52)
[2020-06-23] MEDS: ASCORBIC ACID 500 MG TAB PO SCH (09:11)
[2020-06-23] MEDS: FAMOTIDINE 20 MG TAB PO SCH (09:12)
[2020-06-23] MEDS: ASPIRIN 81 MG ECTAB PO SCH (09:12)
[2020-06-23] MEDS: FOLIC ACID 1 MG TAB PO SCH (09:12)
[2020-06-23] MEDS: IRON POLYSACCHARIDE COMPLEX 150 MG CAPSULE PO SCH ×2 (09:12→20:52)
[2020-06-23] MEDS: CHOLECALCIFEROL 1,000 UNITS 25 MCG TAB PO SCH (09:13)
[2020-06-23] MEDS: PANTOprazole 40 MG TAB PO SCH (09:14)
[2020-06-23] MEDS: ENOXAPARIN INJ 40 MG/0.4 ML SYR SQ SCH (09:15)
[2020-06-23] MEDS: FUROSEMIDE 20 MG TAB PO SCH (09:15)
[2020-06-23] MEDS: METOPROLOL SUCC 25MG EXT REL TAB PO SCH (09:20)
[2020-06-23] MEDS: clonazePAM 0.5 MG TAB PO SCH ×2 (09:24→20:56)
[2020-06-23] MEDS: TICAGRELOR 90 MG TAB PO SCH ×2 (09:24→20:57)
[2020-06-23] MEDS: UMECLIDINIUM BROMIDE 62.5MCG/BLISTER 7 PUFFS/INHALER INH SCH (09:25)
--- NOTE | 2020-06-23 11:00 | Hospitalist Progress Note ---
Date of Service June 23, 2020 Assessment & Plan (1) COVID-19: Unsure of onset of symptoms or diagnosis. Patient reports he tested negative prior to going to rehab, but here is positive and hypoxic with viral pneumonitis seen on chest x-ray - Patient was treated with ABX and steroids while at [facility] for COPD exacerbation and CAP -As he is hypoxic here, started Decadron 6 mg IV once daily x10-day course-last day will be 06/28 -continue remdesivir x5-day course-last day is today, 06/23 Hold off on convalescent plasma given pulmonary edema and EF of 15% he is breathing comfortably on 8L today no distress or tachypnea try to wean oxygen as tolerated (2) Chest pain: Patient presented with left-sided chest pain reminiscent of his previous angina before his STEMI 2 weeks prior to admission Troponin trended down likely from previous STEMI from 3--> 2-->1.5 No evidence of acute coronary syndrome (3) Lethargy: Secondary to Covid-19 most likely--> now much improved ABG c/w hyperventilation, not hypercarbia Also with suspected GI bleeding possibly contributing although this is resolving Is also [facility] 1 mg 3 times daily, however discharge medication list from [facility] states 0.5 mg p.o. 3 times daily He received 1 mg here initially but then HELD for lethargy--> restarted scheduled dosing at clonazepam 0.5 mg p.o. twice daily to avoid withdrawal as he was having some anxiety on 06/21 he is alert today, continue the BID dosing schedule (4) Hypoxia: As above, secondary to pulmonary edema and Covid-19 pneumonia as well as COPD exacerbation Now much improved with IV Lasix on 06/20 and 06/21, now weaning down off of supplemental O2 Treating Covid-19 as above Follow I's and O's, daily weights Supplemental O2 to keep pulse ox greater than 90% as he likely has COPD given 50 years of smoking Continue to wean down O2 but today he is on 8L -Continue Decadron for Covid-19 Continue albuterol as needed continue Lasix 20mg PO daily (5) Black stool: Patient had a large black bowel movement on the early afternoon of 06/19 and smaller loose black stool on AM of 06/20 He is on Fe pills prior to admission He complains of left lower quadrant abdominal pain as well which is now known to be from acute diverticulitis-this is improving Continues to have loose dark stools but is on a clear liquids diet and hemoglobin remained stable-this is not likely acute GI bleeding as originally thought He has been in the hospital for recent admission for STEMI and is on dual a ntiplatelet therapy-high risk for stress ulcer but could be GI bleed from AVM. However seems less likely had a true GI bleed as hemoglobin has gone up Hgb has remained stable, > [address] abd/pel with acute sigmoid diverticulitis -started IV PPI gtt x3 days-now convert to Protonix 40 mg once daily -Also continue Pepcid -Continue Carafate as per GI x2-week course -Okay to restart Lovenox -Continue dual antiplatelet therapy due to recent stent in the LAD -follow CBC daily now and transfuse if hemoglobin drops less than 8-9 given recent STEMI or becomes hemodynamically unstable -Consult GI-appreciated--> holding off on EGD as he has stabilized and high risk for anesthesia (6) Pneumonia: Secondary to Covid-19 as above PCT 0.27, borderline elevated Continue IV Zosyn for diverticulitis as below but do not suspect bacterial pneumonia (7) Acute diverticulitis: CT abdomen/pelvis performed for acute GI bleeding and left lower quadrant pain With sigmoid diverticulitis seen, no bowel obstruction Pain is now resolved with bowel rest and IV antibiotics -advance diet to heart healthy, low fiber -continue IV Zosyn-start date 06/19-plan to treat for 10 days total, continue Zosyn until at least 2/3 then change to PO Lactate neg, remains with leukocytosis but on steroids too Follow CBC, CMP (8) Coronary disease: Status post recent STEMI with LAD stent-remains chest pain-free since admission - Cardiology consulted- appreciate assistance, no current plans to go to blood bank laboratory professional - Continue DAPT - Continue BB as patient remains hemodynamically stable and no evidence of worsening failure - Continue high dose statin (9) Congestive heart failure due to cardiomyopathy: EF 16% per [facility] [place] reports. Likely ICM - Patient discharged on LifeVest - Continue lifeVest when discharged, does not need to wear in the hospital - Medication optimization as above - with acute on chronic systolic CHF--> giving lasix IV again today and convert to p.o. Lasix tomorrow -Appreciate cardiology consultation - Slowly introduce SUZANNE/ARB onto patient as blood pressure can tolerate, too low today Follow I's and O's Continue metoprolol (10) HTN (hypertension): Blood pressures chronically low likely secondary to severe systolic dysfunction Continue metoprolol, Lasix (11) Elevated troponin: 3 on admission and trending down to 1.5, likely trending downward from recent STEMI and not a new acute coronary syndrome (12) COPD (chronic obstructive pulmonary disease): As above Patient recently stopped smoking, smoked 1-5 cigarettes per day for 40 years. With wheezing here and mild COPD exacerbation - Continue albuterol and Umeclidinium -On Decadron for hypoxia with Covid-19 pneumonia (13) Anxiety and depression: Continue current outpatient regime but decrease clonazepam to a lower dose of 0.5mg bid given previous lethargy on higher dose Continue home Abilify, trazodone, duloxetine (14) Hypothyroid: TSH mildly elevated, free T4 also mildly elevated-unclear picture Continue home Synthroid dose for now Repeat TFTs in 2 weeks (15) GERD (gastroesophageal reflux disease): DC IV Protonix for suspected GI bleed and convert back to p.o. Protonix on ce daily now Continue Pepcid (16) Hypokalemia: Due to IV Lasix use continue potassium chloride 20 mEq p.o. twice daily K is 3.5 today (17) DVT prophylaxis: Okay to restart Lovenox SQ, continue SCDs Disposition-continued stay in PCU, slowly improving but very frail given severe CHF, acute diverticulitis, Covid-19, and acute respiratory failure with hypoxia Came from [facility] rehab, but likely cannot return there with positive Covid. Will need to look for [place] [facility] facilities elsewhere that will accept him with Covid in the next few days Full code Admission and Anticipated Discharge Date Admission Date: June 18, 2020 Subjective patient doing okay this morning, laying on his right side, no distress on 4L denies dyspnea, denies chest pain/pressure, denies abdominal pain had a loose stool this AM, says he is making urine, no nausea he is eating "everything they bring me" reviewed chart reviewed labs, Cr is stable, electrolytes normal, Hb is > 10 WBC up to 16k with 83% PMN appreciate note from GI, they will sign off for now Review of Systems Review of Systems: All systems reviewed & are unremarkable except as noted in Subjective Constitutional: + fatigue and + weakness; no fever, no chills and no sweats Respiratory: + dyspnea on exertion; no cough and no dyspnea Cardiovascular: no chest pain and no edema Gastrointestinal: + diarrhea/loose stools; no abdominal pain, no nausea, no vomiting and no constipation Physical Exam Constitutional: well developed, + thin, + frail appearing and comfortable; no acute distress Neck: trachea midline, no thyromegaly Respiratory: normal respiratory effort, lungs clear to auscultation Cardiovascular: RRR, no murmur, no edema Gastrointestinal (Abdomen): normal bowel sounds, soft, nontender, no hepatosplenomegaly Musculoskeletal: no cyanosis or clubbing, extremities motor strength 5/5 Skin: no rashes, warm and dry Neurologic: patellar DTR's 2+ bilat, sensation intact and PERRL, EOMI, accommodation nl, no face palsy, no dysarthria Psychiatric: Orientation: alert and oriented x 3 Affect: + flat affect Lymphatic: no cervical or axillary lymphadenopathy Results & Data Results & Data ([facility]) Vital Signs (Past 12 Hours) Vital Signs Temp Pulse Pulse Pulse Resp BP Pulse Ox 06/23/20 10:11 76 06/23/20 07:19 37.0 C 79 23 99/70 L 95 06/23/20 03:59 36.8 C 83 20 88/62 L 97 06/22/20 23:32 36.9 C 68 24 99/70 L 90 06/22/20 23:00 76 Laboratory Results Laboratory Results - last 24 hr 06/19/20 06/23/20 06/23/20 13:28 06:05 06:05 WBC 16.12 H RBC 3.96 L Hgb 10.9 L Hct 33.3 L MCV 84.1 MCH 27.5 MCHC 32.7 RDW Std Deviation 53.4 H RDW Coeff of Adrien 17.3 H Plt Count 360 MPV 9.7 Immature Gran % (Auto) 0.4 Neut % (Auto) 83.9 Lymph % (Auto) 7.9 [place] % (Auto) 7.5 Eos % (Auto) 0.3 Baso % (Auto) 0.0 Neut # (Auto) 13.52 H Lymph # (Auto) 1.28 [place] # (Auto) 1.21 H Eos # (Auto) 0.05 Baso # (Auto) 0.00 Immature Gran # (Auto) 0.06 H Sodium 142 Potassium 3.5 Chloride 109 H Carbon Dioxide 28 Anion Gap 5.0 BUN 22 H Creatinine 0.99 Est Cr Clr Drug Dosing 78.3 Est GFR ( Amer) 95.5 Est GFR (Non-Af Amer) 82.4 BUN/Creatinine Ratio 22.0 H Glucose 96 Calcium 8.0 L Magnesium 2.1 Total Bilirubin 0.8 AST 35 ALT 61 Alkaline Phosphatase 51 Total Protein 6.0 L Albumin 1.8 L Globulin 4.2 H Albumin/Globulin Ratio 0.4 L Crossmatch See Detail Medications Administered Current Inpatient Medications Acetaminophen (Acetaminophen 325 Mg Tab) 650 mg PO QID PRN PRN Reason: Pain Stop: 07/18/20 16:39 Last Admin: 06/20/20 19:18 Dose: 650 mg Documented by: Albuterol (Albuterol Hfa 8 Gm Inhaler) 1 puffs INH Q4H PRN PRN Reason: Wheezing Stop: 07/18/20 16:39 Aripiprazole (Aripiprazole 10 Mg Tab) 10 mg PO DAILY HILARIA Stop: 07/19/20 08:59 Last Admin: 06/23/20 09:10 Dose: 10 mg Documented by: Ascorbic Acid (Ascorbic Acid 500 Mg Tab) 500 mg PO DAILY HILARIA Stop: 07/19/20 08:59 Last Admin: 06/23/20 09:11 Dose: 500 mg Documented by: Aspirin (Aspirin 81 Mg Ectab) 81 mg PO DAILY HILARIA Stop: 07/19/20 08:59 Last Admin: 06/23/20 09:12 Dose: 81 mg Documented by: Atorvastatin Calcium (Atorvastatin 40 Mg Tab) 80 mg PO HS HILARIA Stop: 07/18/20 20:59 Last Admin: 06/22/20 20:47 Dose: 80 mg Documented by: Clonazepam (Clonazepam 0.5 Mg Tab) 0.5 mg PO BID HILARIA Stop: 07/21/20 20:59 Last Admin: 06/23/20 09:24 Dose: 0.5 mg Documented by: Docusate Sodium (Docusate Sodium 100 Mg Cap) 100 mg PO BID HILARIA Stop: 07/18/20 20:59 Last Admin: 06/23/20 09:09 Dose: 100 mg Documented by: Duloxetine HCl (Duloxetine Hcl 60 Mg Cap) 60 mg PO BID [facility] Stop: 07/18/20 20:59 Last Admin: 06/23/20 09:11 Dose: 60 mg Documented by: Enoxaparin Sodium (Enoxaparin Inj 40 Mg/0.4 Ml Syr) 40 mg SQ DAILY HILARIA Stop: 07/19/20 08:59 Last Admin: 06/23/20 09:15 Dose: 40 mg Documented by: Famotidine (Famotidine 20 Mg Tab) 20 mg PO DAILY HILARIA Stop: 07/19/20 08:59 Last Admin: 06/23/20 09:12 Dose: 20 mg Documented by: Folic Acid (Folic Acid 1 Mg Tab) 1 mg PO DAILY HILARIA Stop: 07/19/20 08:59 Last Admin: 06/23/20 09:12 Dose: 1 mg Documented by: Furosemide (Furosemide 20 Mg Tab) 20 mg PO DAILY [facility] Stop: 07/19/20 08:59 Last Admin: 06/23/20 09:15 Dose: 20 mg Documented by: Dexamethasone Sodium Phosphate (6 mg/ Syringe) 1.5 mls @ 1 mls/min IV QAM [facility] Stop: 07/19/20 09:29 Last Admin: 06/23/20 09:09 Dose: 1 mls/min Documented by: Remdesivir 100 mg/ Sodium (Chloride) 250 mls @ 250 mls/hr IV Q24H [facility]; Protocol Stop: 06/23/20 12:59 Last Infusion: 06/22/20 14:49 Dose: Infused Documented by: Piperacillin Sod/Tazobactam (Sod 3.375 gm/ Dextrose) 115 mls @ 28.75 mls/hr IV Q8H [facility]; Protocol Stop: 06/30/20 00:59 Last Admin: 06/23/20 09:24 Dose: 29 mls/hr Documented by: Levothyroxine Sodium (Levothyroxine Sodium 50 Mcg Tablet) 50 mcg PO DAILYBB [facility] Stop: 07/19/20 06:29 Last Admin: 06/23/20 05:42 Dose: 50 mcg Documented by: Melatonin (Melatonin 3 Mg Tab) 3 mg PO HSZ [facility] Stop: 07/18/20 21:59 Last Admin: 06/22/20 20:51 Dose: 3 mg Documented by: Menthol (Cough Drop (Sugar Free) Dre 24 Dre/1 Box) 1 dre BUCCAL Q8 PRN PRN Reason: sore throat Stop: 07/20/20 15:44 Metoprolol Succinate (Metoprolol Succ 25mg Ext Rel Tab) 25 mg PO DAILY HILARIA Stop: 07/19/20 08:59 Last Admin: 06/23/20 09:20 Dose: Not Given Documented by: Miscellaneous Information (Piperacill/Tazobac Consult Active) 1 ea N/A UD PRN PRN Reason: Consult Stop: 07/19/20 20:13 Nitroglycerin (Nitroglycerin Sl 0.4 Mg/Tab Tab) 0.4 mg SL PRN PRN PRN Reason: non reproduceable chest pain Stop: 07/18/20 16:39 Last Admin: 06/21/20 01:39 Dose: 0.4 mg Documented by: Pantoprazole Sodium (Pantoprazole 40 Mg Tab) 40 mg PO QAM HILARIA Stop: 07/22/20 17:59 Last Admin: 06/23/20 09:14 Dose: 40 mg Documented by: Polysaccharide Iron Complex (Iron Polysaccharide Complex 150 Mg Capsule) 150 mg PO BID HILARIA Stop: 07/18/20 20:59 Last Admin: 06/23/20 09:12 Dose: 150 mg Documented by: Potassium Chloride (Potassium Chloride Crtab 20 Meq Tabcr) 20 meq PO BID HILARIA Stop: 07/22/20 20:59 Last Admin: 06/23/20 09:10 Dose: 20 meq Documented by: Sodium Chloride (Sodium Chloride 0.9% 10ml Flush) 30 ml IV Q24H [facility]ILARIA Stop: 06/23/20 12:01 Last Admin: 06/22/20 11:58 Dose: 30 ml Documented by: Sucralfate (Sucralfate 1 Gm/10 Ml Udc) 1 gm PO ACHS HILARIA Stop: 07/20/20 16:29 Last Admin: 06/23/20 07:40 Dose: 1 gm Documented by: Ticagrelor (Ticagrelor 90 Mg Tab) 90 mg PO BID HILARIA Stop: 07/18/20 20:59 Last Admin: 06/23/20 09:24 Dose: 90 mg Documented by: Trazodone HCl (Trazodone Hcl 50 Mg Tab) 150 mg PO HS HILARIA Stop: 07/18/20 20:59 Last Admin: 06/22/20 20:50 Dose: 150 mg Documented by: Umeclidinium [place] (Umeclidinium [place] 62.5mcg/Blister 7 Puffs/Inhaler) 1 puffs INH DAILY HILARIA Stop: 07/19/20 08:59 Last Admin: 06/23/20 09:25 Dose: 1 puffs Documented by: Vitamin D (Cholecalciferol 1,000 Units 25 Mcg Tab) 2,000 units PO DAILY HILARIA Stop: 07/19/20 08:59 Last Admin: 06/23/20 09:13 Dose: 2,000 units Documented by: Zinc Sulfate (Zinc Sulfate 220 Mg Capsule) 220 mg PO DAILY HILARIA Stop: 07/19/20 08:59 Last Admin: 06/23/20 09:10 Dose: 220 mg Documented by: PG Care Time/CCT Total # of Minutes Spent Total Time Spent with Patient: Total time spent is greater than 50% in coordination of care (as documented) at patient's floor/unit and/or counseling patient: Coding Level of Care Code 86232 Subseq Hosp Care Lvl 3 Diagnoses COVID-19 U07.1 Chest pain R07.9 Lethargy R53.83 Hypoxia R09.02 Black stool K92.1 Pneumonia J18.9 Acute diverticulitis K57.92 Coronary disease I25.119 Associated angina: with unspecified angina Coronary Disease-Associated Artery/Lesion type: [place] artery [place] vs. transplanted heart: [place] heart Congestive heart failure due to cardiomyopathy I50.9; I42.9 HTN (hypertension) I10 Hypertension type: unspecified Elevated troponin R77.8 COPD (chronic obstructive pulmonary disease) J44.9 COPD type: emphysema Anxiety and depression F41.9; F32.9 Hypothyroid E03.9 Hypothyroidism type: unspecified GERD (gastroesophageal reflux disease) K21.9 Hypokalemia E87.6 DVT prophylaxis Z29.9 (1) Coronary disease Associated angina: with unspecified angina Coronary Disease-Associated Artery/Lesion type: [place] artery [place] vs. transplanted heart: [place] heart Qualified Code(s): I25.119 - Atherosclerotic heart disease of [place] coronary artery with unspecified angina pectoris (2) Hypothyroid Hypothyroidism type: unspecified Qualified Code(s): E03.9 - Hypothyroidism, unspecified (3) COPD (chronic obstructive pulmonary disease) COPD type: emphysema (4) HTN (hypertension) Hypertension type: unspecified Qualified Code(s): I10 - Essential (primary) hypertension
[2020-06-23] MEDS: REMDESIVIR 100 MG in SODIUM CHLORIDE 0.9% 230 ML IV SCH (11:58)
[2020-06-23] MEDS: SODIUM CHLORIDE 0.9% 10ML FLUSH IV SCH (11:58)
[2020-06-23] MEDS: ACETAMINOPHEN 325 MG TAB PO PRN (12:19)
--- NOTE | 2020-06-23 12:50 | Cardiology Progress Note ---
Date of Service June 23, 2020 Assessment & Plan (1) Congestive heart failure due to cardiomyopathy: His volume status appears stable although he seems to require a lot of supplemental oxygen. His case is complicated by underlying COPD and viral pneumonia. I would continue his current daily diuretic provided he is slowly improving. Renal function is stable. WIll need to monitor closely for developing pulmonary edema, especially on steroids. Continue metoprolol succinate. I do not think he is ready for any attempt to initiate Pato inhibition or aldosterone antagonism at this point. He does not need to wear the life vest while in the hospital. (2) Coronary disease: Recent anterior NM. Continue BB, atorvastatin,aspirin and Brilinta (3) Elevated troponin: Admission and Anticipated Discharge Date Admission Date: June 18, 2020 Subjective The patient said he was feeling "better". His attitude was improved and he reports "joking" at times. Breathing is stable. Not much ambulation. Fleeting chest pains. Improved appetite. Review of Systems Review of Systems: per HPI Physical Exam Physical Exam: He was alert and conversive today. He answered all questions appropriately. HEENT: Pupils are equal and reactive to light and accommodation. Extraocular movements are intact. The sclerae are anicteric. Surgical scar midline scalp Neuro: Cranial nerves intact Lungs: Normal respiratory effort and respiratory rate. Some diffuse crackles in both lungs. No wheezing Cardiac: Heart demonstrates a regular rate and rhythm. Normal S1 and S2. No murmurs on examination. Chest: No pain to palpation. Pulses: The patient has palpable radial pulses bilaterally that are equal in intensity but diminished. Extremities: There was no evidence of hypoperfusion. There is no cyanosis or clubbing. There is no edema. Skin: I did not appreciate any rashes on examination today. Multiple ecchymoses in both hands and arms. Results & Data ([facility]) Vital Signs (Past 12 Hours) Vital Signs Temp Pulse Pulse Pulse Resp BP Pulse Ox 06/23/20 11:14 36.7 C 75 15 97/75 L 93 06/23/20 10:11 76 06/23/20 07:19 37.0 C 79 23 99/70 L 95 06/23/20 03:59 36.8 C 83 20 88/62 L 97 Laboratory Results Abnormal Lab Results 06/19/20 06/23/20 06/23/20 13:28 06:05 06:05 WBC 16.12 H RBC 3.96 L Hgb 10.9 L Hct 33.3 L MCV 84.1 MCH 27.5 MCHC 32.7 RDW Std Deviation 53.4 H RDW Coeff of Adrien 17.3 H Plt Count 360 MPV 9.7 Immature Gran % (Auto) 0.4 Neut % (Auto) 83.9 Lymph % (Auto) 7.9 [place] % (Auto) 7.5 Eos % (Auto) 0.3 Baso % (Auto) 0.0 Neut # (Auto) 13.52 H Lymph # (Auto) 1.28 [place] # (Auto) 1.21 H Eos # (Auto) 0.05 Baso # (Auto) 0.00 Immature Gran # (Auto) 0.06 H Sodium 142 Potassium 3.5 Chloride 109 H Carbon Dioxide 28 Anion Gap 5.0 BUN 22 H Creatinine 0.99 Est Cr Clr Drug Dosing 78.3 Est GFR ( Amer) 95.5 Est GFR (Non-Af Amer) 82.4 BUN/Creatinine Ratio 22.0 H Glucose 96 Calcium 8.0 L Magnesium 2.1 Total Bilirubin 0.8 AST 35 ALT 61 Alkaline Phosphatase 51 Total Protein 6.0 L Albumin 1.8 L Globulin 4.2 H Albumin/Globulin Ratio 0.4 L Crossmatch See Detail PG Care Time/CCT Total # of Minutes Spent Total Time Spent with Patient: Total time spent is greater than 50% in coordination of care (as documented) at patient's floor/unit and/or counseling patient: Coding Level of Care Code 84533 Subseq Hosp Care Lvl 2 Diagnoses Congestive heart failure due to cardiomyopathy I50.9; I42.9 Coronary disease I25.119 Coronary Disease-Associated Artery/Lesion type: [place] artery [place] vs. transplanted heart: [place] heart Associated angina: with unspecified angina Elevated troponin R77.8 (1) Coronary disease Coronary Disease-Associated Artery/Lesion type: [place] artery [place] vs. transplanted heart: [place] heart Associated angina: with unspecified angina Qualified Code(s): I25.119 - Atherosclerotic heart disease of [place] coronary artery with unspecified angina pectoris
--- NOTE | 2020-06-23 17:52 | XRay Report ---
XR chest 1V portable HISTORY: 60 years-old Male hypoxemia acute hypoxia COMPARISON: Chest radiograph 06/18/2020 TECHNIQUE: Portable AP view the chest FINDINGS: Cardiac silhouette is stable in size. No pneumothorax or large pleural effusion. Electronic devices a re noted projecting over the chest. Multifocal alveolar opacities are again noted which overall have mildly progressed. There is however mildly improved aeration of the lung bases. The bones appear corine sly intact. IMPRESSION: Persistent bilateral alveolar opacities which overall have mildly progressed. There is ho wever mildly improved aeration of the lung bases. ACT 112: Negative or not required by law. The above report was generated using voice recognition software. It may contain grammatical, syntax o r spelling errors. Electronically signed by: Almas Roman M.D. 06/23/2020 5:50 PM
[2020-06-23] MEDS: ATORVASTATIN 40 MG TAB PO SCH (20:51)
[2020-06-23] MEDS: traZODone HCL 50 MG TAB PO SCH (20:56)
[2020-06-23] MEDS: MELATONIN 3 MG TAB PO SCH (20:57)
[2020-06-24] MEDS: PIPERACILLIN/TAZOBACTAM 3.375 GM in DEXTROSE 5% 100 ML IV SCH ×3 (02:30→17:00)
[2020-06-24] MEDS: SUCRALFATE 1 GM/10 ML UDC PO SCH ×4 (08:10→20:46)
[2020-06-24 08:20] LABS: Hematocrit (blood only) 33.2 % (42-52); Hemoglobin 10.9 g/dL (14.0-18.0); Mean Corpuscular Hemoglobin 27.7 pg (25-34); Mean Corpuscular Hgb Conc 32.8 g/dL (32-36); Mean Corpuscular Volume 84.5 fL (80-100); Mean Platelet Volume 9.6 fL (7.4-10.4); Platelet Count 395 K/uL (130-400); RDW Coefficient of Variation 17.3 % (11.5-14.5); RDW Standard Deviation 54.1 fL (36.4-46.3); Red Blood Count 3.93 M/uL (4.7-6.1); White Blood Count 17.65 K/uL (4.8-10.8)
[2020-06-24] MEDS: FUROSEMIDE 40 MG TAB PO SCH (08:32)
[2020-06-24] MEDS: ASCORBIC ACID 500 MG TAB PO SCH (08:33)
[2020-06-24] MEDS: CHOLECALCIFEROL 1,000 UNITS 25 MCG TAB PO SCH (08:33)
[2020-06-24] MEDS: PANTOprazole 40 MG TAB PO SCH (08:34)
[2020-06-24] MEDS: ENOXAPARIN INJ 40 MG/0.4 ML SYR SQ SCH (08:34)
[2020-06-24] MEDS: FOLIC ACID 1 MG TAB PO SCH (08:35)
[2020-06-24] MEDS: LEVOTHYROXINE SODIUM 50 MCG TABLET PO SCH (08:35)
[2020-06-24] MEDS: FAMOTIDINE 20 MG TAB PO SCH (08:35)
[2020-06-24] MEDS: DULoxetine HCL 60 MG CAP PO SCH ×2 (08:36→20:46)
[2020-06-24] MEDS: IRON POLYSACCHARIDE COMPLEX 150 MG CAPSULE PO SCH ×2 (08:36→20:46)
[2020-06-24] MEDS: ZINC SULFATE 220 MG CAPSULE PO SCH (08:37)
[2020-06-24] MEDS: ASPIRIN 81 MG ECTAB PO SCH (08:37)
[2020-06-24] MEDS: POTASSIUM CHLORIDE CRTAB 20 MEQ TABCR PO SCH ×2 (08:37→20:46)
[2020-06-24] MEDS: ARIPiprazole 10 MG TAB PO SCH (08:38)
[2020-06-24] MEDS: UMECLIDINIUM BROMIDE 62.5MCG/BLISTER 7 PUFFS/INHALER INH SCH (08:39)
[2020-06-24] MEDS: DOCUSATE SODIUM 100 MG CAP PO SCH ×2 (08:39→20:40)
[2020-06-24] MEDS: DEXAMETHASONE SOD PHOSPHATE 6 MG in SYRINGE 0 ML IV SCH (08:40)
[2020-06-24] MEDS: METOPROLOL SUCC 25MG EXT REL TAB PO SCH (08:40)
[2020-06-24 08:46] LABS: BUN Creatinine Ratio 16.4 (10-20); Calcium 8.4 mg/dl (8.5-10.1); Creatinine Clr Calc Pharmacy 65.9 ml/min; Est GFR (African American) 77.3; Est GFR (Non-African American) 66.7; Potassium 3.5 mmol/L (3.5-5.1)
[2020-06-24] MEDS: clonazePAM 0.5 MG TAB PO SCH ×2 (08:48→20:46)
[2020-06-24] MEDS: TICAGRELOR 90 MG TAB PO SCH ×2 (08:48→20:46)
--- NOTE | 2020-06-24 11:18 | Cardiology Progress Note ---
Date of Service June 24, 2020 Assessment & Plan (1) Congestive heart failure due to cardiomyopathy: He appears to have a fairly tenuous respiratory situation. At rest he appears comfortable but does require lot of supplemental oxygen. According to the nursing staff he desaturates fairly easily. His x-ray And physical exam is most consistent with viral pneumonia, but he certainly is prone to pulmonary edema and could have an element of heart failure as well. I would agree with increasing his diuretic dose. He will need his electrolytes and renal function monitored closely. Continue metoprolol succinate. I do not think he is ready for any attempt to initiate Pato inhibition or aldosterone antagonism at this point. (2) Coronary disease: Recent anterior NV. Continue BB, atorvastatin,aspirin and Brilinta (3) Elevated troponin: Trending downward. Related to the tail end of his anterior infarct. Admission and Anticipated Discharge Date Admission Date: June 18, 2020 Subjective this morning the patient had no specific complaints. He did report feeling kit ewhat short of breath with certain movements such as getting up for the bedside commode. He denies breathing trouble at rest. He has occasional fleeting chest pains bees. The quite rare and occasionally associated with movement. He claims have a good appetite. He claims be sleeping well. Review of Systems Review of Systems: Per HPI Physical Exam Physical Exam: He was alert and conversive today. He answered all questions appropriately. HEENT: Pupils are equal and reactive to light and accommodation. Extraocular movements are intact. The sclerae are anicteric. Surgical scar midline scalp Neuro: Cranial nerves intact Lungs: Normal respiratory effort and respiratory rate. Some diffuse crackles in both lungs. No wheezing Cardiac: Heart demonstrates a regular rate and rhythm. Normal S1 and S2. No murmurs on examination. Chest: No pain to palpation. Pulses: The patient has palpable radial pulses bilaterally that are equal in intensity but diminished. Extremities: There was no evidence of hypoperfusion. There is no cyanosis or clubbing. There is no edema. Skin: I did not appreciate any rashes on examination today. Multiple ecchymoses in both hands and arms. Results & Data ([facility]) Vital Signs (Past 12 Hours) Vital Signs Temp Pulse Resp BP Pulse Ox 06/24/20 07:47 36.6 C 89 16 96/62 L 90 06/24/20 04:05 93 06/24/20 03:17 36.6 C 85 24 90/56 L 88 L 06/23/20 23:20 36.6 C 86 22 88/60 L 92 Laboratory Results Abnormal Lab Results 06/24/20 06/24/20 08:04 08:04 WBC 17.65 H RBC 3.93 L Hgb 10.9 L Hct 33.2 L MCV 84.5 MCH 27.7 MCHC 32.8 RDW Std Deviation 54.1 H RDW Coeff of Adrien 17.3 H Plt Count 395 MPV 9.6 Sodium 142 Potassium 3.5 Chloride 109 H Carbon Dioxide 28 Anion Gap 5.0 BUN 19 H Creatinine 1.18 Est Cr Clr Drug Dosing 65.9 Est GFR ( Amer) 77.3 Est GFR (Non-Af Amer) 66.7 BUN/Creatinine Ratio 16.4 Glucose 104 H Calcium 8.4 L Diagnostic Findings chest x-ray obtained yesterday reveals multiple airspace opacities In both lungs. PG Care Time/CCT Total # of Minutes Spent Total Time Spent with Patient: Total time spent is greater than 50% in coordination of care (as documented) at patient's floor/unit and/or counseling patient: Coding Level of Care Code 21633 Subseq Hosp Care Lvl 3 Diagnoses Congestive heart failure due to cardiomyopathy I50.9; I42.9 Coronary disease I25.119 Coronary Disease-Associated Artery/Lesion type: [place] artery [place] vs. transplanted heart: [place] heart Associated angina: with unspecified angina Elevated troponin R77.8 (1) Coronary disease Coronary Disease-Associated Artery/Lesion type: [place] artery [place] vs. transplanted heart: [place] heart Associated angina: with unspecified angina Qualified Code(s): I25.119 - Atherosclerotic heart disease of [place] coronary artery with unspecified angina pectoris
--- NOTE | 2020-06-24 13:19 | Hospitalist Progress Note ---
Date of Service June 24, 2020 Assessment & Plan (1) COVID-19: Unsure of onset of symptoms or diagnosis. Patient reports he tested negative prior to going to rehab, but here is positive and hypoxic with viral pneumonitis seen on chest x-ray - Patient was treated with ABX and steroids while at [facility] for COPD exacerbation and CAP -As he is hypoxic here, started Decadron 6 mg IV once daily x10-day course-last day will be 06/28 -completed remdesivir, 5 days Hold off on convalescent plasma given pulmonary edema and EF of 15% he is breathing comfortably on 10L today has some tachypnea but no distress at rest very short of breath on exertion try to wean oxygen as tolerated but today requiring a little more increased Lasix from 20mg to 40mg to promote keeping lungs dry in setting of severe cardiomyopathy (2) Acute diverticulitis: CT abdomen/pelvis performed for acute GI bleeding and left lower quadrant pain With sigmoid diverticulitis seen, no bowel obstruction Pain is now resolved with bowel rest and IV antibiotics -advance diet to heart healthy, low fiber, eating a little bit more today -continue IV Zosyn-start date 06/19-plan to treat for 10 days total, continue Zosyn until at least 2/3 then change to PO plan for Augmentin, start tomorrow no fever, WBC elevated at 17k, could be due to Decadron (3) Congestive heart failure due to cardiomyopathy: EF 16% per [facility] reports. Likely ICM - Patient discharged on LifeVest - Continue lifeVest when discharged, does not need to wear in the hospital - Medication optimization as above - with acute on chronic systolic CHF--> increased Lasix from 20mg to 40mg PO daily increased UO today Cr is stable, K 3.5 recheck labs tomorrow -Appreciate cardiology consultation - Slowly introduce SUZANNE/ARB onto patient as blood pressure can tolerate, too low today Follow I's and O's Continue metoprolol (4) Lethargy: Secondary to Covid-19 most likely--> now much improved ABG c/w hyperventilation, not hypercarbia Also with suspected GI bleeding possibly contributing although this is resolving Is also on clonazepam-PDMP website shows that he takes 1 mg 3 times daily, however discharge medication list from [facility] states 0.5 mg p.o. 3 times daily He received 1 mg here initially but then HELD for lethargy--> restarted scheduled dosing at clonazepam 0.5 mg p.o. twice daily to avoid withdrawal as he was having some anxiety on 06/21 he is alert today, continue the BID dosing schedule (5) Chest pain: Patient presented with left-sided chest pain reminiscent of his previous angina before his STEMI 2 weeks prior to admission Troponin trended down likely from previous STEMI from 3--> 2-->1.5 No evidence of acute coronary syndrome (6) Hypoxia: acute respiratory failure with hypoxia As above, secondary to pulmonary edema and Covid-19 pneumonia as well as COPD exacerbation was improving and now back up to 10L today CXR 06/23 with worsening infiltrates increase Lasix to 40mg to try to keep lungs dry -Continue Decadron for Covid-19 (7) Black stool: Patient had a large black bowel movement on the early afternoon of 06/19 and smaller loose black stool on AM of 06/20 He is on Fe pills prior to admission He complains of left lower quadrant abdominal pain as well which is now known to be from acute diverticulitis-this is improving Continues to have loose dark stools but is on a clear liquids diet and hemoglobin remained stable-this is not likely acute GI bleeding as originally thought He has been in the hospital for recent admission for STEMI and is on dual antiplatelet therapy-high risk for stress ulcer but could be GI bleed from AVM. However seems less likely had a true GI bleed as hemoglobin has gone up Hgb has remained stable, > [address] abd/pel with acute sigmoid diverticulitis -started IV PPI gtt x3 days-now convert to Protonix 40 mg once daily -Also continue Pepcid -Continue Carafate as per GI x2-week course -Okay to restart Lovenox -Continue dual antiplatelet therapy due to recent stent in the LAD -follow CBC daily now and transfuse if hemoglobin drops less than 8-9 given recent STEMI or becomes hemodynamically unstable -Consult GI-appreciated--> holding off on EGD as he has stabilized and high risk for anesthesia (8) Pneumonia: Secondary to Covid-19 as above PCT 0.27, borderline elevated Continue IV Zosyn for diverticulitis as below but do not suspect bacterial pneumonia (9) Coronary disease: Status post recent STEMI with LAD stent-remains chest pain-free since admission - Cardiology consulted- appreciate assistance, 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 With wheezing here and mild COPD exacerbation - Continue albuterol and Umeclidinium -On Decadron for hypoxia with Covid-19 pneumonia (13) Anxiety and depression: Continue current outpatient regime but decrease clonazepam to a lower dose of 0.5mg bid given previous lethargy on higher dose Continue home Abilify, trazodone, duloxetine (14) Hypothyroid: TSH mildly elevated, free T4 also mildly elevated-unclear picture Continue home Synthroid dose for now Repeat TFTs in 2 weeks (15) GERD (gastroesophageal reflux disease): DC IV Protonix for suspected GI bleed and convert back to p.o. Protonix once daily now Continue Pepcid (16) Hypokalemia: Due to IV Lasix use continue potassium chloride 20 mEq p.o. twice daily K is 3.5 again today (17) DVT prophylaxis: Okay to restart Lovenox SQ, continue SCDs Disposition-continued stay in PCU, guarded prognosis, very frail given severe CHF, acute diverticulitis, Covid-19, and acute respiratory failure with hypoxia Came from [facility] rehab, would probably need to return once he is adequately treated anticipate him being here all week Full code Admission and Anticipated Discharge Date Admission Date: June 18, 2020 Subjective patient laying on his right side says his breathing feels the same as yesterday has some dyspnea at rest, has severe dyspnea with minimal exertion increased his Lasix to 40mg this morning, good response, will check labs tomorrow lungs have faint wheezing he is picking at his food, not a great appetite labs today show K 3.5, Cr 1.18, WBC 17k Review of Systems Review of Systems: All systems reviewed & are unremarkable except as noted in Subjective Respiratory: + dyspnea and + dyspnea on exertion; no cough Cardiovascular: no chest pain and no edema Physical Exam Constitutional: well developed, + thin, + frail appearing and comfortable; no acute distress Neck: trachea midline, no thyromegaly Respiratory: + tachypneic; no respiratory distress and no labored breathing Auscultation: + wheezes (faint, bilateral) Cardiovascular: RRR, no murmur, no edema Gastrointestinal (Abdomen): normal bowel sounds, soft, nontender, no hepatosplenomegaly Musculoskeletal: no cyanosis or clubbing, extremities motor strength 5/5 Skin: no rashes, warm and dry Neurologic: patellar DTR's 2+ bilat, sensation intact and PERRL, EOMI, accommodation nl, no face palsy, no dysarthria Psychiatric: Orientation: alert and oriented x 3 Affect: + flat affect Lymphatic: no cervical or axillary lymphadenopathy Results & Data Results & Data ([facility]) Vital Signs (Past 12 Hours) Vital Signs Temp Pulse Pulse Resp BP BP Pulse Ox 06/24/20 11:28 36.5 C 102 H 16 105/77 90 06/24/20 11:16 82 06/24/20 07:47 36.6 C 89 16 96/62 L 90 06/24/20 04:05 93 06/24/20 03:17 36.6 C 85 24 90/56 L 88 L Laboratory Results Laboratory Results - last 24 hr 06/24/20 06/24/20 08:04 08:04 WBC 17.65 H RBC 3.93 L Hgb 10.9 L Hct 33.2 L MCV 84.5 MCH 27.7 MCHC 32.8 RDW Std Deviation 54.1 H RDW Coeff of Adrien 17.3 H Plt Count 395 MPV 9.6 Sodium 142 Potassium 3.5 Chloride 109 H Carbon Dioxide 28 Anion Gap 5.0 BUN 19 H Creatinine 1.18 Est Cr Clr Drug Dosing 65.9 Est GFR ( Amer) 77.3 Est GFR (Non-Af Amer) 66.7 BUN/Creatinine Ratio 16.4 Glucose 104 H Calcium 8.4 L Medications Administered Current Inpatient Medications Acetaminophen (Acetaminophen 325 Mg Tab) 650 mg PO QID PRN PRN Reason: Pain Stop: 07/18/20 16:39 Last Admin: 06/23/20 12:19 Dose: 650 mg Documented by: Albuterol (Albuterol Hfa 8 Gm Inhaler) 1 puffs INH Q4H PRN PRN Reason: Wheezing Stop: 07/18/20 16:39 Aripiprazole (Aripiprazole 10 Mg Tab) 10 mg PO DAILY HILARIA Stop: 07/19/20 08:59 Last Admin: 06/24/20 08:38 Dose: 10 mg Documented by: Ascorbic Acid (Ascorbic Acid 500 Mg Tab) 500 mg PO DAILY HILARIA Stop: 07/19/20 08:59 Last Admin: 06/24/20 08:33 Dose: 500 mg Documented by: Aspirin (Aspirin 81 Mg Ectab) 81 mg PO DAILY HILARIA Stop: 07/19/20 08:59 Last Admin: 06/24/20 08:37 Dose: 81 mg Documented by: Atorvastatin Calcium (Atorvastatin 40 Mg Tab) 80 mg PO HS HILARIA Stop: 07/18/20 20:59 Last Admin: 06/23/20 20:51 Dose: 80 mg Documented by: Clonazepam (Clonazepam 0.5 Mg Tab) 0.5 mg PO BID HILARIA Stop: 07/21/20 20:59 Last Admin: 06/24/20 08:48 Dose: 0.5 mg Documented by: Docusate Sodium (Docusate Sodium 100 Mg Cap) 100 mg PO BID HILARIA Stop: 07/18/20 20:59 Last Admin: 06/24/20 08:39 Dose: Not Given Documented by: Duloxetine HCl (Duloxetine Hcl 60 Mg Cap) 60 mg PO BID HILARIA Stop: 07/18/20 20:59 Last Admin: 06/24/20 08:36 Dose: 60 mg Documented by: Enoxaparin Sodium (Enoxaparin Inj 40 Mg/0.4 Ml Syr) 40 mg SQ DAILY HILARIA Stop: 07/19/20 08:59 Last Admin: 06/24/20 08:34 Dose: 40 mg Documented by: Famotidine (Famotidine 20 Mg Tab) 20 mg PO DAILY HILARIA Stop: 07/19/20 08:59 Last Admin: 06/24/20 08:35 Dose: 20 mg Documented by: Folic Acid (Folic Acid 1 Mg Tab) 1 mg PO DAILY HILARIA Stop: 07/19/20 08:59 Last Admin: 06/24/20 08:35 Dose: 1 mg Documented by: Furosemide (Furosemide 40 Mg Tab) 40 mg PO DAILY HILARIA Stop: 07/24/20 08:59 Last Admin: 06/24/20 08:32 Dose: 40 mg Documented by: Dexamethasone Sodium Phosphate (6 mg/ Syringe) 1.5 mls @ 1 mls/min IV QAM [facility] Stop: 07/19/20 09:29 Last Admin: 06/24/20 08:40 Dose: 1 mls/min Documented by: Piperacillin Sod/Tazobactam (Sod 3.375 gm/ Dextrose) 115 mls @ 28.75 mls/hr IV Q8H [facility]; Protocol Stop: 06/30/20 00:59 Last Admin: 06/24/20 08:47 Dose: 29 mls/hr Documented by: Levothyroxine Sodium (Levothyroxine Sodium 50 Mcg Tablet) 50 mcg PO DAILYBB [facility] Stop: 07/19/20 06:29 Last Admin: 06/24/20 08:35 Dose: 50 mcg Documented by: Melatonin (Melatonin 3 Mg Tab) 3 mg PO HSZ [facility] Stop: 07/18/20 21:59 Last Admin: 06/23/20 20:57 Dose: 3 mg Documented by: Menthol (Cough Drop (Sugar Free) Dre 24 Dre/1 Box) 1 dre BUCCAL Q8 PRN PRN Reason: sore throat Stop: 07/20/20 15:44 Metoprolol Succinate (Metoprolol Succ 25mg Ext Rel Tab) 25 mg PO DAILY [facility] Stop: 07/19/20 08:59 Last Admin: 06/24/20 08:40 Dose: Not Given Documented by: Miscellaneous Information (Piperacill/Tazobac Consult Active) 1 ea N/A UD PRN PRN Reason: Consult Stop: 07/19/20 20:13 Nitroglycerin (Nitroglycerin Sl 0.4 Mg/Tab Tab) 0.4 mg SL PRN PRN PRN Reason: non reproduceable chest pain Stop: 07/18/20 16:39 Last Admin: 06/21/20 01:39 Dose: 0.4 mg Documented by: Pantoprazole Sodium (Pantoprazole 40 Mg Tab) 40 mg PO QAM [facility] Stop: 07/22/20 17:59 Last Admin: 06/24/20 08:34 Dose: 40 mg Documented by: Polysaccharide Iron Complex (Iron Polysaccharide Complex 150 Mg Capsule) 150 mg PO BID [facility] Stop: 07/18/20 20:59 Last Admin: 06/24/20 08:36 Dose: 150 mg Documented by: Potassium Chloride (Potassium Chloride Crtab 20 Meq Tabcr) 20 meq PO BID HILARIA Stop: 07/22/20 20:59 Last Admin: 06/24/20 08:37 Dose: 20 meq Documented by: Sucralfate (Sucralfate 1 Gm/10 Ml Udc) 1 gm PO ACHS [facility]ILAR[facility] Stop: 07/20/20 16:29 Last Admin: 06/24/20 12:20 Dose: 1 gm Documented by: Ticagrelor (Ticagrelor 90 Mg Tab) 90 mg PO BID HILARIA Stop: 07/18/20 20:59 Last Admin: 06/24/20 08:48 Dose: 90 mg Documented by: Trazodone HCl (Trazodone Hcl 50 Mg Tab) 150 mg PO HS HILARIA Stop: 07/18/20 20:59 Last Admin: 06/23/20 20:56 Dose: 150 mg Documented by: Umeclidinium [place] (Umeclidinium [place] 62.5mcg/Blister 7 Puffs/Inhaler) 1 puffs INH DAILY HILARIA Stop: 07/19/20 08:59 Last Admin: 06/24/20 08:39 Dose: 1 puffs Documented by: Vitamin D (Cholecalciferol 1,000 Units 25 Mcg Tab) 2,000 units PO DAILY HILARIA Stop: 07/19/20 08:59 Last Admin: 06/24/20 08:33 Dose: 2,000 units Documented by: Zinc Sulfate (Zinc Sulfate 220 Mg Capsule) 220 mg PO DAILY HILARIA Stop: 07/19/20 08:59 Last Admin: 06/24/20 08:37 Dose: 220 mg Documented by: PG Care Time/CCT Total # of Minutes Spent Total Time Spent with Patient: Total time spent is greater than 50% in coordination of care (as documented) at patient's floor/unit and/or counseling patient: Coding Level of Care Code 95230 Subseq Hosp Care Lvl 3 Diagnoses COVID-19 U07.1 Acute diverticulitis K57.92 Congestive heart failure due to cardiomyopathy I50.9; I42.9 Lethargy R53.83 Chest pain R07.9 Hypoxia R09.02 Black stool K92.1 Pneumonia J18.9 Coronary disease I25.119 Coronary Disease-Associated Artery/Lesion type: [place] artery [place] vs. transplanted heart: [place] heart Associated angina: with unspecified angina HTN (hypertension) I10 Hypertension type: unspecified Elevated troponin R77.8 COPD (chronic obstructive pulmonary disease) J44.9 COPD type: emphysema Anxiety and depression F41.9; F32.9 Hypothyroid E03.9 Hypothyroidism type: unspecified GERD (gastroesophageal reflux disease) K21.9 Hypokalemia E87.6 DVT prophylaxis Z29.9 (1) Coronary disease Coronary Disease-Associated Artery/Lesion type: [place] artery [place] vs. transplanted heart: [place] heart Associated angina: with unspecified angina Qualified Code(s): I25.119 - Atherosclerotic heart disease of [place] coronary artery with unspecified angina pectoris (2) HTN (hypertension) Hypertension type: unspecified Qualified Code(s): I10 - Essential (primary) hypertension (3) COPD (chronic obstructive pulmonary disease) COPD type: emphysema (4) Hypothyroid Hypothyroidism type: unspecified Qualified Code(s): E03.9 - Hypothyroidism, unspecified
[2020-06-24] MEDS: MELATONIN 3 MG TAB PO SCH (20:46)
[2020-06-24] MEDS: traZODone HCL 50 MG TAB PO SCH (20:46)
[2020-06-24] MEDS: ATORVASTATIN 40 MG TAB PO SCH (20:46)
[2020-06-25] MEDS: PIPERACILLIN/TAZOBACTAM 3.375 GM in DEXTROSE 5% 100 ML IV SCH ×3 (01:17→16:18)
[2020-06-25] MEDS ORDERED: IPRATROPIUM BROMIDE NEB SOLN 0.02% 2.5 ML VIAL ONE (02:43)
[2020-06-25] MEDS ORDERED: ALBUT/IPRATROP 3MG/0.5MG NEB 3 ML VIAL ONE (02:44)
[2020-06-25] MEDS: LEVOTHYROXINE SODIUM 50 MCG TABLET PO SCH (06:18)
[2020-06-25] MEDS ORDERED: ALBUT/IPRATROP 3MG/0.5MG NEB 3 ML VIAL NEB SCH (07:00)
[2020-06-25] MEDS: PANTOprazole 40 MG TAB PO SCH (08:15)
[2020-06-25] MEDS: ASPIRIN 81 MG ECTAB PO SCH (08:15)
[2020-06-25] MEDS: IRON POLYSACCHARIDE COMPLEX 150 MG CAPSULE PO SCH ×2 (08:15→20:26)
[2020-06-25] MEDS: FAMOTIDINE 20 MG TAB PO SCH (08:15)
[2020-06-25] MEDS: ASCORBIC ACID 500 MG TAB PO SCH (08:15)
[2020-06-25] MEDS: FOLIC ACID 1 MG TAB PO SCH (08:15)
[2020-06-25] MEDS: SUCRALFATE 1 GM/10 ML UDC PO SCH ×4 (08:15→20:26)
[2020-06-25] MEDS: ZINC SULFATE 220 MG CAPSULE PO SCH (08:16)
[2020-06-25] MEDS: METOPROLOL SUCC 25MG EXT REL TAB PO SCH (08:16)
[2020-06-25] MEDS: CHOLECALCIFEROL 1,000 UNITS 25 MCG TAB PO SCH (08:16)
[2020-06-25] MEDS: DEXAMETHASONE SOD PHOSPHATE 6 MG in SYRINGE 0 ML IV SCH (08:16)
[2020-06-25] MEDS: ARIPiprazole 10 MG TAB PO SCH (08:16)
[2020-06-25] MEDS: FUROSEMIDE 40 MG TAB PO SCH (08:16)
[2020-06-25] MEDS: DOCUSATE SODIUM 100 MG CAP PO SCH ×2 (08:17→20:26)
[2020-06-25] MEDS: DULoxetine HCL 60 MG CAP PO SCH ×2 (08:17→20:26)
[2020-06-25] MEDS: UMECLIDINIUM BROMIDE 62.5MCG/BLISTER 7 PUFFS/INHALER INH SCH (08:17)
[2020-06-25] MEDS: POTASSIUM CHLORIDE CRTAB 20 MEQ TABCR PO SCH ×2 (08:17→20:26)
[2020-06-25] MEDS: ENOXAPARIN INJ 40 MG/0.4 ML SYR SQ SCH (08:18)
[2020-06-25] MEDS: clonazePAM 0.5 MG TAB PO SCH ×2 (08:22→20:26)
[2020-06-25] MEDS: TICAGRELOR 90 MG TAB PO SCH ×2 (08:22→20:26)
[2020-06-25 08:26] LABS: Basophils # (auto) 0.01 K/uL (0-0.2); Basophils % (auto) 0.1 %; Eosinophils % (auto) 0.6 %; Hematocrit (blood only) 32.1 % (42-52); Hemoglobin 10.7 g/dL (14.0-18.0); Immature Granulocytes # (auto) 0.04 K/uL (0.00-0.02); Immature Granulocytes % (auto) 0.2 %; Lymphocytes # (auto) 1.29 K/uL (1.2-3.4); Lymphocytes % (auto) 7.2 %; Mean Corpuscular Hgb Conc 33.3 g/dL (32-36); Mean Platelet Volume 9.6 fL (7.4-10.4); Monocytes # (auto) 1.03 K/uL (0.11-0.59); Monocytes % (auto) 5.7 %; Neutrophils # (auto) 15.45 K/uL (1.4-6.5); Neutrophils % (auto) 86.2 %; Platelet Count 467 K/uL (130-400); RDW Coefficient of Variation 17.5 % (11.5-14.5); RDW Standard Deviation 54.5 fL (36.4-46.3); Red Blood Count 3.82 M/uL (4.7-6.1); White Blood Count 17.92 K/uL (4.8-10.8)
[2020-06-25 08:44] LABS: INR 1.1 (0.9-1.1); Partial Thromboplastin Time 26.7 Seconds (21.0-31.0); Prothrombin Time 11.1 Seconds (9.0-12.0)
[2020-06-25 08:46] LABS: BUN Creatinine Ratio 17.9 (10-20); Calcium 8.8 mg/dl (8.5-10.1); Creatinine Clr Calc Pharmacy 67.9 ml/min; Est GFR (African American) 78.9; Est GFR (Non-African American) 68.1; Potassium 3.4 mmol/L (3.5-5.1)
[2020-06-25 08:51] LABS: Ferritin 213.8 ng/ml (8-388); Phosphorus 3.2 mg/dl (2.5-4.9)
[2020-06-25 08:52] LABS: D Dimer 2700 ug/L FEU (0-500)
--- NOTE | 2020-06-25 09:20 | Hospitalist Progress Note ---
Date of Service June 25, 2020 Assessment & Plan (1) COVID-19: Unsure of onset of symptoms or diagnosis. Patient reports he tested negative prior to going to rehab, but here is positive and hypoxic with viral pneumonitis seen on chest x-ray - Patient was treated with ABX and steroids while at [facility] for COPD exacerbation and CAP -As he is hypoxic here, started Decadron 6 mg IV once daily x10-day course-last day will be 06/28 -completed remdesivir, 5 days Hold off on convalescent plasma given pulmonary edema and EF of 15% he was placed on Vapotherm overnight, he is stable on 30L 70% no distress continue Lasix 40mg daily to keep lungs dry discussed with Dr. Harvey today, he feels his hypoxia is due to worsening COVID suggests we can give extra Lasix IV if needed to keep lungs dry (2) Acute diverticulitis: CT abdomen/pelvis performed for acute GI bleeding and left lower quadrant pain With sigmoid diverticulitis seen, no bowel obstruction Pain is now resolved with bowel rest and IV antibiotics -advance diet to heart healthy, low fiber, eating a little bit more today -continue IV Zosyn-start date 06/19-plan to treat for 10 days total, continue Zosyn for now since respiratory status worse no fever, WBC still elevated at 17k, could be due to Decadron (3) Congestive heart failure due to cardiomyopathy: EF 16% per [facility] reports. Likely ICM - Patient discharged on LifeVest - Continue lifeVest when discharged, does not need to wear in the hospital - Medication optimization as above - with acute on chronic systolic CHF--> increased Lasix from 20mg to 40mg PO daily increased UO today Cr is 1.1 and K is 3.4 -Appreciate cardiology consultation - Slowly introduce SUZANNE/ARB onto patient as blood pressure can tolerate, too low today Follow I's and O's Continue metoprolol can give extra Lasix IV if needed (4) Lethargy: Secondary to Covid-19 most likely--> now much improved ABG c/w hyperventilation, not hypercarbia Also with suspected GI bleeding possibly contributing although this is resolving Is also on clonazepam-PDMP website shows that he takes 1 mg 3 times daily, however discharge medication list from [facility] states 0.5 mg p.o. 3 times daily He received 1 mg here initially but then HELD for lethargy--> restarted scheduled dosing at clonazepam 0.5 mg p.o. twice daily to avoid withdrawal as he was having some anxiety on 06/21 he is alert today, continue the BID dosing schedule (5) Chest pain: Patient presented with left-sided chest pain reminiscent of his previous a ngina before his STEMI 2 weeks prior to admission Troponin trended down likely from previous STEMI from 3--> 2-->1.5 No evidence of acute coronary syndrome (6) Hypoxia: acute respiratory failure with hypoxia As above, secondary to pulmonary edema and Covid-19 pneumonia as well as COPD exacerbation getting a little worse today, on Vapotherm CXR 06/23 with worsening infiltrates increased Lasix to 40mg to try to keep lungs dry -Continue Decadron for Covid-19 (7) Black stool: Patient had a large black bowel movement on the early afternoon of 06/19 and smaller loose black stool on AM of 06/20 He is on Fe pills prior to admission He complains of left lower quadrant abdominal pain as well which is now known to be from acute diverticulitis-this is improving Continues to have loose dark stools but is on a clear liquids diet and hemoglobin remained stable-this is not likely acute GI bleeding as originally t ana He has been in the hospital for recent admission for STEMI and is on dual antiplatelet therapy-high risk for stress ulcer but could be GI bleed from AVM. However seems less likely had a true GI bleed as hemoglobin has gone up Hgb has remained stable, > [address] abd/pel with acute sigmoid diverticulitis -started IV PPI gtt x3 days-now convert to Protonix 40 mg once daily -Also continue Pepcid -Continue Carafate as per GI x2-week course -Okay to restart Lovenox -Continue dual antiplatelet therapy due to recent stent in the LAD -follow CBC daily now and transfuse if hemoglobin drops less than 8-9 given recent STEMI or becomes hemodynamically unstable -Consult GI-appreciated--> holding off on EGD as he has stabilized and high risk for anesthesia (8) Pneumonia: Secondary to Covid-19 as above PCT 0.27, borderline elevated Continue IV Zosyn for diverticulitis as below but do not suspect bacterial pneumonia (9) Coronary disease: Status post recent STEMI with LAD stent-remains chest pain-free since admission - Cardiology consulted- appreciate assistance, no current plans to go to offset label rewinder - Continue DAPT - Continue BB as patient remains hemodynamically stable and no evidence of worsening failure - Continue high dose statin (10) HTN (hypertension): Blood pressures chronically low likely secondary to severe systolic dysfunction Continue metoprolol, Lasix (11) Elevated troponin: 3 on admission and trending down to 1.5, likely trending downward from recent STEMI and not a new acute coronary syndrome (12) COPD (chronic obstructive pulmonary disease): As above Patient recently stopped smoking, smoked 1-5 cigarettes per day for 40 years. With wheezing here and mild COPD exacerbation - Continue albuterol and Umeclidinium -On Decadron for hypoxia with Covid-19 pneumonia (13) Anxiety and depression: Continue current outpatient regime but decrease clonazepam to a lower dose of 0.5mg bid given previous lethargy on higher dose Continue home Abilify, trazodone, duloxetine (14) Hypothyroid: TSH mildly elevated, free T4 also mildly elevated-unclear picture Continue home Synthroid dose for now Repeat TFTs in 2 weeks (15) GERD (gastroesophageal reflux disease): DC IV Protonix for suspected GI bleed and convert back to p.o. Protonix once daily now Continue Pepcid (16) Hypokalemia: Due to IV Lasix use continue potassium chloride 20 mEq p.o. twice daily K is 3.5 again today (17) DVT prophylaxis: Okay to restart Lovenox SQ, continue SCDs Disposition-continued stay in PCU, guarded prognosis, very frail given severe CHF, acute diverticulitis, Covid-19, and acute respiratory failure with hypoxia Came from [facility] rehab, would probably need to return once he is adequately treated anticipate him being here all week Full code Admission and Anticipated Discharge Date Admission Date: June 18, 2020 Subjective patient doing worse today, requiring 30L and 90% FiO2 on vapotherm RR 20-30, does not appear to be in distress, continues to lay on his right side BP too low for metoprolol in the 80-90s systolic, gave Lasix 40mg PO this morning will repeat CXR to assess lung arreguin, diminished breath sounds and crackles in bases on exam discussed with Dr. Harvey, his impression is that respiratory status is due to viral pneumonia hold off on dobutamine, can give another dose of Lasix IV this afternoon as needed reviewed labs, WBC 17k, Hb 10, D dimer 2700, K 3.4, Cr 1.16, ferritin 213 and CK 51 Review of Systems Review of Systems: All systems reviewed & are unremarkable except as noted in Subjective Constitutional: + fatigue and + weakness; no fever, no chills and no sweats Respiratory: + cough, + dyspnea and + dyspnea on exertion Cardiovascular: + dyspnea and + dyspnea on exertion; no chest pain, no palpit ations, no syncope and no edema Gastrointestinal: + early satiety; no abdominal pain, no nausea, no vomiting, no constipation and no diarrhea/loose stools Physical Exam Constitutional: well developed, + thin, + frail appearing and comfortable; no acute distress Neck: trachea midline, no thyromegaly Respiratory: normal respiratory effort, lungs clear to auscultation + tachypneic; no respiratory distress and no labored breathing Auscultation: + wheezes (faint, bilateral) Cardiovascular: RRR, no murmur, no edema Gastrointestinal (Abdomen): normal bowel sounds, soft, nontender, no hepatosplenomegaly Musculoskeletal: no cyanosis or clubbing, extremities motor strength 5/5 Skin: no rashes, warm and dry Neurologic: patellar DTR's 2+ bilat, sensation intact and PERRL, EOMI, accommodation nl, no face palsy, no dysarthria Psychiatric: Orientation: alert and oriented x 3 Affect: + flat affect Lymphatic: no cervical or axillary lymphadenopathy Results & Data Results & Data ([facility]) Vital Signs (Past 12 Hours) Vital Signs Temp Pulse Pulse Resp BP Pulse Ox 06/25/20 07:20 96 H 22 93 06/25/20 07:18 96 H 22 93 06/25/20 07:04 36.6 C 90 30 H 90/63 L 92 06/25/20 03:52 36.6 C 90 24 96/66 L 94 06/25/20 02:47 85 29 H 94 06/25/20 02:05 88 30 H 94 06/24/20 23:48 37.4 C 82 22 88/50 L 92 Laboratory Results Laboratory Results - last 24 hr 06/25/20 06/25/20 06/25/20 07:59 07:59 07:59 WBC 17.92 H RBC 3.82 L Hgb 10.7 L Hct 32.1 L MCV 84.0 MCH 28.0 MCHC 33.3 RDW Std Deviation 54.5 H RDW Coeff of Adrien 17.5 H Plt Count 467 H MPV 9.6 Immature Gran % (Auto) 0.2 Neut % (Auto) 86.2 Lymph % (Auto) 7.2 [place] % (Auto) 5.7 Eos % (Auto) 0.6 Baso % (Auto) 0.1 Neut # (Auto) 15.45 H Lymph # (Auto) 1.29 [place] # (Auto) 1.03 H Eos # (Auto) 0.10 Baso # (Auto) 0.01 Immature Gran # (Auto) 0.04 H PT 11.1 INR 1.1 APTT 26.7 PTT Ratio 1.0 D-Dimer 2700 H* Sodium 143 Potassium 3.4 L Chloride 109 H Carbon Dioxide 27 Anion Gap 7.0 BUN 21 H Creatinine 1.16 Est Cr Clr Drug Dosing 67.9 Est GFR ( Amer) 78.9 Est GFR (Non-Af Amer) 68.1 BUN/Creatinine Ratio 17.9 Glucose 103 H Calcium 8.8 Phosphorus 3.2 Magnesium 2.0 Ferritin 213.8 Total Creatine Kinase 51 Procalcitonin 06/25/20 07:59 WBC RBC Hgb Hct MCV MCH MCHC RDW Std Deviation RDW Coeff of Adrien Plt Count MPV Immature Gran % (Auto) Neut % (Auto) Lymph % (Auto) [place] % (Auto) Eos % (Auto) Baso % (Auto) Neut # (Auto) Lymph # (Auto) [place] # (Auto) Eos # (Auto) Baso # (Auto) Immature Gran # (Auto) PT INR APTT PTT Ratio D-Dimer Sodium Potassium Chloride Carbon Dioxide Anion Gap BUN Creatinine Est Cr Clr Drug Dosing Est GFR ( Amer) Est GFR (Non-Af Amer) BUN/Creatinine Ratio Glucose Calcium Phosphorus Magnesium Ferritin Total Creatine Kinase Procalcitonin Pending Medications Administered Current Inpatient Medications Acetaminophen (Acetaminophen 325 Mg Tab) 650 mg PO QID PRN PRN Reason: Pain Stop: 07/18/20 16:39 Last Admin: 06/23/20 12:19 Dose: 650 mg Documented by: Albuterol (Albuterol Hfa 8 Gm Inhaler) 1 puffs INH Q4H PRN PRN Reason: Wheezing Stop: 07/18/20 16:39 Albuterol (Albut/Ipratrop 3mg/0.5mg Neb 3 Ml Vial) 3 ml NEB QIDR HILARIA Stop: 07/25/20 06:59 Last Admin: 06/25/20 07:17 Dose: 3 ml Documented by: Aripiprazole (Aripiprazole 10 Mg Tab) 10 mg PO DAILY HILARIA Stop: 07/19/20 08:59 Last Admin: 06/25/20 08:16 Dose: 10 mg Documented by: Ascorbic Acid (Ascorbic Acid 500 Mg Tab) 500 mg PO DAILY HILARIA Stop: 07/19/20 08:59 Last Admin: 06/25/20 08:15 Dose: 500 mg Documented by: Aspirin (Aspirin 81 Mg Ectab) 81 mg PO DAILY HILARIA Stop: 07/19/20 08:59 Last Admin: 06/25/20 08:15 Dose: 81 mg Documented by: Atorvastatin Calcium (Atorvastatin 40 Mg Tab) 80 mg PO HS HILARIA Stop: 07/18/20 20:59 Last Admin: 06/24/20 20:46 Dose: 80 mg Documented by: Clonazepam (Clonazepam 0.5 Mg Tab) 0.5 mg PO BID HILARIA Stop: 07/21/20 20:59 Last Admin: 06/25/20 08:22 Dose: 0.5 mg Documented by: Docusate Sodium (Docusate Sodium 100 Mg Cap) 100 mg PO BID HILARIA Stop: 07/18/20 20:59 Last Admin: 06/25/20 08:17 Dose: 100 mg Documented by: Duloxetine HCl (Duloxetine Hcl 60 Mg Cap) 60 mg PO BID HILARIA Stop: 07/18/20 20:59 Last Admin: 06/25/20 08:17 Dose: 60 mg Documented by: Enoxaparin Sodium (Enoxaparin Inj 40 Mg/0.4 Ml Syr) 40 mg SQ DAILY HILARIA Stop: 07/19/20 08:59 Last Admin: 06/25/20 08:18 Dose: 40 mg Documented by: Famotidine (Famotidine 20 Mg Tab) 20 mg PO DAILY HILARIA Stop: 07/19/20 08:59 Last Admin: 06/25/20 08:15 Dose: 20 mg Documented by: Folic Acid (Folic Acid 1 Mg Tab) 1 mg PO DAILY HLIARIA Stop: 07/19/20 08:59 Last Admin: 06/25/20 08:15 Dose: 1 mg Documented by: Furosemide (Furosemide 40 Mg Tab) 40 mg PO DAILY [facility] Stop: 07/24/20 08:59 Last Admin: 06/25/20 08:16 Dose: 40 mg Documented by: Dexamethasone Sodium Phosphate (6 mg/ Syringe) 1.5 mls @ 1 mls/min IV QAM [facility] Stop: 07/19/20 09:29 Last Admin: 06/25/20 08:16 Dose: 1 mls/min Documented by: Piperacillin Sod/Tazobactam (Sod 3.375 gm/ Dextrose) 115 mls @ 28.75 mls/hr IV Q8H [facility]; Protocol Stop: 06/30/20 00:59 Last Admin: 06/25/20 08:22 Dose: 28.8 mls/hr Documented by: Levothyroxine Sodium (Levothyroxine Sodium 50 Mcg Tablet) 50 mcg PO DAILYBB [facility] Stop: 07/19/20 06:29 Last Admin: 06/25/20 06:18 Dose: 50 mcg Documented by: Melatonin (Melatonin 3 Mg Tab) 3 mg PO HSZ [facility] Stop: 07/18/20 21:59 Last Admin: 06/24/20 20:46 Dose: 3 mg Documented by: Menthol (Cough Drop (Sugar Free) Dre 24 Dre/1 Box) 1 dre BUCCAL Q8 PRN PRN Reason: sore throat Stop: 07/20/20 15:44 Metoprolol Succinate (Metoprolol Succ 25mg Ext Rel Tab) 25 mg PO DAILY [facility] Stop: 07/19/20 08:59 Last Admin: 06/25/20 08:16 Dose: Not Given Documented by: Miscellaneous Information (Piperacill/Tazobac Consult Active) 1 ea N/A UD PRN PRN Reason: Consult Stop: 07/19/20 20:13 Nitroglycerin (Nitroglycerin Sl 0.4 Mg/Tab Tab) 0.4 mg SL PRN PRN PRN Reason: non reproduceable chest pain Stop: 07/18/20 16:39 Last Admin: 06/21/20 01:39 Dose: 0.4 mg Documented by: Pantoprazole Sodium (Pantoprazole 40 Mg Tab) 40 mg PO QAM [facility] Stop: 07/22/20 17:59 Last Admin: 06/25/20 08:15 Dose: 40 mg Documented by: Polysaccharide Iron Complex (Iron Polysaccharide Complex 150 Mg Capsule) 150 mg PO BID HILARIA Stop: 07/18/20 20:59 Last Admin: 06/25/20 08:15 Dose: 150 mg Documented by: Potassium Chloride (Potassium Chloride Crtab 20 Meq Tabcr) 20 meq PO BID HILARIA Stop: 07/22/20 20:59 Last Admin: 06/25/20 08:17 Dose: 20 meq Documented by: Sucralfate (Sucralfate 1 Gm/10 Ml Udc) 1 gm PO ACHS HILARIA Stop: 07/20/20 16:29 Last Admin: 06/25/20 08:15 Dose: 1 gm Documented by: Ticagrelor (Ticagrelor 90 Mg Tab) 90 mg PO BID HILARIA Stop: 07/18/20 20:59 Last Admin: 06/25/20 08:22 Dose: 90 mg Documented by: Trazodone HCl (Trazodone Hcl 50 Mg Tab) 150 mg PO HS HILARIA Stop: 07/18/20 20:59 Last Admin: 06/24/20 20:46 Dose: 150 mg Documented by: Umeclidinium [place] (Umeclidinium [place] 62.5mcg/Blister 7 Puffs/Inhaler) 1 puffs INH DAILY HILARIA Stop: 07/19/20 08:59 Last Admin: 06/25/20 08:17 Dose: 1 puffs Documented by: Vitamin D (Cholecalciferol 1,000 Units 25 Mcg Tab) 2,000 units PO DAILY HILARIA Stop: 07/19/20 08:59 Last Admin: 06/25/20 08:16 Dose: 2,000 units Documented by: Zinc Sulfate (Zinc Sulfate 220 Mg Capsule) 220 mg PO DAILY HILARIA Stop: 07/19/20 08:59 Last Admin: 06/25/20 08:16 Dose: 220 mg Documented by: PG Care Time/CCT Total # of Minutes Spent Total Time Spent with Patient: Total time spent is greater than 50% in coordination of care (as documented) at patient's floor/unit and/or counseling patient: Coding Level of Care Code 67428 Subseq Hosp Care Lvl 3 Diagnoses COVID-19 U07.1 Acute diverticulitis K57.92 Congestive heart failure due to cardiomyopathy I50.9; I42.9 Lethargy R53.83 Chest pain R07.9 Hypoxia R09.02 Black stool K92.1 Pneumonia J18.9 Coronary disease I25.119 Associated angina: with unspecified angina Coronary Disease-Associated Artery/Lesion type: [place] artery [place] vs. transplanted heart: [place] heart HTN (hypertension) I10 Hypertension type: unspecified Elevated troponin R77.8 COPD (chronic obstructive pulmonary disease) J44.9 COPD type: emphysema Anxiety and depression F41.9; F32.9 Hypothyroid E03.9 Hypothyroidism type: unspecified GERD (gastroesophageal reflux disease) K21.9 Hypokalemia E87.6 DVT prophylaxis Z29.9 (1) Coronary disease Associated angina: with unspecified angina Coronary Disease-Associated Artery/Lesion type: [place] artery [place] vs. transplanted heart: [place] heart Qualified Code(s): I25.119 - Atherosclerotic heart disease of [place] coronary artery with unspecified angina pectoris (2) Hypothyroid Hypothyroidism type: unspecified Qualified Code(s): E03.9 - Hypothyroidism, unspecified (3) COPD (chronic obstructive pulmonary disease) COPD type: emphysema (4) HTN (hypertension) Hypertension type: unspecified Qualified Code(s): I10 - Essential (primary) hypertension
--- NOTE | 2020-06-25 09:26 | Cardiology Progress Note ---
Date of Service June 25, 2020 Assessment & Plan (1) Congestive heart failure due to cardiomyopathy: He appears to have a fairly tenuous respiratory situation. At rest he appears comfortable but does require lot of supplemental oxygen. My impression is that this represents worsening viral pneumonia. He certainly is at risk of pulmonary edema given his known ischemic cardiomyopathy. However, he diuresed slightly yesterday and is probably net negative with respect to fluid balance since admission. I think his chest x-ray and lung examination are more consistent with pneumonia than pulmonary edema. Also, he appears to prefer lying flat in bed rather than sitting up which also speaks against pulmonary edema. However, we should strive for a net negative fluid balance. His renal function and electrolytes appear normal. He did receive his oral diuretic but 1 hour ago. We could probably Re dose and later in the day to try to reduce his risk of pulmonary edema. His blood pressure is lower today and some of his medications are being held. If he requires blood pressure support dopamine would be a reasonable choice. Phenylephrine would also be reasonable although with his severely reduced LV function we would have to be careful about decompensation. (2) Coronary disease: Recent anterior IA. Continue BB, atorvastatin,aspirin and Brilinta ( Beta-valeriy currently held due to relative hypotension.) (3) Elevated troponin: Admission and Anticipated Discharge Date Admission Date: June 18, 2020 Subjective This morning the patient is having more difficulty breathing. He states that when he is quiet and at rest he feels fairly comfortable, but with minimal activity he has dyspnea. his appetite has been poor this morning. He has not been out of bed. He had some mild epigastric pain that was fairly fleeting earlier today. Review of Systems Review of Systems: Per HPI Physical Exam Physical Exam: He was alert and conversive today. He answered all questions appropriately. using high-flow oxygen. HEENT: Pupils are equal and reactive to light and accommodation. Extraocular movements are intact. The sclerae are anicteric. Surgical scar midline scalp Neuro: Cranial nerves intact Lungs: Mildly increased work of breathing. Diffuse crackles to both lung arreguin. Some expiratory wheezing. Cardiac: Heart demonstrates a regular Rhythm and normal rate. Normal S1 and S2. No murmurs on examination. Chest: No pain to palpation. Abdomen: Soft. Nontender. Pulses: The patient has palpable radial pulses bilaterally that are equal in intensity but diminished. Extremities: There was no evidence of hypoperfusion. There is no cyanosis or clubbing. There is no edema. Skin: I did not appreciate any rashes on examination today. Multiple ecchymoses in both hands and arms. Results & Data ([facility]) Vital Signs (Past 12 Hours) Vital Signs Temp Pulse Pulse Resp BP Pulse Ox 06/25/20 07:20 96 H 22 93 06/25/20 07:18 96 H 22 93 06/25/20 07:04 36.6 C 90 30 H 90/63 L 92 06/25/20 03:52 36.6 C 90 24 96/66 L 94 06/25/20 02:47 85 29 H 94 06/25/20 02:05 88 30 H 94 06/24/20 23:48 37.4 C 82 22 88/50 L 92 Laboratory Results Abnormal Lab Results 06/25/20 06/25/20 06/25/20 07:59 07:59 07:59 WBC 17.92 H RBC 3.82 L Hgb 10.7 L Hct 32.1 L MCV 84.0 MCH 28.0 MCHC 33.3 RDW Std Deviation 54.5 H RDW Coeff of Adrien 17.5 H Plt Count 467 H MPV 9.6 Immature Gran % (Auto) 0.2 Neut % (Auto) 86.2 Lymph % (Auto) 7.2 [place] % (Auto) 5.7 Eos % (Auto) 0.6 Baso % (Auto) 0.1 Neut # (Auto) 15.45 H Lymph # (Auto) 1.29 [place] # (Auto) 1.03 H Eos # (Auto) 0.10 Baso # (Auto) 0.01 Immature Gran # (Auto) 0.04 H PT 11.1 INR 1.1 APTT 26.7 PTT Ratio 1.0 D-Dimer 2700 H* Sodium 143 Potassium 3.4 L Chloride 109 H Carbon Dioxide 27 Anion Gap 7.0 BUN 21 H Creatinine 1.16 Est Cr Clr Drug Dosing 67.9 Est GFR ( Amer) 78.9 Est GFR (Non-Af Amer) 68.1 BUN/Creatinine Ratio 17.9 Glucose 103 H Calcium 8.8 Phosphorus 3.2 Magnesium 2.0 Ferritin 213.8 Total Creatine Kinase 51 ECG Additional Comments: Review of the telemetry reveals sinus tachycardia. No other significant arrhythmias. PG Care Time/CCT Total # of Minutes Spent Total Time Spent with Patient: Total time spent is greater than 50% in coordination of care (as documented) at patient's floor/unit and/or counseling patient: Coding Level of Care Code 06047 Subseq Hosp Care Lvl 3 Diagnoses Congestive heart failure due to cardiomyopathy I50.9; I42.9 Coronary disease I25.119 Coronary Disease-Associated Artery/Lesion type: [place] artery [place] vs. transplanted heart: [place] heart Associated angina: with unspecified angina Elevated troponin R77.8 (1) Coronary disease Coronary Disease-Associated Artery/Lesion type: [place] artery [place] vs. transplanted heart: [place] heart Associated angina: with unspecified angina Qualified Code(s): I25.119 - Atherosclerotic heart disease of [place] coronary artery with unspecified angina pectoris
--- NOTE | 2020-06-25 10:18 | XRay Report ---
XR chest 1V portable HISTORY: 60 years-old Male worsening hypoxia acute hypoxia COMPARISON: Chest radiograph 06/23/2020 TECHNIQUE: Portable AP view of the chest FINDINGS: Cardiac mediastinal and hilar silhouettes are unchanged. Progressively worsened extensive bilateral a irspace opacities. No pneumothorax. Probable trace pleural effusions. Degenerative changes of the ashlyn ulders and spine. IMPRESSION: 1. Progressively worsened extensive bilateral airspace opacities suggestive of pneumonia versus pulmo nary edema. 2. Probable trace pleural effusions. ACT 112: Negative or not required by law. The above report was generated using voice recognition software. It may contain grammatical, syntax o r spelling errors. Electronically signed by: Almas Roman M.D. 06/25/2020 10:17 AM
[2020-06-25] MEDS ORDERED: ALBUT/IPRATROP 3MG/0.5MG NEB 3 ML VIAL NEB PRN (10:22)
[2020-06-25] MEDS: ATORVASTATIN 40 MG TAB PO SCH (20:26)
[2020-06-25] MEDS: traZODone HCL 50 MG TAB PO SCH (20:26)
[2020-06-25] MEDS: MELATONIN 3 MG TAB PO SCH (20:26)
[2020-06-26] MEDS: PIPERACILLIN/TAZOBACTAM 3.375 GM in DEXTROSE 5% 100 ML IV SCH ×2 (04:18→09:59)
[2020-06-26] MEDS: LEVOTHYROXINE SODIUM 50 MCG TABLET PO SCH (05:43)
[2020-06-26] MEDS: DOCUSATE SODIUM 100 MG CAP PO SCH ×2 (07:34→20:16)
[2020-06-26] MEDS: IRON POLYSACCHARIDE COMPLEX 150 MG CAPSULE PO SCH ×2 (07:34→20:16)
[2020-06-26] MEDS: DEXAMETHASONE SOD PHOSPHATE 6 MG in SYRINGE 0 ML IV SCH (07:34)
[2020-06-26] MEDS: POTASSIUM CHLORIDE CRTAB 20 MEQ TABCR PO SCH ×3 (07:34→20:16)
[2020-06-26] MEDS: DULoxetine HCL 60 MG CAP PO SCH ×2 (07:35→20:16)
[2020-06-26] MEDS: UMECLIDINIUM BROMIDE 62.5MCG/BLISTER 7 PUFFS/INHALER INH SCH (07:35)
[2020-06-26] MEDS: FUROSEMIDE 40 MG TAB PO SCH (07:36)
[2020-06-26] MEDS: ASPIRIN 81 MG ECTAB PO SCH (07:36)
[2020-06-26] MEDS: CHOLECALCIFEROL 1,000 UNITS 25 MCG TAB PO SCH (07:36)
[2020-06-26] MEDS: ZINC SULFATE 220 MG CAPSULE PO SCH (07:37)
[2020-06-26] MEDS: ENOXAPARIN INJ 40 MG/0.4 ML SYR SQ SCH (07:37)
[2020-06-26] MEDS: ASCORBIC ACID 500 MG TAB PO SCH (07:37)
[2020-06-26] MEDS: PANTOprazole 40 MG TAB PO SCH (07:37)
[2020-06-26] MEDS: ARIPiprazole 10 MG TAB PO SCH (07:37)
[2020-06-26] MEDS: FAMOTIDINE 20 MG TAB PO SCH (07:37)
[2020-06-26] MEDS: FOLIC ACID 1 MG TAB PO SCH (07:37)
[2020-06-26] MEDS: SUCRALFATE 1 GM/10 ML UDC PO SCH ×4 (07:38→20:16)
[2020-06-26] MEDS: METOPROLOL SUCC 25MG EXT REL TAB PO SCH (07:39)
[2020-06-26] MEDS: clonazePAM 0.5 MG TAB PO SCH ×2 (07:41→20:16)
[2020-06-26] MEDS: TICAGRELOR 90 MG TAB PO SCH ×2 (07:41→20:17)
[2020-06-26 08:17] LABS: Eosinophils # (auto) 0.15 K/uL (0-0.5); Hematocrit (blood only) 31.6 % (42-52); Hemoglobin 10.3 g/dL (14.0-18.0); Immature Granulocytes # (auto) 0.06 K/uL (0.00-0.02); Immature Granulocytes % (auto) 0.4 %; Lymphocytes # (auto) 1.12 K/uL (1.2-3.4); Lymphocytes % (auto) 7.8 %; Mean Corpuscular Hemoglobin 27.2 pg (25-34); Mean Corpuscular Hgb Conc 32.6 g/dL (32-36); Mean Corpuscular Volume 83.6 fL (80-100); Mean Platelet Volume 9.3 fL (7.4-10.4); Monocytes # (auto) 0.95 K/uL (0.11-0.59); Monocytes % (auto) 6.6 %; Neutrophils # (auto) 12.01 K/uL (1.4-6.5); Neutrophils % (auto) 84.2 %; Platelet Count 438 K/uL (130-400); RDW Coefficient of Variation 17.2 % (11.5-14.5); RDW Standard Deviation 52.7 fL (36.4-46.3); Red Blood Count 3.78 M/uL (4.7-6.1); White Blood Count 14.29 K/uL (4.8-10.8)
[2020-06-26 08:44] LABS: BUN Creatinine Ratio 19.4 (10-20); Calcium 8.7 mg/dl (8.5-10.1); Creatinine Clr Calc Pharmacy 75.4 ml/min; Est GFR (African American) 92.2; Est GFR (Non-African American) 79.5; Potassium 3.3 mmol/L (3.5-5.1)
--- NOTE | 2020-06-26 10:23 | Hospitalist Progress Note ---
Date of Service June 26, 2020 Assessment & Plan (1) COVID-19: dexamethasone 6mg IV daily, last day will be 06/28 -completed remdesivir, 5 days no convalescent plasma given pulmonary edema and EF of 15% continues to be on vapotherm, 30L and 70% fio2, try to wean continue Lasix 40mg daily to keep lungs dry discussed with Dr. Harvey today, he feels his hypoxia is due to worsening COVID suggests we can give extra Lasix IV if needed to keep lungs dry (2) Acute diverticulitis: CT abdomen/pelvis performed for acute GI bleeding and left lower quadrant pain With sigmoid diverticulitis seen, no bowel obstruction Pain is now resolved with bowel rest and IV antibiotics, having occasional loose stools -advance diet to heart healthy, low fiber, eating a little bit more each day -treated with IV Zosyn from 06/19 to 06/26 change to Augmentin BID for three more days, stop evening 06/29 no fever, WBC down to 14k (3) Congestive heart failure due to cardiomyopathy: EF 16% per [facility] reports. Likely ICM - Patient discharged on LifeVest - Continue lifeVest when discharged, does not need to wear in the hospital - Medication optimization as above - with acute on chronic systolic CHF--> increased Lasix from 20mg to 40mg PO daily negative fluid balance each day Cr is 1.0 and K is 3.3 increase KCl to 20 TID -Appreciate cardiology consultation - Slowly introduce SUZANNE/ARB onto patient as blood pressure can tolerate Follow I's and O's Continue metoprolol can give extra Lasix IV if needed (4) Lethargy: Secondary to Covid-19 most likely--> now much improved ABG c/w hyperventilation, not hypercarbia Also with suspected GI bleeding possibly contributing although this is resolving Is also on clonazepam-[facility] shows that he takes 1 mg 3 times daily, however discharge medication list from [facility] states 0.5 mg p.o. 3 times daily He received 1 mg here initially but then HELD for lethargy--> restarted scheduled dosing at clonazepam 0.5 mg p.o. twice daily to avoid withdrawal as he was having some anxiety on 06/21 he is alert today, continue the BID dosing schedule (5) Chest pain: Patient presented with left-sided chest pain reminiscent of his previous angina before his STEMI 2 weeks prior to admission Troponin trended down likely from previous STEMI from 3--> 2-->1.5 No evidence of acute coronary syndrome (6) Hypoxia: acute respiratory failure with hypoxia As above, secondary to pulmonary edema and Covid-19 pneumonia as well as COPD ex acerbation on Vapotherm, stable at 30L and 70% FiO2 CXR 06/23 with worsening infiltrates increased Lasix to 40mg to try to keep lungs dry -Continue Decadron for Covid-19 until 06/28 (7) Black stool: had dark stool on 06/19, resolved for almost a week now Hgb has remained stable, > [address] abd/pel with acute sigmoid diverticulitis Protonix 40 mg once daily -Also continue Pepcid -Continue Carafate as per GI x2-week course -Okay to restart Lovenox -Continue dual antiplatelet therapy due to recent stent in the LAD (8) Pneumonia: Secondary to Covid-19 as above PCT 0.27, borderline elevated (9) Coronary disease: Status post recent STEMI with LAD stent-remains chest pain-free since admission - Cardiology consulted- appreciate assistance, 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 With wheezing here and mild COPD exacerbation - Continue albuterol and Umeclidinium -On Decadron for hypoxia with Covid-19 pneumonia (12) Anxiety and depression: Continue current outpatient regime but decrease clonazepam to a lower dose of 0.5mg bid given previous lethargy on higher dose Continue home Abilify, trazodone, duloxetine (13) Hypothyroid: TSH mildly elevated, free T4 also mildly elevated-unclear picture Continue home Synthroid dose for now Repeat TFTs in 2 weeks (14) GERD (gastroesophageal reflux disease): DC IV Protonix for suspected GI bleed and convert back to p.o. Protonix once daily now Continue Pepcid (15) Hypokalemia: 3.3 today, will increase KCl to 20 TID repeat tomorrow (16) DVT prophylaxis: Okay to restart Lovenox SQ, continue SCDs Disposition-continued stay in PCU, guarded prognosis, very frail given severe CHF, acute diverticulitis, Covid-19, and acute respiratory failure with hypoxia Came from [facility], would probably need to return once he is adequately treated anticipate him being here all week Full code Admission and Anticipated Discharge Date Admission Date: June 18, 2020 Subjective patient laying on his side, says his breathing is a little better down to 30L and 70% FiO2, saturations 94%, just a little tachypneic eating and drinking okay reviewed labs, K is 3.3, Cr is stable at 1.0, WBC down to 14K having some loose stools, no blood, no vomiting no chest pain/pressure discussed with Dr. Harvey, he says to continue the Lasix 40mg, keep patient negative fluid balance Review of Systems Review of Systems: All systems reviewed & are unremarkable except as noted in Subjective Constitutional: + fatigue and + weakness; no fever Respiratory: + dyspnea and + dyspnea on exertion; no cough Gastrointestinal: + diarrhea/loose stools; no abdominal pain, no nausea, no vomiting and no constipation Physical Exam Constitutional: well developed, + thin, + frail appearing and comfortable; no acute distress Neck: trachea midline, no thyromegaly Respiratory: normal respiratory effort, lungs clear to auscultation + tachypneic; no respiratory distress and no labored breathing Auscultation: lungs clear to auscultation bilaterally Cardiovascular: RRR, no murmur, no edema Gastrointestinal (Abdomen): normal bowel sounds, soft, nontender, no hepatosplenomegaly Musculoskeletal: no cyanosis or clubbing, extremities motor strength 5/5 Skin: no rashes, warm and dry Neurologic: patellar DTR's 2+ bilat, sensation intact and PERRL, EOMI, accommodation nl, no face palsy, no dysarthria Psychiatric: Orientation: alert and oriented x 3 Affect: + flat affect Lymphatic: no cervical or axillary lymphadenopathy Results & Data Results & Data ([facility]) Vital Signs (Past 12 Hours) Vital Signs Temp Pulse Pulse Resp BP Pulse Ox Pulse Ox 06/26/20 07:28 92 06/26/20 07:24 37.2 C 97 H 20 92/62 L 91 06/26/20 06:41 90 20 94 06/26/20 03:28 37.0 C 85 24 91/58 L 94 06/26/20 03:00 86 20 94 06/26/20 01:25 83 06/25/20 23:12 36.8 C 86 24 98/63 L 93 06/25/20 22:44 80 20 93 Laboratory Results Laboratory Results - last 24 hr 06/26/20 06/26/20 07:52 07:52 WBC 14.29 H RBC 3.78 L Hgb 10.3 L Hct 31.6 L MCV 83.6 MCH 27.2 MCHC 32.6 RDW Std Deviation 52.7 H RDW Coeff of Adrien 17.2 H Plt Count 438 H MPV 9.3 Immature Gran % (Auto) 0.4 Neut % (Auto) 84.2 Lymph % (Auto) 7.8 [place] % (Auto) 6.6 Eos % (Auto) 1.0 Baso % (Auto) 0.0 Neut # (Auto) 12.01 H Lymph # (Auto) 1.12 L [place] # (Auto) 0.95 H Eos # (Auto) 0.15 Baso # (Auto) 0.00 Immature Gran # (Auto) 0.06 H Sodium 142 Potassium 3.3 L Chloride 107 Carbon Dioxide 29 Anion Gap 6.0 BUN 20 H Creatinine 1.02 Est Cr Clr Drug Dosing 75.4 Est GFR ( Amer) 92.2 Est GFR (Non-Af Amer) 79.5 BUN/Creatinine Ratio 19.4 Glucose 96 Calcium 8.7 Medications Administered Current Inpatient Medications Acetaminophen (Acetaminophen 325 Mg Tab) 650 mg PO QID PRN PRN Reason: Pain Stop: 07/18/20 16:39 Last Admin: 06/23/20 12:19 Dose: 650 mg Documented by: Albuterol (Albuterol Hfa 8 Gm Inhaler) 1 puffs INH Q4H PRN PRN Reason: Wheezing Stop: 07/18/20 16:39 Albuterol (Albut/Ipratrop 3mg/0.5mg Neb 3 Ml Vial) 3 ml NEB Q4R PRN PRN Reason: Shortness Of Breath Stop: 07/25/20 10:20 Aripiprazole (Aripiprazole 10 Mg Tab) 10 mg PO DAILY HILARIA Stop: 07/19/20 08:59 Last Admin: 06/26/20 07:37 Dose: 10 mg Documented by: Ascorbic Acid (Ascorbic Acid 500 Mg Tab) 500 mg PO DAILY HILARIA Stop: 07/19/20 08:59 Last Admin: 06/26/20 07:37 Dose: 500 mg Documented by: Aspirin (Aspirin 81 Mg Ectab) 81 mg PO DAILY HILARIA Stop: 07/19/20 08:59 Last Admin: 06/26/20 07:36 Dose: 81 mg Documented by: Atorvastatin Calcium (Atorvastatin 40 Mg Tab) 80 mg PO HS HILARIA Stop: 07/18/20 20:59 Last Admin: 06/25/20 20:26 Dose: 80 mg Documented by: Clonazepam (Clonazepam 0.5 Mg Tab) 0.5 mg PO BID HILARIA Stop: 07/21/20 20:59 Last Admin: 06/26/20 07:41 Dose: 0.5 mg Documented by: Docusate Sodium (Docusate Sodium 100 Mg Cap) 100 mg PO BID HILARIA Stop: 07/18/20 20:59 Last Admin: 06/26/20 07:34 Dose: 100 mg Documented by: Duloxetine HCl (Duloxetine Hcl 60 Mg Cap) 60 mg PO BID HILARIA Stop: 07/18/20 20:59 Last Admin: 06/26/20 07:35 Dose: 60 mg Documented by: Enoxaparin Sodium (Enoxaparin Inj 40 Mg/0.4 Ml Syr) 40 mg SQ DAILY HILARIA Stop: 07/19/20 08:59 Last Admin: 06/26/20 07:37 Dose: 40 mg Documented by: Famotidine (Famotidine 20 Mg Tab) 20 mg PO DAILY HILARIA Stop: 07/19/20 08:59 Last Admin: 06/26/20 07:37 Dose: 20 mg Documented by: Folic Acid (Folic Acid 1 Mg Tab) 1 mg PO DAILY HILARIA Stop: 07/19/20 08:59 Last Admin: 06/26/20 07:37 Dose: 1 mg Documented by: Furosemide (Furosemide 40 Mg Tab) 40 mg PO DAILY HILARIA Stop: 07/24/20 08:59 Last Admin: 06/26/20 07:36 Dose: 40 mg Documented by: Dexamethasone Sodium Phosphate (6 mg/ Syringe) 1.5 mls @ 1 mls/min IV QAM HILARIA Stop: 07/19/20 09:29 Last Admin: 06/26/20 07:34 Dose: 1 mls/min Documented by: Piperacillin Sod/Tazobactam (Sod 3.375 gm/ Dextrose) 115 mls @ 28.75 mls/hr IV Q8H [facility]; Protocol Stop: 06/30/20 00:59 Last Admin: 06/26/20 09:59 Dose: 28.8 mls/hr Documented by: Levothyroxine Sodium (Levothyroxine Sodium 50 Mcg Tablet) 50 mcg PO DAILYBB [facility] Stop: 07/19/20 06:29 Last Admin: 06/26/20 05:43 Dose: 50 mcg Documented by: Melatonin (Melatonin 3 Mg Tab) 3 mg PO HSZ [facility] Stop: 07/18/20 21:59 Last Admin: 06/25/20 20:26 Dose: 3 mg Documented by: Menthol (Cough Drop (Sugar Free) Dre 24 Dre/1 Box) 1 dre BUCCAL Q8 PRN PRN Reason: sore throat Stop: 07/20/20 15:44 Metoprolol Succinate (Metoprolol Succ 25mg Ext Rel Tab) 25 mg PO DAILY [facility] Stop: 07/19/20 08:59 Last Admin: 06/26/20 07:39 Dose: Not Given Documented by: Miscellaneous Information (Piperacill/Tazobac Consult Active) 1 ea N/A UD PRN PRN Reason: Consult Stop: 07/19/20 20:13 Nitroglycerin (Nitroglycerin Sl 0.4 Mg/Tab Tab) 0.4 mg SL PRN PRN PRN Reason: non reproduceable chest pain Stop: 07/18/20 16:39 Last Admin: 06/21/20 01:39 Dose: 0.4 mg Documented by: Pantoprazole Sodium (Pantoprazole 40 Mg Tab) 40 mg PO QAM [facility] Stop: 07/22/20 17:59 Last Admin: 06/26/20 07:37 Dose: 40 mg Documented by: Polysaccharide Iron Complex (Iron Polysaccharide Complex 150 Mg Capsule) 150 mg PO BID [facility] Stop: 07/18/20 20:59 Last Admin: 06/26/20 07:34 Dose: 150 mg Documented by: Potassium Chloride (Potassium Chloride Crtab 20 Meq Tabcr) 20 meq PO TID [facility] Stop: 07/26/20 13:59 Sucralfate (Sucralfate 1 Gm/10 Ml Udc) 1 gm PO ACHS [facility] Stop: 07/20/20 16:29 Last Admin: 06/26/20 07:38 Dose: 1 gm Documented by: Ticagrelor (Ticagrelor 90 Mg Tab) 90 mg PO BID HILARIA Stop: 07/18/20 20:59 Last Admin: 06/26/20 07:41 Dose: 90 mg Documented by: Trazodone HCl (Trazodone Hcl 50 Mg Tab) 150 mg PO HS HILARIA Stop: 07/18/20 20:59 Last Admin: 06/25/20 20:26 Dose: 150 mg Documented by: Umeclidinium [place] (Umeclidinium [place] 62.5mcg/Blister 7 Puffs/Inhaler) 1 puffs INH DAILY HILARIA Stop: 07/19/20 08:59 Last Admin: 06/26/20 07:35 Dose: 1 puffs Documented by: Vitamin D (Cholecalciferol 1,000 Units 25 Mcg Tab) 2,000 units PO DAILY HILARIA Stop: 07/19/20 08:59 Last Admin: 06/26/20 07:36 Dose: 2,000 units Documented by: Zinc Sulfate (Zinc Sulfate 220 Mg Capsule) 220 mg PO DAILY HILARIA Stop: 07/19/20 08:59 Last Admin: 06/26/20 07:37 Dose: 220 mg Documented by: PG Care Time/CCT Total # of Minutes Spent Total Time Spent with Patient: Total time spent is greater than 50% in coordina tion of care (as documented) at patient's floor/unit and/or counseling patient: Coding Level of Care Code 99873 Subseq Hosp Care Lvl 3 Diagnoses COVID-19 U07.1 Acute diverticulitis K57.92 Congestive heart failure due to cardiomyopathy I50.9; I42.9 Lethargy R53.83 Chest pain R07.9 Hypoxia R09.02 Black stool K92.1 Pneumonia J18.9 Coronary disease I25.119 Coronary Disease-Associated Artery/Lesion type: [place] artery [place] vs. transplanted heart: [place] heart Associated angina: with unspecified angina HTN (hypertension) I10 Hypertension type: unspecified COPD (chronic obstructive pulmonary disease) J44.9 COPD type: emphysema Anxiety and depression F41.9; F32.9 Hypothyroid E03.9 Hypothyroidism type: unspecified GERD (gastroesophageal reflux disease) K21.9 Hypokalemia E87.6 DVT prophylaxis Z29.9 (1) Coronary disease Coronary Disease-Associated Artery/Lesion type: [place] artery [place] vs. transplanted heart: [place] heart Associated angina: with unspecified angina Qualified Code(s): I25.119 - Atherosclerotic heart disease of [place] coronary artery with unspecified angina pectoris (2) HTN (hypertension) Hypertension type: unspecified Qualified Code(s): I10 - Essential (primary) hypertension (3) COPD (chronic obstructive pulmonary disease) COPD type: emphysema (4) Hypothyroid Hypothyroidism type: unspecified Qualified Code(s): E03.9 - Hypothyroidism, unspecified
--- NOTE | 2020-06-26 14:30 | Cardiology Progress Note ---
Date of Service June 26, 2020 Assessment & Plan (1) Congestive heart failure due to cardiomyopathy: He appears to have a fairly tenuous respiratory situation. Perhaps mildly improved today. According to the nursing staff he has some since episodes of anxiety and tachypnea. Continues to require high-flow oxygen. Lungs I think this is more likely related to his viral pneumonia rather than decompensated heart failure or pulmonary edema. He has continued to affect a mild diuresis daily. Renal function electrolytes appear stable. I think we will continue to adjust diuretics in order to maintain an net negative fluid balance. Provided he does not develop significant hypotension or renal failure with a potentially prevent pulmonary edema in this fashion. (2) Coronary disease: Recent anterior [place]. Continue BB, atorvastatin,aspirin and Brilinta (Beta- valeriy currently held due to relative hypotension.) (3) Elevated troponin: Admission and Anticipated Discharge Date Admission Date: June 18, 2020 Subjective this morning the patient appeared weak and tired. He denies any specific complaints. He did not report any additional episodes of chest pain. Poor appetite. Minimal ambulation. Review of Systems Review of Systems: Per HPI Physical Exam Physical Exam: he appeared tired and weak. He did answer questions appropriate HEENT: Pupils are equal and reactive to light and accommodation. Extraocular movements are intact. The sclerae are anicteric. Surgical scar midline scalp Neuro: Cranial nerves intact Lungs: occasional crackle at the bases. No expiratory wheezing. Normal respiratory effort. Cardiac: Heart demonstrates a regular Rhythm and normal rate. Normal S1 and S2. No murmurs on examination. Chest: No pain to palpation. Normal rate. No murmurs. Abdomen: Soft. Nontender. Pulses: The patient has palpable radial pulses bilaterally that are equal in intensity but diminished. Extremities: There was no evidence of hypoperfusion. There is no cyanosis or clubbing. There is no edema. Skin: I did not appreciate any rashes on examination today. Multiple ecchymoses in both hands and arms. Results & Data ([facility]) Vital Signs (Past 12 Hours) Vital Signs Temp Pulse Pulse Resp BP Pulse Ox Pulse Ox 06/26/20 14:22 84 20 95 06/26/20 11:38 84 20 94 06/26/20 11:18 36.7 C 88 88 16 88/55 L 93 06/26/20 07:28 92 06/26/20 07:24 37.2 C 97 H 20 92/62 L 91 06/26/20 06:41 90 20 94 06/26/20 03:28 37.0 C 85 24 91/58 L 94 06/26/20 03:00 86 20 94 Laboratory Results Abnormal Lab Results 06/26/20 06/26/20 07:52 07:52 WBC 14.29 H RBC 3.78 L Hgb 10.3 L Hct 31.6 L MCV 83.6 MCH 27.2 MCHC 32.6 RDW Std Deviation 52.7 H RDW Coeff of Adrien 17.2 H Plt Count 438 H MPV 9.3 Immature Gran % (Auto) 0.4 Neut % (Auto) 84.2 Lymph % (Auto) 7.8 [place] % (Auto) 6.6 Eos % (Auto) 1.0 Baso % (Auto) 0.0 Neut # (Auto) 12.01 H Lymph # (Auto) 1.12 L [place] # (Auto) 0.95 H Eos # (Auto) 0.15 Baso # (Auto) 0.00 Immature Gran # (Auto) 0.06 H Sodium 142 Potassium 3.3 L Chloride 107 Carbon Dioxide 29 Anion Gap 6.0 BUN 20 H Creatinine 1.02 Est Cr Clr Drug Dosing 75.4 Est GFR ( Amer) 92.2 Est GFR (Non-Af Amer) 79.5 BUN/Creatinine Ratio 19.4 Glucose 96 Calcium 8.7 PG Care Time/CCT Total # of Minutes Spent Total Time Spent with Patient: Total time spent is greater than 50% in coordination of care (as documented) at patient's floor/unit and/or counseling patient: Coding Level of Care Code 16940 Subseq Hosp Care Lvl 3 Diagnoses Congestive heart failure due to cardiomyopathy I50.9; I42.9 Coronary disease I25.119 Coronary Disease-Associated Artery/Lesion type: [place] artery [place] vs. transplanted heart: [place] heart Associated angina: with unspecified angina Elevated troponin R77.8 (1) Coronary disease Coronary Disease-Associated Artery/Lesion type: [place] artery [place] vs. transplanted heart: tribe heart Associated angina: with unspecified angina Qualified Code(s): I25.119 - Atherosclerotic heart disease of [place] coronary artery with unspecified angina pectoris
[2020-06-26] MEDS: AMOXICILLIN/CLAVULANATE 875 MG TAB PO SCH (16:04)
[2020-06-26] MEDS: ATORVASTATIN 40 MG TAB PO SCH (20:16)
[2020-06-26] MEDS: traZODone HCL 50 MG TAB PO SCH (20:17)
[2020-06-26] MEDS: MELATONIN 3 MG TAB PO SCH (20:17)
[2020-06-27] MEDS: LEVOTHYROXINE SODIUM 50 MCG TABLET PO SCH (05:41)
[2020-06-27 06:57] LABS: Basophils # (auto) 0.01 K/uL (0-0.2); Basophils % (auto) 0.1 %; Eosinophils # (auto) 0.19 K/uL (0-0.5); Eosinophils % (auto) 1.2 %; Hematocrit (blood only) 32.2 % (42-52); Hemoglobin 10.5 g/dL (14.0-18.0); Immature Granulocytes # (auto) 0.05 K/uL (0.00-0.02); Immature Granulocytes % (auto) 0.3 %; Lymphocytes # (auto) 1.43 K/uL (1.2-3.4); Lymphocytes % (auto) 9.2 %; Mean Corpuscular Hemoglobin 27.6 pg (25-34); Mean Corpuscular Hgb Conc 32.6 g/dL (32-36); Mean Corpuscular Volume 84.5 fL (80-100); Mean Platelet Volume 9.6 fL (7.4-10.4); Monocytes # (auto) 0.95 K/uL (0.11-0.59); Monocytes % (auto) 6.1 %; Neutrophils # (auto) 12.91 K/uL (1.4-6.5); Neutrophils % (auto) 83.1 %; Platelet Count 477 K/uL (130-400); RDW Coefficient of Variation 17.4 % (11.5-14.5); RDW Standard Deviation 54.3 fL (36.4-46.3); Red Blood Count 3.81 M/uL (4.7-6.1); White Blood Count 15.54 K/uL (4.8-10.8)
[2020-06-27 07:06] LABS: BUN Creatinine Ratio 21.6 (10-20); Calcium 8.8 mg/dl (8.5-10.1); Est GFR (African American) 95.5; Est GFR (Non-African American) 82.4; Magnesium 1.8 mg/dl (1.8-2.4); Potassium 3.4 mmol/L (3.5-5.1)
[2020-06-27] MEDS: UMECLIDINIUM BROMIDE 62.5MCG/BLISTER 7 PUFFS/INHALER INH SCH (08:17)
[2020-06-27] MEDS: DOCUSATE SODIUM 100 MG CAP PO SCH ×2 (08:18→20:57)
[2020-06-27] MEDS: IRON POLYSACCHARIDE COMPLEX 150 MG CAPSULE PO SCH ×2 (08:18→20:53)
[2020-06-27] MEDS: DEXAMETHASONE SOD PHOSPHATE 6 MG in SYRINGE 0 ML IV SCH (08:18)
[2020-06-27] MEDS: DULoxetine HCL 60 MG CAP PO SCH ×2 (08:18→20:54)
[2020-06-27] MEDS: FAMOTIDINE 20 MG TAB PO SCH (08:19)
[2020-06-27] MEDS: FOLIC ACID 1 MG TAB PO SCH (08:19)
[2020-06-27] MEDS: FUROSEMIDE 40 MG TAB PO SCH (08:19)
[2020-06-27] MEDS: ASCORBIC ACID 500 MG TAB PO SCH (08:19)
[2020-06-27] MEDS: ARIPiprazole 10 MG TAB PO SCH (08:19)
[2020-06-27] MEDS: AMOXICILLIN/CLAVULANATE 875 MG TAB PO SCH ×2 (08:19→16:06)
[2020-06-27] MEDS: ZINC SULFATE 220 MG CAPSULE PO SCH (08:20)
[2020-06-27] MEDS: ENOXAPARIN INJ 40 MG/0.4 ML SYR SQ SCH (08:20)
[2020-06-27] MEDS: METOPROLOL SUCC 25MG EXT REL TAB PO SCH (08:20)
[2020-06-27] MEDS: PANTOprazole 40 MG TAB PO SCH (08:20)
[2020-06-27] MEDS: CHOLECALCIFEROL 1,000 UNITS 25 MCG TAB PO SCH (08:20)
[2020-06-27] MEDS: ASPIRIN 81 MG ECTAB PO SCH (08:21)
[2020-06-27] MEDS: clonazePAM 0.5 MG TAB PO SCH ×2 (08:24→21:03)
[2020-06-27] MEDS: POTASSIUM CHLORIDE CRTAB 20 MEQ TABCR PO SCH ×3 (08:24→21:04)
[2020-06-27] MEDS: SUCRALFATE 1 GM/10 ML UDC PO SCH ×4 (08:25→20:54)
[2020-06-27] MEDS: TICAGRELOR 90 MG TAB PO SCH ×2 (08:26→21:03)
--- NOTE | 2020-06-27 09:41 | Hospitalist Progress Note ---
Date of Service June 27, 2020 Assessment & Plan (1) COVID-19: dexamethasone 6mg IV daily, last day will be 06/28 (tomorrow) -completed remdesivir, 5 days no convalescent plasma given pulmonary edema and EF of 15% continues to be on vapotherm, 35L and 65% fio2, try to wean continue Lasix 40mg daily to keep lungs dry discussed with Dr. Harvey today, he feels his hypoxia is due to worsening COVID suggests we can give extra Lasix IV if needed to keep lungs dry PT/OT consults, patient has been laying in bed all the time, not motivated to get up (2) Acute diverticulitis: CT abdomen/pelvis performed for acute GI bleeding and left lower quadrant pain With sigmoid diverticulitis seen, no bowel obstruction Pain is now resolved with bowel rest and IV antibiotics, having occasional loose stools -advance diet to heart healthy, low fiber, eating a little bit more each day -treated with IV Zosyn from 06/19 to 06/26 change to Augmentin BID for three more days, stop evening 06/29 no fever, WBC stable at 15k (3) Congestive heart failure due to cardiomyopathy: EF 16% per [facility] reports. Likely ICM - Patient discharged on LifeVest - Continue lifeVest when discharged, does not need to wear in the hospital - Medication optimization as above - with acute on chronic systolic CHF--> increased Lasix from 20mg to 40mg PO daily negative fluid balance each day Cr is 0.99 and K is 3.4 continue KCl 20 TID -Appreciate cardiology consultation - Slowly introduce SUZANNE/ARB onto patient as blood pressure can tolerate Follow I's and O's Continue metoprolol can give extra Lasix IV if needed, none needed today (4) Lethargy: Secondary to Covid-19 most likely--> now much improved ABG c/w hyperventilation, not hypercarbia Also with suspected GI bleeding possibly contributing although this is resolving Is also on clonazepam-PDMP website shows that he takes 1 mg 3 times daily, however discharge medication list from [facility] states 0.5 mg p.o. 3 times daily He received 1 mg here initially but then HELD for lethargy--> restarted scheduled dosing at clonazepam 0.5 mg p.o. twice daily to avoid withdrawal as he was having some anxiety on 06/21 he is alert today, continue the BID dosing schedule PT/OT for increased activity, he was at rehab prior to this admission (5) Chest pain: Patient presented with left-sided chest pain reminiscent of his previous angina before his STEMI 2 weeks prior to admission Troponin trended down likely from previous STEMI from 3--> 2-->1.5 No evidence of acute coronary syndrome (6) Hypoxia: acute respiratory failure with hypoxia As above, secondary to pulmonary edema and Covid-19 pneumonia as well as COPD exacerbation on Vapotherm, stable at 35L and 65% FiO2 CXR 06/23 with worsening infiltrates increased Lasix to 40mg to try to keep lungs dry -Continue Decadron for Covid-19 until 06/28 (7) Black stool: had dark stool on 06/19, resolved for almost a week now Hgb has remained stable, 10.[address] abd/pel with acute sigmoid diverticulitis Protonix 40 mg once daily -Also continue Pepcid -Continue Carafate as per GI x2-week course -Okay to restart Lovenox -Continue dual antiplatelet therapy due to recent stent in the LAD (8) Pneumonia: Secondary to Covid-19 as above PCT 0.27, borderline elevated (9) Coronary disease: Status post recent STEMI with LAD stent-remains chest pain-free since admission - Cardiology consulted- appreciate assistance, no current plans to go to hospital laboratory technician - Continue DAPT - Continue BB as patient remains hemodynamically stable and no evidence of worsening failure - Continue high dose statin (10) HTN (hypertension): Blood pressures chronically low likely secondary to severe systolic dysfunction Continue metoprolol, Lasix (11) COPD (chronic obstructive pulmonary disease): As above Patient recently stopped smoking, smoked 1-5 cigarettes per day for 40 years. With wheezing here and mild COPD exacerbation - Continue albuterol and Umeclidinium -On Decadron for hypoxia with Covid-19 pneumonia (12) Anxiety and depression: Continue current outpatient regime but decrease clonazepam to a lower dose of 0.5mg bid given previous lethargy on higher dose Continue home Abilify, trazodone, duloxetine (13) Hypothyroid: TSH mildly elevated, free T4 also mildly elevated-unclear picture Continue home Synthroid dose for now Repeat TFTs in 2 weeks (14) GERD (gastroesophageal reflux disease): DC IV Protonix for suspected GI bleed and convert back to p.o. Protonix once daily now Continue Pepcid (15) Hypokalemia: 3.4 today, will continue KCl 20 TID repeat tomorrow (16) DVT prophylaxis: Okay to restart Lovenox SQ, continue SCDs Disposition-continued stay in PCU, guarded prognosis, very frail given severe CHF, acute diverticulitis, Covid-19, and acute respiratory failure with hypoxia Came from [facility] rehab, would probably need to return once he is adequately treated anticipate him being here until next week Full code Admission and Anticipated Discharge Date Admission Date: June 18, 2020 Subjective patient very similar today as the past few days he is laying on his left side, sleeping soundly, no respiratory distress he has no motivation to move he denies chest pain, abdominal pain, nausea, diarrhea admits to dyspnea at rest and on exertion, although he is not exerting himself v sergey much labs reviewed, K is 3.4, Cr 0.99, WBC 15k discussed with Dr. Harvey, feels the patient is stable from cardiac perspective, need to get him moving more formal PT/OT placed this morning he is down a little on oxygen requirements at 65% fio2, still on 35L Review of Systems Review of Systems: All systems reviewed & are unremarkable except as noted in Subjective Constitutional: + fatigue and + weakness; no fever Respiratory: + dyspnea and + dyspnea on exertion; no cough Cardiovascular: + dyspnea and + dyspnea on exertion; no chest pain, no palpitations, no syncope and no edema Gastrointestinal: + diarrhea/loose stools; no abdominal pain, no nausea, no vomiting and no constipation Physical Exam Constitutional: well developed, + thin, + frail appearing and comfortable; no acute distress Neck: trachea midline, no thyromegaly Respiratory: normal respiratory effort, lungs clear to auscultation + tachypneic; no respiratory distress and no labored breathing Auscultation: lungs clear to auscultation bilaterally Cardiovascular: RRR, no murmur, no edema Gastrointestinal (Abdomen): normal bowel sounds, soft, nontender, no hepatosplenomegaly Musculoskeletal: no cyanosis or clubbing, extremities motor strength 5/5 Skin: no rashes, warm and dry Neurologic: patellar DTR's 2+ bilat, sensation intact and PERRL, EOMI, accommodation nl, no face palsy, no dysarthria Psychiatric: Orientation: alert and oriented x 3 Affect: + flat affect Lymphatic: no cervical or axillary lymphadenopathy Results & Data Results & Data ([facility]) Vital Signs (Past 12 Hours) Vital Signs Temp Pulse Pulse Resp BP Pulse Ox Pulse Ox 06/27/20 07:42 64 24 93 06/27/20 07:11 36.5 C 89 20 100/72 93 06/27/20 06:57 35 L 06/27/20 03:47 36.5 C 92 H 22 89/54 L 95 06/27/20 03:07 92 H 18 91 06/27/20 00:29 92 H 06/26/20 23:59 36.6 C 85 17 107/78 92 06/26/20 23:09 86 20 89 L Laboratory Results Laboratory Results - last 24 hr 06/27/20 06/27/20 05:34 05:34 WBC 15.54 H RBC 3.81 L Hgb 10.5 L Hct 32.2 L MCV 84.5 MCH 27.6 MCHC 32.6 RDW Std Deviation 54.3 H RDW Coeff of Adrien 17.4 H Plt Count 477 H MPV 9.6 Immature Gran % (Auto) 0.3 Neut % (Auto) 83.1 Lymph % (Auto) 9.2 [place] % (Auto) 6.1 Eos % (Auto) 1.2 Baso % (Auto) 0.1 Neut # (Auto) 12.91 H Lymph # (Auto) 1.43 [place] # (Auto) 0.95 H Eos # (Auto) 0.19 Baso # (Auto) 0.01 Immature Gran # (Auto) 0.05 H Sodium 142 Potassium 3.4 L Chloride 108 H Carbon Dioxide 28 Anion Gap 7.0 BUN 21 H Creatinine 0.99 Est Cr Clr Drug Dosing 78.0 Est GFR ( Amer) 95.5 Est GFR (Non-Af Amer) 82.4 BUN/Creatinine Ratio 21.6 H Glucose 129 H Calcium 8.8 Magnesium 1.8 Medications Administered Current Inpatient Medications Acetaminophen (Acetaminophen 325 Mg Tab) 650 mg PO QID PRN PRN Reason: Pain Stop: 07/18/20 16:39 Last Admin: 06/23/20 12:19 Dose: 650 mg Documented by: Albuterol (Albuterol Hfa 8 Gm Inhaler) 1 puffs INH Q4H PRN PRN Reason: Wheezing Stop: 07/18/20 16:39 Albuterol (Albut/Ipratrop 3mg/0.5mg Neb 3 Ml Vial) 3 ml NEB Q4R PRN PRN Reason: Shortness Of Breath Stop: 07/25/20 10:20 Amoxicillin/Clavulanate Potassium (Amoxicillin/Clavulanate 875 Mg Tab) 1 tab PO BIDM [facility] Stop: 07/06/20 16:59 Last Admin: 06/27/20 08:19 Dose: 1 tab Documented by: Aripiprazole (Aripiprazole 10 Mg Tab) 10 mg PO DAILY [facility] Stop: 07/19/20 08:59 Last Admin: 06/27/20 08:19 Dose: 10 mg Documented by: Ascorbic Acid (Ascorbic Acid 500 Mg Tab) 500 mg PO DAILY [facility] Stop: 07/19/20 08:59 Last Admin: 06/27/20 08:19 Dose: 500 mg Documented by: Aspirin (Aspirin 81 Mg Ectab) 81 mg PO DAILY [facility] Stop: 07/19/20 08:59 Last Admin: 06/27/20 08:21 Dose: 81 mg Documented by: Atorvastatin Calcium (Atorvastatin 40 Mg Tab) 80 mg PO HS [facility] Stop: 07/18/20 20:59 Last Admin: 06/26/20 20:16 Dose: 80 mg Documented by: Clonazepam (Clonazepam 0.5 Mg Tab) 0.5 mg PO BID [facility] Stop: 07/21/20 20:59 Last Admin: 06/27/20 08:24 Dose: 0.5 mg Documented by: Docusate Sodium (Docusate Sodium 100 Mg Cap) 100 mg PO BID [facility] Stop: 07/18/20 20:59 Last Admin: 06/27/20 08:18 Dose: 100 mg Documented by: Duloxetine HCl (Duloxetine Hcl 60 Mg Cap) 60 mg PO BID [facility] Stop: 07/18/20 20:59 Last Admin: 06/27/20 08:18 Dose: 60 mg Documented by: Enoxaparin Sodium (Enoxaparin Inj 40 Mg/0.4 Ml Syr) 40 mg SQ DAILY [facility] Stop: 07/19/20 08:59 Last Admin: 06/27/20 08:20 Dose: 40 mg Documented by: Famotidine (Famotidine 20 Mg Tab) 20 mg PO DAILY [facility] Stop: 07/19/20 08:59 Last Admin: 06/27/20 08:19 Dose: 20 mg Documented by: Folic Acid (Folic Acid 1 Mg Tab) 1 mg PO DAILY [facility] Stop: 07/19/20 08:59 Last Admin: 06/27/20 08:19 Dose: 1 mg Documented by: Furosemide (Furosemide 40 Mg Tab) 40 mg PO DAILY [facility] Stop: 07/24/20 08:59 Last Admin: 06/27/20 08:19 Dose: 40 mg Documented by: Dexamethasone Sodium Phosphate (6 mg/ Syringe) 1.5 mls @ 1 mls/min IV QAM [facility] Stop: 07/19/20 09:29 Last Admin: 06/27/20 08:18 Dose: 1 mls/min Documented by: Levothyroxine Sodium (Levothyroxine Sodium 50 Mcg Tablet) 50 mcg PO DAILYBB [facility] Stop: 07/19/20 06:29 Last Admin: 06/27/20 05:41 Dose: 50 mcg Documented by: Melatonin (Melatonin 3 Mg Tab) 3 mg PO HSZ [facility] Stop: 07/18/20 21:59 Last Admin: 06/26/20 20:17 Dose: 3 mg Documented by: Menthol (Cough Drop (Sugar Free) Dre 24 Dre/1 Box) 1 dre BUCCAL Q8 PRN PRN Reason: sore throat Stop: 07/20/20 15:44 Metoprolol Succinate (Metoprolol Succ 25mg Ext Rel Tab) 25 mg PO DAILY [facility] Stop: 07/19/20 08:59 Last Admin: 06/27/20 08:20 Dose: Not Given Documented by: Nitroglycerin (Nitroglycerin Sl 0.4 Mg/Tab Tab) 0.4 mg SL PRN PRN PRN Reason: non reproduceable chest pain Stop: 07/18/20 16:39 Last Admin: 06/21/20 01:39 Dose: 0.4 mg Documented by: Pantoprazole Sodium (Pantoprazole 40 Mg Tab) 40 mg PO QAM [facility] Stop: 07/22/20 17:59 Last Admin: 06/27/20 08:20 Dose: 40 mg Documented by: Polysaccharide Iron Complex (Iron Polysaccharide Complex 150 Mg Capsule) 150 mg PO BID [facility] Stop: 07/18/20 20:59 Last Admin: 06/27/20 08:18 Dose: 150 mg Documented by: Potassium Chloride (Potassium Chloride Crtab 20 Meq Tabcr) 20 meq PO TID [facility] Stop: 07/26/20 13:59 Last Admin: 06/27/20 08:24 Dose: 20 meq Documented by: Sucralfate (Sucralfate 1 Gm/10 Ml Udc) 1 gm PO ACHS [facility] Stop: 07/20/20 16:29 Last Admin: 06/27/20 08:25 Dose: 1 gm Documented by: Ticagrelor (Ticagrelor 90 Mg Tab) 90 mg PO BID [facility] Stop: 07/18/20 20:59 Last Admin: 06/27/20 08:26 Dose: 90 mg Documented by: Trazodone HCl (Trazodone Hcl 50 Mg Tab) 150 mg PO HS [facility] Stop: 07/18/20 20:59 Last Admin: 06/26/20 20:17 Dose: 150 mg Documented by: Umeclidinium [place] (Umeclidinium [place] 62.5mcg/Blister 7 Puffs/Inhaler) 1 puffs INH DAILY [facility] Stop: 07/19/20 08:59 Last Admin: 06/27/20 08:17 Dose: 1 puffs Documented by: Vitamin D (Cholecalciferol 1,000 Units 25 Mcg Tab) 2,000 units PO DAILY [facility] Stop: 07/19/20 08:59 Last Admin: 06/27/20 08:20 Dose: 2,000 units Documented by: Zinc Sulfate (Zinc Sulfate 220 Mg Capsule) 220 mg PO DAILY [facility] Stop: 07/19/20 08:59 Last Admin: 06/27/20 08:20 Dose: 220 mg Documented by: PG Care Time/CCT Total # of Minutes Spent Total Time Spent with Patient: Total time spent is greater than 50% in coordination of care (as documented) at patient's floor/unit and/or counseling patient: Coding Level of Care Code 62584 Subseq Hosp Care Lvl 3 Diagnoses COVID-19 U07.1 Acute diverticulitis K57.92 Congestive heart failure due to cardiomyopathy I50.9; I42.9 Lethargy R53.83 Chest pain R07.9 Hypoxia R09.02 Black stool K92.1 Pneumonia J18.9 Coronary disease I25.119 Coronary Disease-Associated Artery/Lesion type: [place] artery [place] vs. transplanted heart: [place] heart Associated angina: with unspecified angina HTN (hypertension) I10 Hypertension type: unspecified COPD (chronic obstructive pulmonary disease) J44.9 COPD type: emphysema Anxiety and depression F41.9; F32.9 Hypothyroid E03.9 Hypothyroidism type: unspecified GERD (gastroesophageal reflux disease) K21.9 Hypokalemia E87.6 DVT prophylaxis Z29.9 (1) Coronary disease Coronary Disease-Associated Artery/Lesion type: [place] artery [place] vs. transplanted heart: [place] heart Associated angina: with unspecified angina Qualified Code(s): I25.119 - Atherosclerotic heart disease of [place] coronary artery with unspecified angina pectoris (2) HTN (hypertension) Hypertension type: unspecified Qualified Code(s): I10 - Essential (primary) hypertension (3) COPD (chronic obstructive pulmonary disease) COPD type: emphysema (4) Hypothyroid Hypothyroidism type: unspecified Qualified Code(s): E03.9 - Hypothyroidism, unspecified
--- NOTE | 2020-06-27 10:39 | Cardiology Progress Note ---
Date of Service June 27, 2020 Assessment & Plan (1) Congestive heart failure due to cardiomyopathy: He appears to have a fairly tenuous respiratory situation. He is very weak. He appears to be affecting a good diuresis daily with a single oral dose of Lasix. Potassium supplementation has been intensified. I believe his oxygen requires more likely related to his underlying viral pneumonia than decompensated heart failure. I would recommend continuing his current dose of diuretic. Renal function appears stable. (2) Coronary disease: Recent anterior ME. Continue BB, atorvastatin,aspirin and Brilinta (Beta- valeriy currently held due to relative hypotension.) (3) Elevated troponin: Trending downward. Related to the tail end of his anterior infarct. Admission and Anticipated Discharge Date Admission Date: June 18, 2020 Subjective This morning the patient denied specific complaints. No recurrent symptoms of chest discomfort. While resting he does not feel particularly short of breath. He did report ambulating to the commode on 2 occasions. He was dyspnea. Perhaps some mild dizziness. Continues to be very weak. Poor appetite. Anxious to go home. Review of Systems Review of Systems: Per HPI Physical Exam Physical Exam: he appeared tired and weak. He did answer questions appropriately HEENT: Pupils are equal and reactive to light and accommodation. Extraocular movements are intact. The sclerae are anicteric. Surgical scar midline scalp Neuro: Cranial nerves intact Lungs: Right lung sound appears to have good aeration. Poor air movement in the left lung field with occasional crackles. No expiratory wheezing. Normal respiratory effort at rest. Cardiac: Heart demonstrates a regular Rhythm and normal rate. Normal S1 and S2. No murmurs on examination. Abdomen: Soft. Nontender. Pulses: The patient has palpable radial pulses bilaterally that are equal in intensity but diminished. Extremities: There was no evidence of hypoperfusion. There is no cyanosis or clubbing. There is no edema. Skin: I did not appreciate any rashes on examination today. Multiple ecchymoses in both hands and arms. Results & Data ([facility]) Vital Signs (Past 12 Hours) Vital Signs Temp Pulse Pulse Resp BP Pulse Ox Pulse Ox 06/27/20 07:42 64 24 93 06/27/20 07:11 36.5 C 89 20 100/72 93 06/27/20 06:57 35 L 06/27/20 03:47 36.5 C 92 H 22 89/54 L 95 06/27/20 03:07 92 H 18 91 06/27/20 00:29 92 H 06/26/20 23:59 36.6 C 85 17 107/78 92 06/26/20 23:09 86 20 89 L Laboratory Results Abnormal Lab Results 06/27/20 06/27/20 05:34 05:34 WBC 15.54 H RBC 3.81 L Hgb 10.5 L Hct 32.2 L MCV 84.5 MCH 27.6 MCHC 32.6 RDW Std Deviation 54.3 H RDW Coeff of Adrien 17.4 H Plt Count 477 H MPV 9.6 Immature Gran % (Auto) 0.3 Neut % (Auto) 83.1 Lymph % (Auto) 9.2 [place] % (Auto) 6.1 Eos % (Auto) 1.2 Baso % (Auto) 0.1 Neut # (Auto) 12.91 H Lymph # (Auto) 1.43 [place] # (Auto) 0.95 H Eos # (Auto) 0.19 Baso # (Auto) 0.01 Immature Gran # (Auto) 0.05 H Sodium 142 Potassium 3.4 L Chloride 108 H Carbon Dioxide 28 Anion Gap 7.0 BUN 21 H Creatinine 0.99 Est Cr Clr Drug Dosing 78.0 Est GFR ( Amer) 95.5 Est GFR (Non-Af Amer) 82.4 BUN/Creatinine Ratio 21.6 H Glucose 129 H Calcium 8.8 Magnesium 1.8 PG Care Time/CCT Total # of Minutes Spent Total Time Spent with Patient: Total time spent is greater than 50% in coordination of care (as documented) at patient's floor/unit and/or counseling patient: Coding Level of Care Code 50792 Subseq Hosp Care Lvl 3 Diagnoses Congestive heart failure due to cardiomyopathy I50.9; I42.9 Coronary disease I25.119 Coronary Disease-Associated Artery/Lesion type: [place] artery [place] vs. transplanted heart: [place] heart Associated angina: with unspecified angina Elevated troponin R77.8 (1) Coronary disease Coronary Disease-Associated Artery/Lesion type: [place] artery [place] vs. transplanted heart: [place] heart Associated angina: with unspecified angina Qualified Code(s): I25.119 - Atherosclerotic heart disease of [place] coronary artery with unspecified angina pectoris
[2020-06-27] MEDS: ATORVASTATIN 40 MG TAB PO SCH (20:52)
[2020-06-27] MEDS: MUPIROCIN 2% OINT 22 GM TUBE EXT SCH (20:52)
[2020-06-27] MEDS: traZODone HCL 50 MG TAB PO SCH (21:03)
[2020-06-27] MEDS: MELATONIN 3 MG TAB PO SCH (21:04)
[2020-06-28] MEDS: ALBUMIN 25% 12.5 GM/50 ML VIAL IV SCH ×4 (04:15→06:59)
--- NOTE | 2020-06-28 05:02 | Communication Note ---
Date of Service: June 28, 2020 Contacted by nursing for concerns that patient had increasing O2 demand throughout the night going from 30L/50% to 40L/60% high flow. Patient intermittently tachypneic and tachycardic in the 1-teens. Nursing had attempted proning to which the patient did not tolerate well. Went up to evaluate patient. Patient noting anxiety, discomfort with the HFNC (per nursing had been removing), offered bipap which patient was agreeable to. Patient denied having any current chest pain or pressure. O: Heart tachycardic, regular Lungs diminished throughout, though no crackles or wheezes audible AP: -Reoriented patient. -Ordered for Bipap. -CXR ordered, mild improvement of chest density when compared to CXR 06/25/20particulalry in the R lung field. -With increasing hypotension and suspected 3rd spacing, albumin 50 ordered Resident Activity Tracking Resident Involvement: Resident Care Provided Care Provided: Adult Hospital Medicine
[2020-06-28] MEDS: LEVOTHYROXINE SODIUM 50 MCG TABLET PO SCH (05:49)
[2020-06-28 06:46] LABS: Basophils # (auto) 0.01 K/uL (0-0.2); Basophils % (auto) 0.1 %; Eosinophils # (auto) 0.17 K/uL (0-0.5); Eosinophils % (auto) 1.1 %; Hematocrit (blood only) 31.7 % (42-52); Hemoglobin 10.2 g/dL (14.0-18.0); Immature Granulocytes # (auto) 0.05 K/uL (0.00-0.02); Immature Granulocytes % (auto) 0.3 %; Lymphocytes # (auto) 1.31 K/uL (1.2-3.4); Lymphocytes % (auto) 8.4 %; Mean Corpuscular Hgb Conc 32.2 g/dL (32-36); Mean Corpuscular Volume 83.9 fL (80-100); Mean Platelet Volume 9.3 fL (7.4-10.4); Monocytes % (auto) 7.7 %; Neutrophils # (auto) 12.88 K/uL (1.4-6.5); Neutrophils % (auto) 82.4 %; Platelet Count 422 K/uL (130-400); RDW Coefficient of Variation 17.1 % (11.5-14.5); RDW Standard Deviation 52.1 fL (36.4-46.3); Red Blood Count 3.78 M/uL (4.7-6.1); White Blood Count 15.62 K/uL (4.8-10.8)
[2020-06-28 07:14] LABS: BUN Creatinine Ratio 20.6 (10-20); Calcium 8.8 mg/dl (8.5-10.1); Creatinine Clr Calc Pharmacy 81.6 ml/min; Est GFR (African American) 101.7; Est GFR (Non-African American) 87.8; Magnesium 1.8 mg/dl (1.8-2.4); Potassium 3.9 mmol/L (3.5-5.1)
[2020-06-28] MEDS: ENOXAPARIN INJ 40 MG/0.4 ML SYR SQ SCH (07:18)
[2020-06-28] MEDS: UMECLIDINIUM BROMIDE 62.5MCG/BLISTER 7 PUFFS/INHALER INH SCH (07:18)
[2020-06-28] MEDS: DEXAMETHASONE SOD PHOSPHATE 6 MG in SYRINGE 0 ML IV SCH (07:18)
[2020-06-28] MEDS: MUPIROCIN 2% OINT 22 GM TUBE EXT SCH ×2 (07:19→22:04)
[2020-06-28] MEDS: AMOXICILLIN/CLAVULANATE 875 MG TAB PO SCH ×2 (07:21→16:47)
[2020-06-28] MEDS: DOCUSATE SODIUM 100 MG CAP PO SCH (07:21)
[2020-06-28] MEDS: IRON POLYSACCHARIDE COMPLEX 150 MG CAPSULE PO SCH (07:21)
[2020-06-28] MEDS: ZINC SULFATE 220 MG CAPSULE PO SCH (07:22)
[2020-06-28] MEDS: FAMOTIDINE 20 MG TAB PO SCH (07:22)
[2020-06-28] MEDS: CHOLECALCIFEROL 1,000 UNITS 25 MCG TAB PO SCH (07:22)
[2020-06-28] MEDS: FOLIC ACID 1 MG TAB PO SCH (07:23)
[2020-06-28] MEDS: DULoxetine HCL 60 MG CAP PO SCH (07:23)
[2020-06-28] MEDS: PANTOprazole 40 MG TAB PO SCH (07:23)
[2020-06-28] MEDS: ASPIRIN 81 MG ECTAB PO SCH (07:24)
[2020-06-28] MEDS: ARIPiprazole 10 MG TAB PO SCH (07:24)
[2020-06-28] MEDS: ASCORBIC ACID 500 MG TAB PO SCH (07:24)
[2020-06-28] MEDS: FUROSEMIDE 40 MG TAB PO SCH (07:25)
[2020-06-28] MEDS: SUCRALFATE 1 GM/10 ML UDC PO SCH ×3 (07:25→16:45)
[2020-06-28] MEDS: TICAGRELOR 90 MG TAB PO SCH (07:27)
[2020-06-28] MEDS: clonazePAM 0.5 MG TAB PO SCH (07:27)
[2020-06-28] MEDS: POTASSIUM CHLORIDE CRTAB 20 MEQ TABCR PO SCH ×2 (07:27→15:17)
[2020-06-28] MEDS: METOPROLOL SUCC 25MG EXT REL TAB PO SCH (07:28)
--- NOTE | 2020-06-28 08:09 | XRay Report ---
XR chest 1V portable HISTORY: increased O2 need COMPARISON: Chest 06/25/2020. FINDINGS: No pneumothorax or no pleural effusions. The heart remains normal in size. Extensive bilate ral airspace opacities have slightly improved. IMPRESSION: Slight improvement in the extensive bilateral airspace opacities likely representing a pneumonia. ACT 112: Negative or not required by law. Electronically signed by: Ti Vicente M.D. 06/28/2020 8:08 AM
[2020-06-28] MEDS ORDERED: MoRPHine SULFATE 2 MG/ML CARP IV STA (09:02)
--- NOTE | 2020-06-28 09:04 | Hospitalist Progress Note ---
Date of Service June 28, 2020 Assessment & Plan (1) Hypoxia: acute respiratory failure with hypoxia As above, secondary to pulmonary edema and Covid-19 pneumonia as well as COPD exacerbation on Vapotherm, worse today 35L and 80% FiO2 required BIPAP last night working really hard to breathe, RR 30-40 with accessory muscle use CXR 06/23 with worsening infiltrates increased Lasix to 40mg BID to try to keep lungs dry -Continue Decadron for Covid-19 until 06/28 Morphine 2mg IV now to see if it gives him some relief DNR status (2) COVID-19: dexamethasone 6mg IV daily, last day is today, day 10 -completed remdesivir, 5 days no convalescent plasma given pulmonary edema and EF of 15% continues to be on vapotherm, 35L and 80% fio2 more labored breathing this morning, tachypnea, using accessory muscles needed BIPAP last night increase Lasix to 40mg BID to keep lungs dry discussed with Dr. Harvey, he feels his hypoxia is due to worsening COVID patient has deteriorated in the past 48 hours had a conversation this morning about goals of care, he states he would NOT want intubated, would NOT want CPR or shocks if his heart stops he says he would prefer to peacefully as opposed to being on ventilator changed him to DNR he says he has not family, his in March 2019, he only has his dog and cat he misses them, just wants to go home I told him he is on too much oxygen to go home on hospice (3) Acute diverticulitis: CT abdomen/pelvis performed for acute GI bleeding and left lower quadrant pain With sigmoid diverticulitis seen, no bowel obstruction Pain is now resolved with bowel rest and IV antibiotics, having occasional loose stools -advance diet to heart healthy, low fiber, eating small amounts, had pudding this morning -treated with IV Zosyn from 06/19 to 06/26 change to Augmentin BID for three more days, stop evening 06/29 no fever, WBC stable at 15k, small loose stools (4) Congestive heart failure due to cardiomyopathy: EF 16% per [facility] [place] reports. Likely ICM - Patient discharged on LifeVest - Continue lifeVest when discharged, does not need to wear in the hospital - Medication optimization as above - with acute on chronic systolic CHF--> will increase Lasix to 40mg BID negative fluid balance each day Cr is 0.9 and K is 3.9 continue KCl 20 TID -Appreciate cardiology consultation - Slowly introduce SUZANNE/ARB onto patient as blood pressure can tolerate, SBP in 90's today Follow I's and O's Continue metoprolol he essentially has end stage heart failure, severe cardiomyopathy making it very difficult to survive COVID infection he wants to be DNR (5) Epistaxis: brief, happened 06/27 in the evening will hold Lovenox and aspirin, continue Brilinta due to stent Mupirocin BID to nostrils, nasal spray PRN no nose bleeds over night or this morning Hb stable (6) Lethargy: Secondary to Covid-19, hypoxia, generalized weakness he is alert today, continue the BID dosing of Klonopin PT/OT, but now too short of breath (7) Chest pain: Patient presented with left-sided chest pain reminiscent of his previous angina before his STEMI 2 weeks prior to admission Troponin trended down likely from previous STEMI from 3--> 2-->1.5 No evidence of acute coronary syndrome (8) Black stool: had dark stool on 06/19, resolved for almost a week now Hgb has remained stable CT abd/pel with acute sigmoid diverticulitis Protonix 40 mg once daily -Also continue Pepcid -Continue Carafate as per GI x2-week course -Okay to restart Lovenox -Continue dual antiplatelet therapy due to recent stent in the LAD (9) Pneumonia: Secondary to Covid-19 as above PCT 0.27, borderline elevated (10) Coronary disease: Status post recent STEMI with LAD stent-remains chest pain-free since admission - Cardiology consulted- appreciate assistance, no current plans to go to medical lab technologist - Continue DAPT - Continue BB as patient remains hemodynamically stable and no evidence of worsening failure - Continue high dose statin (11) HTN (hypertension): Blood pressures chronically low likely secondary to severe systolic dysfunction Continue metoprolol, Lasix (12) COPD (chronic obstructive pulmonary disease): As above Patient recently stopped smoking, smoked 1-5 cigarettes per day for 40 years. With wheezing here and mild COPD exacerbation - Continue albuterol and Umeclidinium -On Decadron for hypoxia with Covid-19 pneumonia (13) Anxiety and depression: Continue current outpatient regime but decrease clonazepam to a lower dose of 0.5mg bid given previous lethargy on higher dose Continue home Abilify, trazodone, duloxetine (14) Hypothyroid: TSH mildly elevated, free T4 also mildly elevated-unclear picture Continue home Synthroid dose for now Repeat TFTs in 2 weeks (15) GERD (gastroesophageal reflux disease): DC IV Protonix for suspected GI bleed and convert back to p.o. Protonix once daily now Continue Pepcid (16) Hypokalemia: 3.9 today, will continue KCl 20 TID repeat tomorrow (17) DVT prophylaxis: Okay to restart Lovenox SQ, continue SCDs Disposition-continued stay in PCU, guarded prognosis, very frail given severe CHF, acute diverticulitis, Covid-19, and acute respiratory failure with hypoxia Came from [facility] rehab, would probably need to return once he is adequately treated anticipate him being here until next week Full code Admission and Anticipated Discharge Date Admission Date: June 18, 2020 Subjective patient had a really rough night, had to be placed on BIPAP, did not tolerate very well this morning he is working harder to breath, RR in the 30's, saturations 88% on 35L and 80% FiO2 at one point he pulled off his oxygen and sat up at the bedside, HR jumped to 130's no further chest pain since yesterday he has been telling the RN he just wants to go home to see his dog and cat he is depressed, thinking about his who in March 2019, viral pneumonia, he suspects it was COVID I told him that he is getting worse, I have serious concerns about him surviving this admission we talked about goals of care, intubation if he gets worse, he said he would not want intubated, he would not want CPR, would not want shocked he agreed that he would want to peacefully if he gets worse told him I would give him a little Morphine now as he is breathing really fast WBC 15k, Hb 10, plts 422, Cr 0.94, K 3.9 BP running in 90's systolic, HR 110's I updated the RN about our conversation, changed to DNR if he gets worse to the point that he needs BIPAP I will talk with him about comfort measures Review of Systems Review of Systems: All systems reviewed & are unremarkable except as noted in Subjective Constitutional: + fatigue and + weakness; no fever Respiratory: + dyspnea and + dyspnea on exertion; no cough Cardiovascular: + dyspnea, + dyspnea at rest and + dyspnea on exertion; no chest pain and no edema Gastrointestinal: + diarrhea/loose stools; no abdominal pain, no nausea, no vomiting and no constipation Physical Exam Constitutional: well developed, + ill appearing, + thin, + frail appearing and + in distress (respiratory); + uncomfortable Neck: trachea midline, no thyromegaly Respiratory: + labored breathing, + uses accessory muscles and + tachypneic; no respiratory distress Auscultation: + crackles (bases) Cardiovascular: Rate/Rhythm: regular rhythm and + tachycardic Heart Sounds: normal S1 and normal S2; no murmur Vessels: no JVD Extremities: normal cap illary refill; no edema Gastrointestinal (Abdomen): normal bowel sounds, soft, nontender, no hepatosplenomegaly Musculoskeletal: no cyanosis or clubbing, extremities motor strength 5/5 Skin: no rashes, warm and dry Neurologic: patellar DTR's 2+ bilat, sensation intact and PERRL, EOMI, accommodation nl, no face palsy, no dysarthria Psychiatric: Orientation: alert and oriented x 3 Affect: + depressed affect and + flat affect Lymphatic: no cervical or axillary lymphadenopathy Results & Data Results & Data ([facility]) Vital Signs (Past 12 Hours) Vital Signs Temp Pulse Pulse Pulse Resp BP Pulse Ox 06/28/20 07:19 113 H 28 H 92 06/28/20 07:10 104 H 24 93 06/28/20 07:00 36.6 C 114 H 114 H 35 H 97/69 L 91 06/28/20 06:58 06/28/20 04:42 100 H 28 H 96 06/28/20 03:58 36.6 C 102 H 24 86/52 L 93 06/28/20 02:25 94 H 28 H 89 L 06/28/20 00:12 94 H 06/27/20 23:20 94 H 28 H 87 L 06/27/20 23:10 36.8 C 97 H 22 102/63 89 L Pulse Ox 06/28/20 07:19 06/28/20 07:10 06/28/20 07:00 06/28/20 06:58 96 06/28/20 04:42 06/28/20 03:58 06/28/20 02:25 06/28/20 00:12 06/27/20 23:20 06/27/20 23:10 PG Care Time/CCT Total # of Minutes Spent Total Time Spent with Patient: Total time spent is greater than 50% in coordination of care (as documented) at patient's floor/unit and/or counseling patient: Coding Level of Care Code 57304 Subseq Hosp Care Lvl 3 Diagnoses Hypoxia R09.02 COVID-19 U07.1 Acute diverticulitis K57.92 Congestive heart failure due to cardiomyopathy I50.9; I42.9 Epistaxis R04.0 Lethargy R53.83 Chest pain R07.9 Black stool K92.1 Pneumonia J18.9 Coronary disease I25.119 Coronary Disease-Associated Artery/Lesion type: [place] artery [place] vs. transplanted heart: [place] heart Associated angina: with unspecified angina HTN (hypertension) I10 Hypertension type: unspecified COPD (chronic obstructive pulmonary disease) J44.9 COPD type: emphysema Anxiety and depression F41.9; F32.9 Hypothyroid E03.9 Hypothyroidism type: unspecified GERD (gastroesophageal reflux disease) K21.9 Hypokalemia E87.6 DVT prophylaxis Z29.9 (1) Coronary disease Coronary Disease-Associated Artery/Lesion type: [place] artery [place] vs. transplanted heart: [place] heart Associated angina: with unspecified angina Qualified Code(s): I25.119 - Atherosclerotic heart disease of [place] coronary artery with unspecified angina pectoris (2) HTN (hypertension) Hypertension type: unspecified Qualified Code(s): I10 - Essential (primary) hypertension (3) COPD (chronic obstructive pulmonary disease) COPD type: emphysema (4) Hypothyroid Hypothyroidism type: unspecified Qualified Code(s): E03.9 - Hypothyroidism, unspecified
[2020-06-28] MEDS ORDERED: LORazepam 0.5 MG/1 ML VIAL IV PRN (10:29)
[2020-06-28] MEDS ORDERED: LORazepam 0.5 MG/1 ML VIAL IV STA (10:29)
[2020-06-28] MEDS: MoRPHine SULFATE 2 MG/ML CARP IV PRN ×2 (10:58→14:52)
[2020-06-28] MEDS ORDERED: LORazepam 1 MG/2 ML VIAL IV STA (16:03)
[2020-06-28] MEDS ORDERED: LORazepam 1 MG/2 ML VIAL IV PRN ×2 (16:03→18:45)
[2020-06-28] MEDS ORDERED: MIDAZOLAM HCL 5 MG/ML VIAL IV STA (16:24)
[2020-06-28] MEDS ORDERED: STAT IV Infusion **Titration per Protocol STA (16:25)
[2020-06-28] MEDS ORDERED: MIDAZOLAM HCL 1 MG/ML 2ML VIAL ONE (16:26)
[2020-06-28] MEDS: MoRPHine SULF/NSS 250 MG/250 ML BTL IV SCH (16:50)
[2020-06-28] MEDS ORDERED: FUROSEMIDE 40 MG TAB PO SCH (17:00)
[2020-06-28] MEDS: fentaNYL citrate 100 MCG/2 ML VIAL IV PRN ×3 (17:15→18:26)
[2020-06-28] MEDS ORDERED: GLYCOPYRROLATE 0.2 MG/ML VIAL IV PRN (17:28)
[2020-06-28] MEDS ORDERED: ONDANSETRON INJ 2 MG/ML 2 ML VIAL IV PRN (18:47)
[2020-06-29] MEDS: fentaNYL citrate 100 MCG/2 ML VIAL IV PRN ×7 (01:26→06:55)
[2020-06-29] MEDS: MoRPHine SULFATE 2 MG/ML CARP IV PRN ×3 (01:56→05:32)
[2020-06-29] MEDS: MoRPHine SULF/NSS 250 MG/250 ML BTL IV SCH (05:03)
--- NOTE | 2020-06-29 07:24 | Death Pronouncement Note ---
Date of Service June 29, 2020 Pronouncement Note Admission Date Admission Date: June 18, 2020 Date and Time of Date of : 06/29/20 Time of : 06:58 PCOD Preliminary cause of : COVID-19 Contributing Factors (1) Hypoxia: (2) COVID-19: (3) Acute diverticulitis: (4) Congestive heart failure due to cardiomyopathy: (5) Epistaxis: (6) Lethargy: (7) Chest pain: (8) Black stool: (9) Pneumonia: (10) Coronary disease: (11) HTN (hypertension): (12) COPD (chronic obstructive pulmonary disease): (13) Anxiety and depression: (14) Hypothyroid: (15) GERD (gastroesophageal reflux disease): (16) Hypokalemia: (17) DVT prophylaxis: Hospital Course Hospital Course: see discharge summary Additional Data Confirmation of : no pulse, no respirations, no heart sounds and pupils fixed and dilated Family: not available Attending/PCP notified?: Yes Attending physician: Gallito Mcdonough, DO Was code activated?: No Autopsy requested?: No elevator examiner notified?: No Organ bank notified?: No Advance directives: No Coding Level of Care Code None Diagnoses Hypoxia R09.02 COVID-19 U07.1 Acute diverticulitis K57.92 Congestive heart failure due to cardiomyopathy I50.9; I42.9 Epistaxis R04.0 Lethargy R53.83 Chest pain R07.9 Black stool K92.1 Pneumonia J18.9 Coronary disease I25.119 Coronary Disease-Associated Artery/Lesion type: [place] artery [place] vs. transplanted heart: [place] heart Associated angina: with unspecified angina HTN (hypertension) I10 Hypertension type: unspecified COPD (chronic obstructive pulmonary disease) J44.9 COPD type: emphysema Anxiety and depression F41.9; F32.9 Hypothyroid E03.9 Hypothyroidism type: unspecified GERD (gastroesophageal reflux disease) K21.9 Hypokalemia E87.6 DVT prophylaxis Z29.9
--- NOTE | 2020-06-29 07:35 | Discharge Summary ---
Date of Service June 29, 2020 Admission HPI Per Admitting Provider 60-year-old gentleman with a significant history for COPD, smoker quit as of 07 June, general debility and weakness, hypertension, depression/anxiety, hyperlipidemia, and hypothyroidism. Brought to the emergency room today via EMS from [facility] rehab where the patient was a resident following a STEMI on 07 June. Patient was originally seen on 06 June at [facility] where the patient was experiencing chest pain and having a NSTEMI as above and was transferred to [facility] for cardiac cath and evaluation. Patient was taken to the pathology laboratory director and status post PTCA to the proximal LAD also noticed to have a ejection fraction of 16%. Was discharged on a life vest for further evaluation following rehabilitation. Patient also underwent treatment for CAP at that time and presumed to complete a course of levofloxacin. Patient got up this morning to go to rehab, was experiencing symptoms very similar to what he experienced on 07 June; to include chest pain left sternal squeezing in nature, shortness of breath, not mild nausea, and feeling cold and sweaty. Patient received aspirin oxygen and an EKG at [facility] and that is when the patient's symptoms improved. Patient has been chest pain-free in the ER and on my evaluation. In the emergency room, cardiology was emergently consulted, EKG was done. Patient will be admitted for observation treatment of symptoms and monitoring of hemodynamic/fluid volume status. Patient wishes to be full code. COVID (+) Principal Diagnosis COVID 19 pneumonia causing ARDS and acute hypoxic respiratory failure Discharge Exam no pulse, no respirations, no heart sounds, no breath sounds, pupils fixed, unresponsive Discharge Data Allergies Allergy/AdvReac Type Severity Reaction Status Date / Time No Known Allergies Allergy Unverified 06/18/20 12:07 Consultations 06/18/20 12:54 ED Decision to Admit Stat 06/18/20 13:17 Consult Cardiology Stat 06/19/20 08:51 Consult Health Information Management Routine 06/19/20 12:55 Consult Gastroenterology Routine Procedures Performed Operation Date: 06/20/20 16:00 <No data on this case meets the specified criteria> Ordered Studies 06/19/20 15:22 CT abd pelvis oral and IV con Urgent Hospital Course (1) ARDS (adult respiratory distress syndrome): bilateral infiltrates, requiring 100% FiO2 patient was treated for over a week with dexamethasone, supportive care, Lasix to keep lungs dry patient had a rough night on 06/27 to 06/28 requiring BIPAP which he did not tolerate well and did not want he was placed on Vapotherm at 35L and 80% FiO2 we had a long discussion with RN present about worsening prognosis, I was concerned that he would require intubation before the day was over we discussed poor prognosis with not only COVID pneumonia but severe ischemic cardiomyopathy and EF of 16% I asked him about family, he said he only had a cat and dog, his best friend his had in 2018 he said he did not have any children, no siblings that he wanted contacted he said that he did not want intubated or placed on a ventilator, would not want CPR or shocks, if given the choice he would want to peacefully patient was stable on high flow laying on his side most of the day on 06/28/20 unfortunately he took off his high flow and sat at edge of the bed around 1600 he went into fulminant respiratory distress, saturations dropped to 60's on room air had to place him on BIPAP 02/25 100% FiO2 to get his saturations up to 80s, he was struggling, wanting to take off the BIPAP at this time it was clear that he would not survive without intubation, which he had stated he did not want aggressive comfort measures undertaken with Ativan, Morphine, Versed, Fentanyl once adequate sedation was achieved the RN was able to take off the BIPAP and place him on low flow for comfort patient comfortably at 0658 this morning (2) Hypoxia: acute respiratory failure with hypoxia, ARDS As above, secondary to pulmonary edema and Covid-19 pneumonia as well as COPD exacerbation on Vapotherm, worse on 06/28 35L and 80% FiO2 required BIPAP working really hard to breathe, RR 30-40 with accessory muscle use CXR 06/23 with worsening infiltrates increased Lasix to 40mg BID to try to keep lungs dry -Continue Decadron for Covid-19 DNR status (3) COVID-19: dexamethasone 6mg IV daily, received 10 days -completed remdesivir, 5 days no convalescent plasma given pulmonary edema and EF of 15% continued to be on vapotherm, 35L and 80% fio2 more labored breathing morning of 06/28, tachypnea, using accessory muscles needed BIPAP increased Lasix to 40mg BID to keep lungs dry patient had deteriorated in the past 48 hours had a conversation about goals of care, he states he would NOT want intubated, would NOT want CPR or shocks if his heart stops he says he would prefer to peacefully as opposed to being on ventilator changed him to DNR he says he has not family, his in March 2019, he only has his dog and cat he misses them, just wants to go home I told him he is on too much oxygen to go home on hospice (4) Acute diverticulitis: CT abdomen/pelvis performed for acute GI bleeding and left lower quadrant pain With sigmoid diverticulitis seen, no bowel obstruction Pain is now resolved with bowel rest and IV antibiotics, having occasional loose stools -advance diet to heart healthy, low fiber, eating small amounts, had pudding this morning -treated with IV Zosyn from 06/19 to 06/26 change to Augmentin BID for three more days, stop evening 06/29 no fever, WBC stable at 15k, small loose stools (5) Congestive heart failure due to cardiomyopathy: EF 16% per [facility] [place] reports. Likely ICM - Patient discharged on LifeVest - Continue lifeVest when discharged, does not need to wear in the hospital - Medication optimization as above - with acute on chronic systolic CHF--> will increase Lasix to 40mg BID negative fluid balance each day Cr is 0.9 and K is 3.9 continue KCl 20 TID -Appreciate cardiology consultation - Slowly introduce SUZANNE/ARB onto patient as blood pressure can tolerate, SBP in 90's today Follow I's and O's Continue metoprolol he essentially has end stage heart failure, severe cardiomyopathy making it very difficult to survive COVID infection he wants to be DNR (6) Epistaxis: brief, happened 06/27 in the evening will hold Lovenox and aspirin, continue Brilinta due to stent Mupirocin BID to nostrils, nasal spray PRN no nose bleeds over night or this morning Hb stable (7) Lethargy: Secondary to Covid-19, hypoxia, generalized weakness he is alert today, continue the BID dosing of Klonopin PT/OT, but now too short of breath (8) Chest pain: Patient presented with left-sided chest pain reminiscent of his previous angina before his STEMI 2 weeks prior to admission Troponin trended down likely from previous STEMI from 3--> 2-->1.5 No evidence of acute coronary syndrome (9) Black stool: had dark stool on 06/19, resolved for almost a week now Hgb has remained stable CT abd/pel with acute sigmoid diverticulitis Protonix 40 mg once daily -Also continue Pepcid -Continue Carafate as per GI x2-week course -Okay to restart Lovenox -Continue dual antiplatelet therapy due to recent stent in the LAD (10) Pneumonia: Secondary to Covid-19 as above PCT 0.27, borderline elevated (11) Coronary disease: Status post recent STEMI with LAD stent-remains chest pain-free since admission - Cardiology consulted- appreciate assistance, no current plans to go to pathology laboratory director - Continue DAPT - Continue BB as patient remains hemodynamically stable and no evidence of worsening failure - Continue high dose statin (12) HTN (hypertension): Blood pressures chronically low likely secondary to severe systolic dysfunction Continue metoprolol, Lasix (13) COPD (chronic obstructive pulmonary disease): As above Patient recently stopped smoking, smoked 1-5 cigarettes per day for 40 years. With wheezing here and mild COPD exacerbation - Continue albuterol and Umeclidinium -On Decadron for hypoxia with Covid-19 pneumonia (14) Anxiety and depression: Continue current outpatient regime but decrease clonazepam to a lower dose of 0.5mg bid given previous lethargy on higher dose Continue home Abilify, trazodone, duloxetine (15) Hypothyroid: TSH mildly elevated, free T4 also mildly elevated-unclear picture Continue home Synthroid dose for now Repeat TFTs in 2 weeks (16) GERD (gastroesophageal reflux disease): DC IV Protonix for suspected GI bleed and convert back to p.o. Protonix once daily now Continue Pepcid (17) Hypokalemia: 3.9 today, will continue KCl 20 TID repeat tomorrow (18) DVT prophylaxis: Okay to restart Lovenox SQ, continue SCDs Disposition-continued stay in PCU, guarded prognosis, very frail given severe CHF, acute diverticulitis, Covid-19, and acute respiratory failure with hypoxia Came from [facility] rehab, would probably need to return once he is adequately treated anticipate him being here until next week Full code Total Time Total Time Spent Total Time Spent (In Minutes): 20 Total Time Includes: Examination of the Patient Discharge Plan Discharge Items Reason For Visit: ANGINA [facility] - [facility]-Alone Forms: My [facility] Medications and DC Order Prescriptions: No Action atorvastatin 80 mg tablet 80 mg PO HS RF: 0 acetaminophen [Tylenol] 325 mg Tablet 650 mg PO QID PRN (Reason: Pain) RF: 0 polysaccharide iron complex [Ferrex 150] 150 mg iron Capsule 150 mg PO BID RF: 0 clonazepam 1 mg tablet 0 mg PO UD RF: 0 melatonin 3 mg Tablet 3 mg PO HS RF: 0 clopidogrel 75 mg tablet 75 mg PO DAILY RF: 0 aspirin 81 mg tablet,delayed release (DR/EC) 81 mg PO DAILY RF: 0 famotidine 20 mg Tablet 20 mg PO DAILY RF: 0 ascorbic acid (vitamin C) [Vitamin C] 500 mg Tablet 500 mg PO DAILY RF: 0 levothyroxine 50 mcg Tablet 50 mcg PO DAILY RF: 0 hydrocodone-acetaminophen 7.5-325 mg Tablet 1 tab PO Q6H PRN (Reason: Pain) RF: 0 pantoprazole 40 mg Tablet,Delayed Release (Dr/Ec) 40 mg PO DAILYBB RF: 0 trazodone 150 mg Tablet 150 mg PO HS RF: 0 docusate sodium 100 mg Capsule 100 mg PO BID RF: 0 folic acid 1 mg Tablet 1 mg PO DAILY RF: 0 furosemide 20 mg Tablet 20 mg PO DAILY RF: 0 metoprolol succinate 25 mg tablet extended release 24 hr 0 mg PO DAILY RF: 0 albuterol 90 mcg/actuation Aerosol 90 mcg INHALATION Q4H PRN (Reason: Wheezing) RF: 0 zinc sulfate 220 mg Capsule 220 mg PO DAILY RF: 0 enoxaparin 40 mg/0.4 mL Syringe 40 mg SUBCUT DAILY RF: 0 aripiprazole 10 mg tablet 10 mg PO DAILY RF: 0 duloxetine 60 mg capsule,delayed release(DR/EC) 60 mg PO BID RF: 0 cholecalciferol (vitamin D3) [Vitamin D3] 50 mcg (2,000 unit) Capsule 50 mcg PO DAILY RF: 0 Incruse Ellipta 62.5 mcg/actuation Blister With Device 1 inh INHALATION DAILY RF: 0 Admission Data Admit Date/Time: 06/18/20 14:07 Attending Provider: Gallito Mcdonough Admit Provider: Saud Butler [facility] Other Providers: Sherron Cisneros ; Justino Harvey ; Yanely Prasad ; [facility] Coding Level of Care Code D/C Day Management <30 mins Diagnoses ARDS (adult respiratory distress syndrome) J80 Hypoxia R09.02 COVID-19 U07.1 Acute diverticulitis K57.92 Congestive heart failure due to cardiomyopathy I50.9; I42.9 Epistaxis R04.0 Lethargy R53.83 Chest pain R07.9 Black stool K92.1 Pneumonia J18.9 Coronary disease I25.119 Coronary Disease-Associated Artery/Lesion type: [place] artery [place] vs. transplanted heart: [place] heart Associated angina: with unspecified angina HTN (hypertension) I10 Hypertension type: unspecified COPD (chronic obstructive pulmonary disease) J44.9 COPD type: emphysema Anxiety and depression F41.9; F32.9 Hypothyroid E03.9 Hypothyroidism type: unspecified GERD (gastroesophageal reflux disease) K21.9 Hypokalemia E87.6 DVT prophylaxis Z29.9
--- NOTE | 2020-06-29 10:55 | Electrocardiogram Report ---
Test Reason : Blood Pressure : / mmHG Vent. Rate : 085 BPM Atrial Rate : 085 BPM P-R Int : 164 ms QRS Dur : 102 ms QT Int : 402 ms P-R-T Axes : 061 027 240 degrees QTc Int : 478 ms Normal sinus rhythm Anteroseptal infarct (cited on or before 18-JUN-2020) T wave abnormality, consider inferolateral ischemia Abnormal ECG When compared with ECG of 21-JUN-2020 14:58, Inverted T waves have replaced nonspecific T wave abnormality in Inferior leads T wave inversion now evident in Anterior leads Confirmed by Maco Mcconnell ([id number]) on 06/29/2020 10:55:16 AM Referred By: REFERRED SELF Confirmed By:Maco Mcconnell
== END 2020-06-29 08:43 | disposition expired | DRG 177 ==
LOC: ED 11:01 → 2E 14:07 → SUATTDRO 14:07 → 2E 16:36
DX: Z79.899 Other long term (current) drug therapy; Z79.01 Long term (current) use of anticoagulants; F41.8 Other specified anxiety disorders; I21.02 ST elevation (STEMI) myocardial infarction involving left anterior descending coronary artery; E87.6 Hypokalemia; Z79.82 Long term (current) use of aspirin; K21.9 Gastro-esophageal reflux disease without esophagitis; J96.01 Acute respiratory failure with hypoxia; E03.9 Hypothyroidism, unspecified; Z72.89 Other problems related to lifestyle; I25.5 Ischemic cardiomyopathy; E78.5 Hyperlipidemia, unspecified; F17.210 Nicotine dependence, cigarettes, uncomplicated; J12.82 Pneumonia due to coronavirus disease 2019; I50.23 Acute on chronic systolic (congestive) heart failure; J44.1 Chronic obstructive pulmonary disease with (acute) exacerbation; Z79.890 Hormone replacement therapy; Z51.5 Encounter for palliative care; Z79.02 Long term (current) use of antithrombotics/antiplatelets; I11.0 Hypertensive heart disease with heart failure; Z82.49 Family history of ischemic heart disease and other diseases of the circulatory system; K57.32 Diverticulitis of large intestine without perforation or abscess without bleeding; R19.5 Other fecal abnormalities; U07.1 COVID-19; R04.0 Epistaxis; Z99.89 Dependence on other enabling machines and devices; I25.119 Atherosclerotic heart disease of native coronary artery with unspecified angina pectoris; Z66 Do not resuscitate; Z95.5 Presence of coronary angioplasty implant and graft; J44.0 Chronic obstructive pulmonary disease with (acute) lower respiratory infection